=== PATIENT | female | born 1940 | race Caucasian/White ===

== ENCOUNTER 2018-05-13 17:32 | Inpatient (IN) ==
[2018-05-13] MEDS ORDERED: Famotidine 20 MG/2 ML VIAL IVP ONE (17:54)
[2018-05-13] MEDS ORDERED: Promethazine 12.5 MG in 0.9 % Sodium Chloride 50 ML IVPB ONE (17:55)
[2018-05-13] MEDS ORDERED: 0.9 % Sodium Chloride 1,000 ML IVC ONE (17:57)
--- NOTE | 2018-05-13 17:57 | Emergency Department Note ---
Disposition Clinical Impression: Elevated troponin, Atrial fibrillation with controlled ventricular rate, Gastric volvulus, Hiatal hernia Nausea & vomiting Qualifiers: Vomiting type: unspecified Vomiting Intractability: intractable Qualified Code( s): R11.2 - Nausea with vomiting, unspecified Disposition: Admitted As Inpatient Condition: Fair Referrals: Maxwell aRmos MD [Primary Care Provider] - Forms: ED Satisfaction Letter Time of Disposition: 18:50 Nausea/Vomiting/Diarrhea HPI - General Chief complaint: ED Nausea/Vomiting/Diarrhea Stated complaint: Vomiting Time Seen by Provider: 05/13/18 17:45 Source: patient Mode of arrival: ambulatory Limitations: no limitations Nursing Notes Reviewed: Yes Vital Signs Reviewed: Yes - History of Present Illness HPI Narrative: Patient presents with ongoing nausea and vomiting. She was seen in the emergency department yesterday for similar symptoms and states her symptoms returned today. She complains of back pain but states this is chronic and received injections by her pain specialist today. She is taking Zofran without relief. She denies abdominal pain or other acute GI/ symptoms Pt Subjective Complaint: nausea, vomiting Onset (ago): day(s) Description of emesis: food contents Associated Abdominal Pain: No Improves with: nothing Worsens with: vomiting Associated symptoms: Reports: other (Back pain) - Related Data Home Medications Medication Instructions Recorded Confirmed Ibuprofen [Advil] 200 mg PO BID PRN 01/09/18 01/09/18 Levothyroxine Sodium 75 mcg PO 0630 01/09/18 01/09/18 Lisinopril [Zestril] 5 mg PO DAILY 01/09/18 01/09/18 Omeprazole [PriLOSEC] 20 mg PO DAILY 01/09/18 01/09/18 Simvastatin [Zocor] 10 mg PO HS 01/09/18 01/09/18 Previous Rx's Medication Instructions Recorded Ondansetron ODT [Zofran ODT] 4 mg SL Q6HR PRN #10 tab.rapdis 05/11/18 Allergies Allergy/AdvReac Type Severity Reaction Status Date / Time tramadol AdvReac Dizziness Verified 05/12/18 13:38 All systems ED: reviewed and negative except as stated. Constitutional: Reports: as per HPI Eyes: Reports: as per HPI ENT ED: Reports: as per HPI Cardiovascular: Reports: as per HPI Respiratory: Reports: as per HPI Gastrointestinal: Reports: nausea, vomiting Genitourinary: Reports: as per HPI Musculoskeletal: Reports: back pain Integumentary: Reports: as per HPI Neurological: Reports: as per HPI Psychiatric: Reports: as per HPI Endocrine: Reports: as per HPI Hematological/Lymphatic: Reports: as per HPI Allergic/Immunologic: Reports: as per HPI Past Medical History - Past Medical History Source: patient Medical history: Reports: GERD, hyperlipidemia, hypertension, thyroid disease Surgical history: Reports: hysterectomy Psychiatric history: Reports: no psych history - Social History Smoking Status: Never smoker Smokeless Tobacco Status: No Alcohol use: Reports: none Drug use: Reports: none Physical Exam - General Limitations: no limitations General appearance: alert, in no apparent distress - Head Head exam: atraumatic - Eye Eye exam: Present: normal appearance - ENT ENT exam: normal exam - Neck Neck exam: Present: normal inspection - Chest Chest inspection: Present: normal inspection, symmetric chest wall rise - Respiratory Respiratory exam: Present: normal lung sounds bilaterally - Cardiovascular Cardiovascular exam: Present: tachycardia, irregular rhythm, normal heart sounds - Abdominal Exam Abdominal exam: Present: soft, Non-Tender. Absent: tenderness, distention, guarding, rebound - Rectal Exam Rectal exam: Present: deferred - Extremities Exam Extremities exam: Present: normal inspection - Neurological Exam Neurological exam: Present: alert, oriented X3, CN II-XII intact - Psychiatric Psychiatric exam: Present: normal affect, normal mood - Skin Skin exam: Present: warm, dry, intact Course Course Narrative: Patient presents with ongoing nausea and vomiting. She is now tachycardic with an irregularly irregular rhythm suspicious for new onset atrial fibrillation with RVR. She has a benign abdominal exam but given her ongoing symptoms I will obtain a CT scan her abdomen and pelvis. IV fluids initiated. IV Cardizem initiated. Labs ordered - Reevaluation(s) Reevaluation #1: Patient resting couple. She continues to deny abdominal pain. Test results discussed Reevaluation #2: Dr. Price recs NGT and admit to medicine service with his consultation to follow - Consultations Consultation #1: case d/w radiologist 19:40: concern for complex gastric anatomy, hiatal hernia , gastric volvulus Consultation #2: call placed to surgery health information technologist. case d/w Dr. Price at 19:42 who is he will review the CT scan. Vital Signs Temperature 97.9 F 05/13/18 17:33 Pulse Rate 168 05/13/18 17:33 Respiratory Rate 18 05/13/18 17:33 Blood Pressure 136/101 05/13/18 17:33 O2 Sat by Pulse Oximetry 93 05/13/18 17:33 Temperature 97.9 F 05/13/18 17:42 Pulse Rate 84 05/13/18 19:54 Respiratory Rate 16 05/13/18 18:54 Blood Pressure 162/125 05/13/18 19:54 O2 Sat by Pulse Oximetry 92 05/13/18 19:54 Oxygen Delivery Oxygen Delivery Nasal Cannula Nausea/Vomiting/Diarrhea - Lab Data Lab results reviewed: Yes I reviewed the patient's lab results. Result diagrams: 05/13/18 18:00 05/13/18 18:00 Lab Results 05/13/18 05/13/18 05/13/18 Range/Units 18:00 18:00 18:00 WBC 18.6 H D (4.3-11.1) K/mcL RBC 5.15 H (3.82-4.97) M/mcL Hgb 15.5 H (11.5-15.4) g/dL Hct 46.2 H (35.3-44.9) % MCV 89.7 (83.0-100.0) fL MCH 30.1 (28.0-33.3) pg MCHC 33.5 (31.6-35.5) g/dL RDW 13.4 (11.5-14.5) % Plt Count 238 (140-400) K/mcL MPV 9.0 L (9.4-12.4) fL Immature Gran % 0.6 (0-4) % Seg Neutrophils % 87.5 % Lymphocytes % 5.7 % Monocytes % 6.1 % Eosinophils % 0.0 % Basophils % 0.1 % Neutrophils # 16.3 H (1.6-8.9) K/mcL Lymphocytes # 1.1 (0.6-4.6) K/mcL Monocytes # 1.1 (0.0-1.3) K/mcL Eosinophils # 0.0 (0.0-0.6) K/mcL Basophils # 0.0 (0.0-0.2) K/mcL PT 11.5 (9.4-12.1) Seconds INR 1.1 Sodium 137 (136-145) mEq/L Potassium 3.5 (3.5-5.1) mEq/L Chloride 101 (98-107) mEq/L Carbon Dioxide 21 L (23-29) mEq/L BUN 36 H (8-23) mg/dL Creatinine 1.19 (0.60-1.20) mg/dL Est GFR ( Amer) 53 L (> 60) Est GFR (Non-Af Amer) 44 L (> 60) BUN/Creatinine Ratio 30 H (6-26) Glucose 158 H (70-105) mg/dL Calculated Osmolality 296 (280-300) Calcium 10.3 (8.6-10.3) mg/dL Magnesium 1.8 (1.6-2.6) mg/dL Total Bilirubin 0.8 (0.3-1.0) mg/dL AST 32 (13-39) Units/L ALT 15 (7-52) Units/L Alkaline Phosphatase 101 (34-104) Units/L Troponin I 0.04 H* (< 0.04) ng/mL Serum Total Protein 7.5 (6.4-8.9) g/dL Albumin 4.4 (3.5-5.7) g/dL Globulin 3.1 (2.4-3.5) g/dL Albumin/Globulin Ratio 1.4 (1.1-2.2) Lipase 44 (11-82) Units/L - Radiology Data Radiology results reviewed: Yes I reviewed the patient's radiology results. - EKG Data EKG attestation: Yes I reviewed and interpreted this EKG. EKG results narrative: Irregularly irregular rhythm 138 bpm QRS 86 QT/QTC 306/386. No acute ST segment elevation Critical Care Time Critical Care Time: Yes Total Critical Care Time: 60 Attestation: The high probability of a clinically significant, sudden or life threatening deterioration of the [] system(s) required my full and direct attention, intervention and personal management. The aggregate critical care time was [] minutes. This time is in addition to time spent performing reported procedures but includes the following: [] Data Review and interpretation [] Patient assessment and monitoring of vital signs [] Documentation [] Medication orders and management
[2018-05-13 18:12] LABS: Basophils % 0.1 %; Hematocrit 46.2 % (35.3-44.9); Hemoglobin 15.5 g/dL (11.5-15.4); Immature Granulocytes % 0.6 % (0-4); Lymphocytes # 1.1 K/mcL (0.6-4.6); Lymphocytes % 5.7 %; Mean Corpuscular HGB Conc 33.5 g/dL (31.6-35.5); Mean Corpuscular Hemoglobin 30.1 pg (28.0-33.3); Mean Corpuscular Volume 89.7 fL (83.0-100.0); Monocytes # 1.1 K/mcL (0.0-1.3); Monocytes % 6.1 %; Platelet Count 238 K/mcL (140-400); Red Blood Count 5.15 M/mcL (3.82-4.97); Red Cell Distribution Width 13.4 % (11.5-14.5); Segmented Neutrophils % 87.5 %
[2018-05-13 18:13] LABS: Neutrophils # 16.3 K/mcL (1.6-8.9)
[2018-05-13 18:18] LABS: INR 1.1; Prothrombin Time 11.5 Seconds (9.4-12.1)
[2018-05-13 18:33] LABS: Albumin 4.4 g/dL (3.5-5.7); Albumin/Globulin Ratio 1.4 (1.1-2.2); Bilirubin,Total 0.8 mg/dL (0.3-1.0); Calcium 10.3 mg/dL (8.6-10.3); Globulin 3.1 g/dL (2.4-3.5); Magnesium 1.8 mg/dL (1.6-2.6); Potassium 3.5 mEq/L (3.5-5.1); Total Protein 7.5 g/dL (6.4-8.9)
[2018-05-13 18:39] LABS: Troponin I 0.04 ng/mL (< 0.04)
[2018-05-13] MEDS ORDERED: *HR* OxyCODONE/APAP 10/325 TABLET PO ONE (19:42)
--- NOTE | 2018-05-13 21:42 | Internal Med History&Physical ---
Date of Encounter: 05/13/18 Time of Encounter: 21:37 Internal Medicine - H&P: HPI Chief complaint: Abdominal pain Admitted From: Emergency Dept Plans for Post Hospital Care: Home History of present illness: Ms. Wolf is a 77 year old female with history of hypertension, hyperlipidemia , hypothyroidism, hiatal hernia who presents with abdominal pain with nausea and vomiting that has been going on for a couple days. It went away yesterday but came back earlier today. She was seen by Dr. Welsh earlier today for lumbar radiculopathy and received an injection. In the ED the patient was in A. fib with RVR upon presentation and converted sinus rhythm later in the ED. She converted sinus after placement of the NG tube. Labs showed leukocytosis and mild elevated troponin of 0.04. Normal LFTs. A CT abdomen and pelvis was done which showed markedly distended stomach with gastric outlet obstruction related to previously noted hiatal hernia suspected gastric volvulus. Surgery were contacted and recommended an NG tube at admission. The patient denies any headache, blurry vision, chest pain, shortness breath, diarrhea, chest patient, urinary symptoms, or neurological symptoms. Past Med Surg Social Fam HX - Past Medical History Medical history: GERD, hyperlipidemia, hypertension, thyroid disease Psychiatric history: no psych history - Past Surgical History Surgical History: hysterectomy - Social History Smoking Status: Never smoker Smokeless Tobacco Status: No Alcohol use: none Drug use: none Internal Medicine - H&P: Meds Ibuprofen [Advil] 200 mg PO BID PRN 01/09/18 [History] Levothyroxine Sodium 75 mcg PO 0630 01/09/18 [History] Omeprazole [PriLOSEC] 20 mg PO DAILY 01/09/18 [History] Simvastatin [Zocor] 10 mg PO HS 01/09/18 [History] Ondansetron ODT [Zofran ODT] 4 mg SL Q6HR PRN #10 tab.rapdis 05/11/18 [Rx] Lisinopril-HCTZ 10-12.5 [Prinzide 10-12.5] 1 tab PO DAILY 05/13/18 [History] Tramadol HCl [Ultram] 50 mg PO HS 05/13/18 [History] 3 Allergy/AdvReac Type Severity Reaction Status Date / Time tramadol AdvReac Dizziness Verified 05/13/18 20:27 All Systems PM: A 10-system review of systems was performed and is negative for pertinent findings except as documented above in the HPI. Review of systems: All systems reviewed are negative except as mentioned above - Constitutional Vitals: Temp Pulse Resp BP Pulse Ox 97.9 F 94 18 166/135 94 05/13/18 17:42 05/13/18 21:06 05/13/18 21:06 05/13/18 21:06 05/13/18 21:06 Exam: GEN: NAD HEENT: AT, NC, No cyanosis, oral mucosa is moist, No JVD Lymphatics: No lymphadenoapthy Eyes: Extrocular muscles intact, anicteric CVS:RRR. S1, S2, No m/r/g RESP: CTAB ABD: Soft, gastric tenderness, ND, + hyperactive bowel sounds EXT: No edema, No rashes, 2+ DP NEURO: Nonfocal, CN II-XII intact, No focal motor or sensory deficits Psych: Cooperative, Not anxious or depressed Internal Med - H&P Results - Labs CBC & Chem 7: 05/13/18 18:00 05/13/18 18:00 - Assessment and plan (1) Gastric volvulus Current Visit: Yes Status: Acute Assessment and plan: Admit to hospitalist. Conservative management for now. NG tube placed. Surgery consulted. IV fluids. Antiemetics. Pain control. (2) New onset a-fib Current Visit: Yes Status: Acute Assessment and plan: New-onset. No history of it. Back in sinus after NG tube placement. Did not require any medications. We will check an echocardiogram. Check TSH. Check magnesium level. This was a one-time episode and a discussion regarding anticoagulation needs to be had given her age and history of hypertension however we will hold off on that for now in case any surgical needs. Currently rate controlled and back in sinus. (3) Hypertension Current Visit: Yes Status: Acute Assessment and plan: Resume home antihypertensives Qualifiers: Hypertension type: essential hypertension Qualified Code(s): I10 - Essential (primary) hypertension (4) Leukocytosis Current Visit: Yes Status: Acute Assessment and plan: Likely reactive. No signs of infection. We will hydrate and check labs in the morning. Qualifiers: Leukocytosis type: unspecified Qualified Code(s): D72.829 - Elevated white blood cell count, unspecified (5) Elevated troponin Current Visit: Yes Status: Acute Assessment and plan: Likely demand from A. fib with RVR. We will trend for now. Check echocardiogram. (6) DVT prophylaxis Current Visit: Yes Status: Acute Assessment and plan: Heparin subcutaneous - Time Spent With Patient Total time spent is greater than 50% in coordination of care (as documented) at patient's floor/unit and/or counseling patient:
[2018-05-13] MEDS ORDERED: Acetaminophen 325 MG TABLET PO PRN (21:46)
[2018-05-13] MEDS ORDERED: Naloxone 0.4 MG/ML INJ IVP PRN (21:46)
[2018-05-13] MEDS ORDERED: Ondansetron 4 MG/2 ML VIAL IVP PRN (21:47)
[2018-05-13] MEDS ORDERED: Potassium Chloride 40 MEQ, Lidocaine 1% 2 ML in D5% in Water 500 ML IVPB ONE (21:48)
[2018-05-13] MEDS ORDERED: 0.9 % Sodium Chloride 1,000 ML IVC SCH (22:00)
[2018-05-13] MEDS: *HR* Heparin 5,000 UNIT/ML VIAL SQ SCH (23:21)
[2018-05-14] MEDS: *HR* Heparin 5,000 UNIT/ML VIAL SQ SCH ×3 (06:06→20:17)
[2018-05-14 06:36] LABS: Basophils % 0.1 %; Hematocrit 43.7 % (35.3-44.9); Hemoglobin 14.6 g/dL (11.5-15.4); Immature Granulocytes % 0.7 % (0-4); Lymphocytes # 1.1 K/mcL (0.6-4.6); Lymphocytes % 6.8 %; Mean Corpuscular HGB Conc 33.4 g/dL (31.6-35.5); Mean Corpuscular Hemoglobin 30.3 pg (28.0-33.3); Mean Corpuscular Volume 90.7 fL (83.0-100.0); Mean Platelet Volume 8.9 fL (9.4-12.4); Monocytes # 1.3 K/mcL (0.0-1.3); Monocytes % 7.9 %; Platelet Count 194 K/mcL (140-400); Red Blood Count 4.82 M/mcL (3.82-4.97); Red Cell Distribution Width 13.5 % (11.5-14.5); Segmented Neutrophils % 84.5 %
[2018-05-14 06:54] LABS: BUN/Creatinine Ratio 32 (6-26); Blood Urea Nitrogen 29 mg/dL (8-23); Calcium 9.2 mg/dL (8.6-10.3); Carbon Dioxide 25 mEq/L (23-29); Chloride 105 mEq/L (98-107); Glucose 107 mg/dL (70-105); Magnesium 1.9 mg/dL (1.6-2.6); Osmolality,Calculated 294 (280-300); Potassium 3.6 mEq/L (3.5-5.1); Sodium 139 mEq/L (136-145); eGFR For African Americans > 60 (> 60); eGFR For Non-African Americans 59 (> 60)
[2018-05-14 07:07] LABS: Thyroid Stimulating Hormone 1.165 mcIU/mL (0.340-5.600)
[2018-05-14] MEDS ORDERED: Lidocaine -MPF 2% 2 ML VIAL ONE ×3 (07:12→09:05)
[2018-05-14] MEDS ORDERED: *HR* Propofol 200 MG/20 ML VIAL IVP ONE ×2 (07:12→09:05)
--- NOTE | 2018-05-14 08:19 | Anesthesia Evaluation PreOp ---
Date of Encounter: 05/14/18 Time of Encounter: 08:22 - Past History Planned Operation: EGD Cardiac History: HTN, Hyperlipidemia, Arrhythmia (afib) Pulmonary History: Denies Any Significant HX BINGO ATTENDANT History: Denies Any Significant HX Other Medical History: GERD, Other (hiatal hernia, gastroenteritis) Anesthesia History: No Prior Anesthetic Complications : No Alcohol Use: none Drug use: none Medications and Allergies Ibuprofen [Advil] 200 mg PO BID PRN 01/09/18 [History] Levothyroxine Sodium 75 mcg PO 0630 01/09/18 [History] Omeprazole [PriLOSEC] 20 mg PO DAILY 01/09/18 [History] Simvastatin [Zocor] 10 mg PO HS 01/09/18 [History] Ondansetron ODT [Zofran ODT] 4 mg SL Q6HR PRN #10 tab.rapdis 05/11/18 [Rx] Lisinopril-HCTZ 10-12.5 [Prinzide 10-12.5] 1 tab PO DAILY 05/13/18 [History] Tramadol HCl [Ultram] 50 mg PO HS 05/13/18 [History] 3 Allergy/AdvReac Type Severity Reaction Status Date / Time tramadol AdvReac Dizziness Verified 05/13/18 20:27 - Meds/Allergy Pre-op Review Medications Reviewed: Yes Allergies Reviewed: Yes Beta Blockers on Current Med List: No Anesthesia Results - Labs 05/14/18 06:12 05/14/18 06:12 Laboratory Tests 05/12/18 05/13/18 05/14/18 14:21 18:00 06:12 WBC 16.5 H Hgb 14.6 Hct 43.7 Plt Count 194 PT 11.5 INR 1.1 APTT 31.3 Sodium Potassium Chloride Carbon Dioxide Est GFR (Non-Af Amer) Glucose 05/14/18 06:12 WBC Hgb Hct Plt Count PT INR APTT Sodium 139 Potassium 3.6 Chloride 105 Carbon Dioxide 25 Est GFR (Non-Af Amer) 59 L Glucose 107 H - Imaging EKG: report reviewed, image reviewed Anesthesia Exam Vital Signs/O2 Sat/Glucose, Most Recent Temp Pulse Resp BP Pulse Ox 97.6 F 82 16 150/81 95 05/14/18 06:53 05/14/18 06:53 05/14/18 06:53 05/14/18 06:53 05/14/18 06:53 Blood Glucose* 106 - HEENT Pupil (Motor): Pupils equal Mallampati: II - BINGO ATTENDANT BINGO ATTENDANT Motor: Normal RUE, Normal LUE, Normal RLE, Normal LLE, Normal Face BINGO ATTENDANT Sensory: Normal: RUE, LUE, RLE, LLE, Face - Cardiac Rhythm: Regular Murmur: None - Pulmonary Breath Sounds: bilateral Clear Respiratory Effort: Symmetrical Anesthesia Assess/Plan ASA Score: 3 Modified Wm Scale for Level of Consciousness: Cooperative, oriented, and tranquil Anesthetic Plan: MAC Monitoring Plan: Standard Monitors Recovery Plan: PACU
[2018-05-14] MEDS ORDERED: Dexamethasone 4 MG/ML VIAL ONE (09:05)
[2018-05-14] MEDS ORDERED: *HR* FentaNYL (PF) 100 MCG/2 ML VIAL ONE ×3 (09:05→11:20)
[2018-05-14] MEDS ORDERED: Ondansetron 4 MG/2 ML VIAL ONE (09:05)
[2018-05-14] MEDS ORDERED: *HR* Succinylcholine 200 MG/10 ML VIAL IVP ONE (09:07)
[2018-05-14] MEDS ORDERED: *HR* Rocuronium Bromide 50 MG/5 ML VIAL ONE (09:07)
[2018-05-14] MEDS ORDERED: Lidocaine -MPF 4% 5 ML AMPUL ONE (09:08)
[2018-05-14] MEDS ORDERED: *HR* Labetalol 20 MG/4 ML SYRINGE IVP PRN ×2 (09:28→13:13)
[2018-05-14] MEDS ORDERED: Ondansetron 4 MG/2 ML VIAL IVP ONE (09:28)
[2018-05-14] MEDS ORDERED: Dexamethasone 4 MG/ML VIAL IVP ONE (09:28)
[2018-05-14] MEDS ORDERED: *HR* Morphine 2 MG/ML SYRINGE IVP PRN ×2 (09:28→13:13)
--- NOTE | 2018-05-14 09:33 | Anesthesia Progress Note ---
Date of Encounter: 05/14/18 Time of Encounter: 09:32 Anesthesia Note - Note Note: Patient with gastric volvulus. Evaluated earlier this morning by anesthesia for EGD under MAC - see Dr. Hassan's note. Urgently from Endo to OR for exploratory laparotomy. Anes Supervising Prov Stmt: Anesthesia Assess/Plan ASA Score: 3E Anesthetic Plan: General Anesthesia Monitoring Plan: Standard Monitors, IV access, possible invasive monitoring Recovery Plan: PACU Patient is awake and alert, understands the anesthesia plan. Also discussed with the patient's . Risks, benefits, and alternatives discussed. Patient and wishe to proceed. Consent signed by .
[2018-05-14] MEDS ORDERED: CefOXitin 2,000 MG VIAL ONE (10:06)
[2018-05-14] MEDS ORDERED: EPHEDrine 50 MG/ML VIAL ONE (10:57)
[2018-05-14] MEDS ORDERED: cefOXitin 2,000 MG in Water for inj. (sterile) 20 ML 20 ML IVP ONE (10:59)
[2018-05-14] MEDS ORDERED: Acetaminophen IV 1,000 MG/100 ML INFUS..BTL ONE (11:19)
[2018-05-14] MEDS ORDERED: Neostigmine Methylsulfate 3 MG/3 ML SYRINGE ONE (12:05)
[2018-05-14] MEDS ORDERED: *HR* Morphine 10 MG/ML VIAL ONE (12:11)
[2018-05-14] MEDS ORDERED: *HR* Metoprolol 5 MG/5 ML VIAL IVP ONE (12:16)
--- NOTE | 2018-05-14 12:22 | Operative Note ---
Date of procedure: 05/14/18 Pre-op diagnosis: Gastric outlet obstruction with gastric volvulus Post-op diagnosis: same Procedure: Exporter laparotomy with reduction of gastric volvulus hiatal hernia repair Jairo fundoplication Gastropexy Anesthesia: GETMayi Surgeon: Erasmo Price Was there an litigation assistant present: Yes Education Professional: Peggy Arceo Estimated blood loss (cc): 5 Specimen: Hernia sac Condition: stable Disposition: ICU Procedure in Detail: After informed consent, patient was taken the operating placed supine position. After adequate sedation and anesthesia the abdomen was prepped and draped. An upper midline incision was made. The abdomen was entered and a Bookwalter retractor was placed on the field. I was able to identify the stomach which the majority of which had herniated into the chest. This is reduced with some gentle traction. Once reduced the spleen was retracted laterally as the transverse colon was retracted caudally. The hernia defect was easily identified the hernia sac was then dissected free out of the chest and off the esophagus. Once completed the hiatus was then closed with interrupted 2-0 Ethibond pledgets once it had been secured then a Jairo fundoplication was performed. Short gastrics were taken down with Harmonic scalpel. 3 individual Ethibond sutures are placed in the wrap. The stomach was then pexied to the posterior aspect of the anterior abdominal wall. 5 individual sutures are used place in the stomach and the abdominal wall keep it in place. NG tube had been maintained in the stomach. A 19-Tai[place]ese Dawson drain was placed in the abdomen close to the hiatus and around the spleen. Was brought out the left abdominal wall. The abdomen was closed with loop PDS suture 2. Gabriela were placed in the skin.
[2018-05-14] MEDS ORDERED: Ondansetron 4 MG/2 ML VIAL IVP PRN (13:13)
[2018-05-14] MEDS ORDERED: Naloxone 0.4 MG/ML INJ IVP PRN (13:13)
[2018-05-14] MEDS ORDERED: Acetaminophen 325 MG TABLET PO PRN (13:13)
[2018-05-14] MEDS ORDERED: *HR* HYDROmorphone 20 MG/20 ML PCA IVC PRN (13:13)
[2018-05-14] MEDS: 0.9 % Sodium Chloride 1,000 ML IVC SCH (13:43)
[2018-05-15] MEDS: 0.9 % Sodium Chloride 1,000 ML IVC SCH ×4 (00:26→19:41)
[2018-05-15] MEDS: *HR* Heparin 5,000 UNIT/ML VIAL SQ SCH ×3 (05:28→21:00)
--- NOTE | 2018-05-15 14:34 | General Surgery Progress Note ---
Date of Encounter: 05/15/18 Time of Encounter: 14:30 - Assessment and Plan (1) Gastric outlet obstruction Current Visit: Yes Status: Acute POD #1 Exploratory laparotomy with reduction of gastric volvulus, hiatal hernia repair, Jairo fundoplication, Gastropexy with Dr. Price NPO NG tube to LIWS IV fluids Continue WILLIAM drain Pain control- Dilaudid SUPERVISOR CURING ROOM PPI therapy daily Incentive spirometer every 1 hour while awake Out of bed to chair BID Ambulate with assistance Continue borrero catheter for strict I&Os Repeat am labs- CBC, BMP May transfer to (2) Atrial fibrillation with rapid ventricular response Current Visit: Yes Status: Acute Continue cardizem gtt for management of HR Patient NPO- must maintain gtt Management per medicine service (3) Hyperlipidemia Current Visit: Yes Status: Chronic Hold PO medications for now Qualifiers: Hyperlipidemia type: unspecified Qualified Code(s): E78.5 - Hyperlipidemia , unspecified (4) Hypothyroidism Current Visit: Yes Status: Chronic Transitioned to IV levothyroxine Qualifiers: Hypothyroidism type: unspecified Qualified Code(s): E03.9 - Hypothyroidism , unspecified (5) Hypertension Current Visit: Yes Status: Acute Controlled at this time Management per medicine service Qualifiers: Hypertension type: essential hypertension Qualified Code(s): I10 - Essential (primary) hypertension (6) DVT prophylaxis Current Visit: Yes Status: Acute Heparin 5000 units SQ twice daily for DVT prophylaxis Ambulate hallways TID with assistance, out of bed to chair BID EPCDs to bilateral lower extrimities for DVT prophylaxis Subjective Patient reports: no new complaints, feels better, no flatus, no bowel movement, afebrile, other (Patient with atrial fibrillation with RVR this morning- HR in the 130's, cardizem gtt started and patient HR in the 90's to low 100's) Objective Vital Signs - Last 8 Hours Temp Pulse Resp BP Pulse Ox 05/15/18 14:00 96 16 120/68 92 05/15/18 12:59 105 17 112/82 90 05/15/18 12:00 100 19 122/83 91 05/15/18 11:44 97.6 F 05/15/18 11:00 101 21 122/73 91 05/15/18 10:00 96 20 121/86 93 05/15/18 09:00 140 22 145/85 92 05/15/18 08:04 98.2 F 05/15/18 08:00 137 20 149/88 92 05/15/18 07:35 142 18 139/89 92 Intake and Output 05/14/18 05/15/18 05/15/18 23:59 07:59 15:59 Intake Total 1005 / 1005 1095 / 1095 Output Total 115 / 115 130 / 130 95 / 95 Balance -115 / -115 875 / 875 1000 / 1000 Intake: IV Fluids 1005 / 1005 1095 / 1095 0.9 % Sodium Chloride 1,000 ML 1000 / 1000 1000 / 1000 @ 100 mls/hr IVC .Q10H DEDE Rx#: [id number] Cardizem 50 MG In 0.9 % Sodium 5 / 5 95 / 95 Chloride 40 ML @ 5 MG/HR 5 mls/ hr IVC .Q10H DEDE Rx#:[id number] Output: Catheter 75 / 75 90 / 90 75 / 75 Wound Drainage 40 / 40 40 / 40 20 / 20 Lower Abdomen 40 / 40 40 / 40 20 / 20 Other: Weight 96.6 kg Blood Glucose* 99 80 Patient Weight 05/15/18 23:59 Weight 96.6 kg - General physical appearance well developed, well nourished, no distress (Denies pain) - Eyes normal ocular movement - ENT normal mucosa, atraumatic, normocephalic - Neck Neck exam: trachea midline - Respiratory normal respiratory effort, clear to auscultation, other (diminished bibasilar bases) - Cardiovascular Cardiovascular exam: Present: irregular rhythm - Abdomen Abdomen: Present: soft, tender (minimal, expected tenderness), wound (NG tube to LIWS with scant amount of bilious drainage noted; WILLIAM drain with 60ml of serousang. drianage noted since midnight) - Incision Incision: Present: clean and dry, intact - Genitourinary other (borrero catheter to SD) - Neurologic CN 2-12 grossly intact - Psychiatric oriented to time, oriented to person, oriented to place, speech is normal, memory intact - Labs 05/14/18 06:12 05/14/18 06:12 - VTE Documentation of Mechanical Device: Intermittent pneumatic compression device Consult Discharge Plan - Plan Referrals: Maxwell Ramos MD [Primary Care Provider] - - Attending Attestation For this encounter, I have reviewed the HAT BAND ATTACHER or PA documentation, treatment plan, and medical decision making; and I have had face to face time with this patient.
--- NOTE | 2018-05-15 14:36 | Internal Med Progress Note ---
Date of Encounter: 05/15/18 Time of Encounter: 14:34 - Assessment and plan (1) Elevated troponin Current Visit: Yes Status: Acute Assessment and plan: Possible secondary to A. fib with RVR, and gastric volvuls currently rate controlled close monitoring (2) Gastric volvulus Current Visit: Yes Status: Acute Assessment and plan: S/P Exporter laparotomy with reduction of gastric volvulus hiatal hernia repair Jairo fundoplication Gastropexy (3) New onset a-fib Current Visit: Yes Status: Acute Assessment and plan: Currently rate controlled, continue Cardizem, cardiac echo normal left ventricular ejection fraction mild left ventricular diastolic dysfunction, titrate the Cardizem drip as needed, replace potassium keep potassium more than 4 magnesium more than 2 (4) DVT prophylaxis Current Visit: Yes Status: Acute (5) Hypertension Current Visit: Yes Status: Acute Assessment and plan: Controlled Qualifiers: Qualified Code(s): I10 - Essential (primary) hypertension (6) Leukocytosis Current Visit: Yes Status: Acute Assessment and plan: No evidence of pneumonia or urinary tract infection possible secondary to vomiting and gastric volvulus check CBC next morning Qualifiers: Qualified Code(s): D72.829 - Elevated white blood cell count, unspecified - Time Spent With Patient Total time spent is greater than 50% in coordination of care (as documented) at patient's floor/unit and/or counseling patient: - Subjective Interval history: Patient was admitted with Gastric outlet obstruction with gastric volvulus S/P Exporter laparotomy with reduction of gastric volvulus ,hiatal hernia repair , Jairo fundoplication and Gastropexy. Patient denies any nausea vomiting, denies any chest pain or shortness of breath, she denies any abdominal pain, denies any cough, no history of recent dysuria - Constitutional Vitals: Temp Pulse Resp BP Pulse Ox 97.6 F 96 16 120/68 92 05/15/18 11:44 05/15/18 14:00 05/15/18 14:00 05/15/18 14:00 05/15/18 14:00 General appearance: Present: A&O X 3, pleasant, no acute distress - Head Head exam: Present: atraumatic, normocephalic - Respiratory Respiratory exam: Present: CTAB. Absent: accessory muscle use, rales, rhonchi, wheezes - Cardiovascular Cardiovascular exam: Present: irregular rhythm, +S1, +S2. Absent: diastolic murmur, gallop, rubs, systolic murmur - GI/Abdominal GI/Abdominal exam: Present: hypoactive bowel sounds, soft. Absent: distended - Extremities Exam Extremities exam: Present: warm, radial pulses palpable and symmetrical. Absent : calf tenderness, cyanotic, pedal edema - Neurological Exam Neurological exam: Present: CN II-XII intact, oriented X3, no focal deficits Internal Medicine: Result - Labs CBC & Chem 7: 05/14/18 06:12 05/14/18 06:12 - ABG Interpretation ABG results: PT/INR, D-dimer PT 11.5 Seconds (9.4-12.1) 05/13/18 18:00 - VTE Documentation of Mechanical Device: Intermittent pneumatic compression device Consult Discharge Plan - Plan Referrals: Maxwell Ramos MD [Primary Care Provider] -
[2018-05-15] MEDS ORDERED: *HR* HYDROmorphone 20 MG/20 ML PCA IVC PRN (15:14)
[2018-05-15] MEDS ORDERED: Naloxone 0.4 MG/ML INJ IVP PRN (15:14)
[2018-05-15] MEDS ORDERED: Ondansetron 4 MG/2 ML VIAL IVP PRN (15:14)
[2018-05-15] MEDS ORDERED: Potassium Phosphate 44 MEQ in 0.9 % Sodium Chloride 250 ML IVPB ONE (15:14)
[2018-05-15] MEDS ORDERED: Benzonatate 100 MG CAPSULE PO STA (19:19)
[2018-05-16] MEDS: 0.9 % Sodium Chloride 1,000 ML IVC SCH (04:32)
[2018-05-16] MEDS: *HR* Heparin 5,000 UNIT/ML VIAL SQ SCH ×3 (04:34→23:27)
[2018-05-16 07:20] LABS: Hematocrit 36.4 % (35.3-44.9); Mean Corpuscular HGB Conc 31.9 g/dL (31.6-35.5); Mean Corpuscular Hemoglobin 29.8 pg (28.0-33.3); Mean Corpuscular Volume 93.6 fL (83.0-100.0); Mean Platelet Volume 10.2 fL (9.4-12.4); Platelet Count 142 K/mcL (140-400); Red Blood Count 3.89 M/mcL (3.82-4.97); Red Cell Distribution Width 13.7 % (11.5-14.5)
[2018-05-16 07:31] LABS: BUN/Creatinine Ratio 41 (6-26); Blood Urea Nitrogen 39 mg/dL (8-23); Calcium 8.6 mg/dL (8.6-10.3); Carbon Dioxide 18 mEq/L (23-29); Chloride 112 mEq/L (98-107); Glucose 86 mg/dL (70-105); Osmolality,Calculated 305 (280-300); Potassium 3.8 mEq/L (3.5-5.1); Sodium 143 mEq/L (136-145); eGFR For African Americans > 60 (> 60); eGFR For Non-African Americans 56 (> 60)
[2018-05-16 07:33] LABS: Hemoglobin 11.6 g/dL (11.5-15.4)
[2018-05-16] MEDS: Pantoprazole 40 MG VIAL IVP SCH (08:55)
[2018-05-16] MEDS: Levothyroxine Sodium 100 MCG VIAL IVP SCH (08:56)
--- NOTE | 2018-05-16 10:44 | Internal Med Progress Note ---
Date of Encounter: 05/16/18 Time of Encounter: 15:00 - Assessment and plan (1) Elevated troponin Current Visit: Yes Status: Acute Assessment and plan: Secondary to atrial fibrillation, need a stress test once stable, no chest pain or shortness of breath (2) Gastric volvulus Current Visit: Yes Status: Acute (3) New onset a-fib Current Visit: Yes Status: Acute Assessment and plan: Infected sinus rhythm yesterday now rate controlled. Will continue Cardizem drip today possible change to oral tomorrow if the patient is able to take oral medication awaiting recommendation from surgery team, cardiac echo normal ejection fraction (4) DVT prophylaxis Current Visit: Yes Status: Acute (5) Hypertension Current Visit: Yes Status: Acute Qualifiers: Hypertension type: essential hypertension Qualified Code(s): I10 - Essential (primary) hypertension Code(s): I10 - Essential (primary) hypertension SNOMED Code(s): 73408911 (6) Leukocytosis Current Visit: Yes Status: Acute Assessment and plan: Patient is currently afebrile, no evidence of infection, close monitoring CBC next a.m. awaiting UA Qualifiers: Leukocytosis type: unspecified Qualified Code(s): D72.829 - Elevated white blood cell count, unspecified (7) Volume depletion Current Visit: Yes Status: Acute Assessment and plan: Gentle hydration - Time Spent With Patient Total time spent is greater than 50% in coordination of care (as documented) at patient's floor/unit and/or counseling patient: 25 - 35 minutes - Subjective Interval history: Patient was admitted with Gastric outlet obstruction with gastric volvulus S/P Exporter laparotomy with reduction of gastric volvulus ,hiatal hernia repair , Jairo fundoplication and Gastropexy. Patient denies any nausea vomiting, denies any chest pain or shortness of breath, patient converted to sinus rhythm yesterday, now rate controlled, low gastric output today from nasogastric tube - Constitutional Vitals: Temp Pulse Resp BP Pulse Ox 98.9 F 67 22 151/69 92 05/16/18 07:19 05/16/18 07:21 05/16/18 07:19 05/16/18 07:19 05/16/18 07:19 General appearance: Present: A&O X 3, pleasant, no acute distress - Head Head exam: Present: atraumatic, normocephalic - Neck Neck exam general surgery: Present: supple, trachea midline. Absent: lymphadenopathy - Respiratory Respiratory exam: Present: decreased breath sounds. Absent: accessory muscle use, rales, rhonchi, wheezes - GI/Abdominal GI/Abdominal exam: Present: hypoactive bowel sounds, soft, no peritoneal signs. Absent: distended - Extremities Exam Extremities exam: Present: warm, radial pulses palpable and symmetrical. Absent : calf tenderness, cyanotic, pedal edema - Skin Skin exam: Present: dry Internal Medicine: Result - Labs CBC & Chem 7: 05/16/18 06:23 05/16/18 06:23 Labs: Short CBC 05/16/18 Range/Units 06:23 WBC 16.3 H (4.3-11.1) K/mcL Hgb 11.6 D (11.5-15.4) g/dL Hct 36.4 (35.3-44.9) % Plt Count 142 (140-400) K/mcL BMP 05/16/18 06:23 Sodium 143 Potassium 3.8 Chloride 112 H Carbon Dioxide 18 L BUN 39 H Creatinine 0.96 Glucose 86 Calcium 8.6 - ABG Interpretation ABG results: PT/INR, D-dimer PT 11.5 Seconds (9.4-12.1) 05/13/18 18:00 - VTE Documentation of Mechanical Device: Intermittent pneumatic compression device Consult Discharge Plan - Plan Referrals: Maxwell Ramos MD [Primary Care Provider] -
--- NOTE | 2018-05-16 11:17 | General Surgery Progress Note ---
Date of Encounter: 05/16/18 Time of Encounter: 11:14 - Assessment and Plan (1) Gastric volvulus Current Visit: Yes Status: Acute 77F POD #2 s/p ex lap, reduction of gastric volvulus, repair of hiatal hernia, gastropexy; neuro: cont pain regimen cardiac: NSR; cont cardizem as needed pulm: IS usage; oxygen as needed GI: PPI; cont NG tube; okay for ice chips : cont NG tube to cont to monitor UOP; ID: no abx needed heme: chemical DVT prophylaxis endo: give levothyroxine IV FEN: NPO, IVF; replete lytes disp: okay for transfer to Subjective Patient reports: no new complaints, other (reports feeling better) Objective Vital Signs - Last 8 Hours Temp Pulse Resp BP Pulse Ox 05/16/18 07:21 67 05/16/18 07:19 98.9 F 67 22 151/69 92 05/16/18 06:07 79 22 93 05/16/18 05:02 73 22 93 05/16/18 04:06 65 21 138/66 93 05/16/18 03:25 98.4 F Intake and Output 05/15/18 05/16/18 05/16/18 23:59 07:59 15:59 Intake Total 265 / 265 1000 / 1000 0 / 0 Output Total 580 / 580 330 / 330 Balance -315 / -315 670 / 670 0 / 0 Intake: IV Fluids 265 / 265 1000 / 1000 0.9 % Sodium Chloride 1,000 ML 1000 / 1000 @ 100 mls/hr IVC .Q10H DEDE Rx#: [id number] Cardizem 50 MG In 0.9 % Sodium 5 / 5 Chloride 40 ML @ 5 MG/HR 5 mls/ hr IVC .Q10H DEDE Rx#:[id number] Potassium Phosphate 44 MEQ In 0 260 / 260 .9 % Sodium Chloride 250 ML @ 40 mls/hr IVPB ONCE ONE Rx#: [id number] Oral 0 / 0 0 / 0 0 / 0 Output: Catheter 200 / 200 275 / 275 Gastric Drainage 350 / 350 50 / 50 Wound Drainage 30 / 30 5 / 5 Lower Abdomen 30 / 30 5 / 5 Other: Stool Size Smear Stool Consistency liquid Stool Color Brown Yellow # Bowel Movements 1 Weight 96.2 kg Blood Glucose* 79 - General physical appearance no distress - Respiratory normal expansion, normal respiratory effort - Cardiovascular Cardiovascular exam: Present: RRR (sinus rhythm) - Abdomen Abdomen: Present: soft, tender (appropriately tender) - Incision Incision: Present: clean and dry, intact - Integumentary no rash - Neurologic CN 2-12 grossly intact - Musculoskeletal normal posture - Psychiatric oriented to time, oriented to person, oriented to place - Labs 05/16/18 06:23 05/16/18 06:23 Diabetes panel 05/16/18 Range/Units 06:23 Sodium 143 (136-145) mEq/L Potassium 3.8 (3.5-5.1) mEq/L Chloride 112 H (98-107) mEq/L Carbon Dioxide 18 L (23-29) mEq/L BUN 39 H (8-23) mg/dL Creatinine 0.96 (0.60-1.20) mg/dL Glucose 86 (70-105) mg/dL Calcium 8.6 (8.6-10.3) mg/dL Calcium panel 05/16/18 Range/Units 06:23 Calcium 8.6 (8.6-10.3) mg/dL Pituitary panel 05/16/18 Range/Units 06:23 Sodium 143 (136-145) mEq/L Potassium 3.8 (3.5-5.1) mEq/L Chloride 112 H (98-107) mEq/L Carbon Dioxide 18 L (23-29) mEq/L BUN 39 H (8-23) mg/dL Creatinine 0.96 (0.60-1.20) mg/dL Glucose 86 (70-105) mg/dL Calcium 8.6 (8.6-10.3) mg/dL Adrenal panel 05/16/18 Range/Units 06:23 Sodium 143 (136-145) mEq/L Potassium 3.8 (3.5-5.1) mEq/L Chloride 112 H (98-107) mEq/L Carbon Dioxide 18 L (23-29) mEq/L BUN 39 H (8-23) mg/dL Creatinine 0.96 (0.60-1.20) mg/dL Glucose 86 (70-105) mg/dL Calcium 8.6 (8.6-10.3) mg/dL - VTE Documentation of Mechanical Device: Intermittent pneumatic compression device Consult Discharge Plan - Plan Referrals: Maxwell Ramos MD [Primary Care Provider] -
[2018-05-16] MEDS: D5% in 0.45% NACL w KCl 20 MEQ/1,000 ML MLS IVC SCH ×2 (11:24→19:21)
[2018-05-16 11:26] LABS: Bilirubin,Urine Small (Negative); Blood,Urine Small (Negative); Clarity,Urine Clear (Clear); Color,Urine Yellow (Yellow); Glucose,Urine (UA) Normal (Normal); Ketones,Urine 80 mg/dL (Negative); Leukocyte Esterase,Urine Negative (Negative); Nitrite,Urine Negative (Negative); Protein,Urine 30 mg/dL (Neg-Trace); Specific Gravity,Urine 1.025 (1.010-1.025); Urobilinogen,Urine Normal (Normal)
[2018-05-16 11:29] LABS: Bacteria,Urine None Seen per hpf (None-Few); Squamous Epithelial Cell,Urine Many per lpf (None-Few)
[2018-05-17] MEDS: D5% in 0.45% NACL w KCl 20 MEQ/1,000 ML MLS IVC SCH ×3 (03:14→21:41)
[2018-05-17] MEDS: Levothyroxine Sodium 100 MCG VIAL IVP SCH (06:37)
[2018-05-17] MEDS: *HR* Heparin 5,000 UNIT/ML VIAL SQ SCH ×3 (06:37→21:40)
[2018-05-17 06:51] LABS: Basophils % 0.3 %; Hematocrit 35.9 % (35.3-44.9); Hemoglobin 11.6 g/dL (11.5-15.4); Immature Granulocytes % 4.5 % (0-4); Lymphocytes % 6.5 %; Mean Corpuscular HGB Conc 32.3 g/dL (31.6-35.5); Mean Corpuscular Hemoglobin 29.9 pg (28.0-33.3); Mean Corpuscular Volume 92.5 fL (83.0-100.0); Mean Platelet Volume 9.7 fL (9.4-12.4); Monocytes # 0.9 K/mcL (0.0-1.3); Platelet Count 148 K/mcL (140-400); Red Blood Count 3.88 M/mcL (3.82-4.97); Red Cell Distribution Width 13.7 % (11.5-14.5); Segmented Neutrophils % 82.7 %
[2018-05-17 06:53] LABS: Basophils # 0.1 K/mcL (0.0-0.2)
[2018-05-17 07:16] LABS: Platelet Estimate Normal (Normal)
[2018-05-17] MEDS: Pantoprazole 40 MG VIAL IVP SCH (07:56)
[2018-05-17 09:08] LABS: BUN/Creatinine Ratio 37 (6-26); Blood Urea Nitrogen 30 mg/dL (8-23); Calcium 8.9 mg/dL (8.6-10.3); Carbon Dioxide 22 mEq/L (23-29); Chloride 113 mEq/L (98-107); Glucose 137 mg/dL (70-105); Osmolality,Calculated 300 (280-300); Sodium 141 mEq/L (136-145); eGFR For African Americans > 60 (> 60); eGFR For Non-African Americans > 60 (> 60)
--- NOTE | 2018-05-17 10:16 | Internal Med Progress Note ---
Date of Encounter: 05/17/18 Time of Encounter: 11:00 - Assessment and plan (1) Gastric volvulus Current Visit: Yes Status: Acute (2) New onset a-fib Current Visit: Yes Status: Resolved (3) DVT prophylaxis Current Visit: Yes Status: Acute (4) Hypertension Current Visit: Yes Status: Acute Qualifiers: Hypertension type: essential hypertension Qualified Code(s): I10 - Essential (primary) hypertension Code(s): I10 - Essential (primary) hypertension SNOMED Code(s): 11167697 (5) Leukocytosis Current Visit: Yes Status: Acute Assessment and plan: Possible secondary to urinary tract infection, with active Levaquin close monitoring patient condition Qualifiers: Leukocytosis type: unspecified Qualified Code(s): D72.829 - Elevated white blood cell count, unspecified (6) Volume depletion Current Visit: Yes Status: Acute (7) Hypophosphatemia Current Visit: Yes Status: Acute Assessment and plan: Replace - Time Spent With Patient Total time spent is greater than 50% in coordination of care (as documented) at patient's floor/unit and/or counseling patient: Greater than 35 minutes - Subjective Interval history: Patient complaining of generalized weakness tiredness, she denies any nausea or vomiting - Constitutional Vitals: Temp Pulse Resp BP Pulse Ox 97.8 F 75 16 139/60 93 05/17/18 07:44 05/17/18 07:44 05/17/18 07:44 05/17/18 07:44 05/17/18 07:44 General appearance: Present: A&O X 3, pleasant, no acute distress - Head Head exam: Present: atraumatic, normocephalic - Neck Neck exam general surgery: Present: supple, trachea midline. Absent: lymphadenopathy - Respiratory Respiratory exam: Present: decreased breath sounds. Absent: accessory muscle use, rales, rhonchi, wheezes - Cardiovascular Cardiovascular exam: Present: RRR, +S1, +S2. Absent: diastolic murmur, gallop, rubs, systolic murmur - GI/Abdominal GI/Abdominal exam: Present: normal bowel sounds, soft, no peritoneal signs - Extremities Exam Extremities exam: Present: warm, radial pulses palpable and symmetrical. Absent : calf tenderness, cyanotic, pedal edema - Neurological Exam Neurological exam: Present: CN II-XII intact, oriented X3, no focal deficits. Absent: pronater drift, facial droop, speech deficit Internal Medicine: Result - Labs CBC & Chem 7: 05/17/18 06:31 05/17/18 08:24 Labs: Short CBC 05/17/18 Range/Units 06:31 WBC 15.7 H (4.3-11.1) K/mcL Hgb 11.6 (11.5-15.4) g/dL Hct 35.9 (35.3-44.9) % Plt Count 148 (140-400) K/mcL Neutrophils # 13.0 H (1.6-8.9) K/mcL BMP 05/17/18 08:24 Sodium 141 Potassium 4.0 Chloride 113 H Carbon Dioxide 22 L BUN 30 H Creatinine 0.82 Glucose 137 H Calcium 8.9 Urine 05/16/18 Range/Units 11:13 Urine Color Yellow (Yellow) Urine Clarity Clear (Clear) Urine pH 6.0 (5.0-8.0) pH Units Ur Specific [place] 1.025 (1.010-1.025) Urine Protein 30 H (Neg-Trace) mg/dL Urine Glucose (UA) Normal (Normal) mg/dL - ABG Interpretation ABG results: PT/INR, D-dimer PT 11.5 Seconds (9.4-12.1) 05/13/18 18:00 - VTE Documentation of Mechanical Device: Intermittent pneumatic compression device Consult Discharge Plan - Plan Referrals: Richard,Maxwell [place] MD [Primary Care Provider] -
--- NOTE | 2018-05-17 11:12 | General Surgery Progress Note ---
<Shai Tsai R - Last Filed: 05/17/18 11:10> Date of Encounter: 05/17/18 Time of Encounter: 09:00 - Assessment and Plan (1) Gastric outlet obstruction Current Visit: Yes Status: Acute POD #3 Exploratory laparotomy with reduction of gastric volvulus, hiatal hernia repair, Jairo fundoplication, Gastropexy with Dr. Price NPO except ice chips NG tube to LIWS - 1350 ml out yesterday IV fluids Continue WILLIAM drain - decreasing 40 ml yesterday Pain control - Dilaudid [employer] PPI therapy daily Incentive spirometer every 1 hour while awake Out of bed to chair BID Ambulate with assistance May discontinue Borrero Replace phosphorus Repeat AM labs - CBC, BMP (2) Atrial fibrillation with rapid ventricular response Current Visit: Yes Status: Acute Management per primary. On Cardizem drip (3) Hyperlipidemia Current Visit: Yes Status: Chronic Hold meds while NPO Qualifiers: Hyperlipidemia type: unspecified Qualified Code(s): E78.5 - Hyperlipidemia , unspecified (4) Hypothyroidism Current Visit: Yes Status: Chronic On IV synthroid while NPO Qualifiers: Hypothyroidism type: unspecified Qualified Code(s): E03.9 - Hypothyroidism , unspecified (5) DVT prophylaxis Current Visit: Yes Status: Acute Heparin TID and SCDs Subjective Patient reports: no new complaints, feels better, still having pain, pain is less, voiding w/o difficulty (borrero in place), flatus, bowel movement, afebrile Objective Vital Signs - Last 8 Hours Temp Pulse Resp BP Pulse Ox 05/17/18 07:44 97.8 F 75 16 139/60 93 05/17/18 04:35 68 16 128/60 93 05/17/18 03:24 65 05/17/18 03:12 97.8 F 66 18 136/71 94 Intake and Output 05/16/18 05/17/18 05/17/18 23:59 07:59 15:59 Intake Total 1000 / 1000 1269 / 1269 Output Total 1425 / 1425 515 / 515 Balance -425 / -425 754 / 754 Intake: IV Fluids 1000 / 1000 1029 / 1029 KCl 20mEq IN D5%-0.45 NACL 20 1000 / 1000 1000 / 1000 meq In 1,000 ml @ 125 mls/hr IVC .Q8H DEDE Rx#:[id number] Cardizem 50 MG In 0.9 % Sodium 29 / 29 Chloride 40 ML @ 5 MG/HR 5 mls/ hr IVC .Q10H DEDE Rx#:[id number] Free Water 240 / 240 Output: Catheter 300 / 300 250 / 250 Gastric Drainage 1100 / 1100 250 / 250 Left Nare 550 / 550 Wound Drainage 15 15 Lower Abdomen Other: Weight 95.8 kg Blood Glucose* 129 Patient Weight 05/17/18 23:59 Weight 95.8 kg - General physical appearance well developed, well nourished, no distress - Eyes normal ocular movement - Respiratory normal expansion, normal respiratory effort, clear to auscultation - Cardiovascular Cardiovascular exam: Present: RRR - Abdomen Abdomen: Present: bowel sounds present, soft, tender (appropriately) - Incision Incision: Present: clean and dry, intact - Integumentary no rash - Neurologic CN 2-12 grossly intact - Psychiatric oriented to time, oriented to person, oriented to place, speech is normal, memory intact - Labs 05/17/18 06:31 05/17/18 08:24 Diabetes panel 05/17/18 Range/Units 08:24 Sodium 141 (136-145) mEq/L Potassium 4.0 (3.5-5.1) mEq/L Chloride 113 H (98-107) mEq/L Carbon Dioxide 22 L (23-29) mEq/L BUN 30 H (8-23) mg/dL Creatinine 0.82 (0.60-1.20) mg/dL Glucose 137 H (70-105) mg/dL Calcium 8.9 (8.6-10.3) mg/dL Calcium panel 05/17/18 Range/Units 08:24 Calcium 8.9 (8.6-10.3) mg/dL Phosphorus 1.0 L* (2.7-4.5) mg/dL Pituitary panel 05/17/18 Range/Units 08:24 Sodium 141 (136-145) mEq/L Potassium 4.0 (3.5-5.1) mEq/L Chloride 113 H (98-107) mEq/L Carbon Dioxide 22 L (23-29) mEq/L BUN 30 H (8-23) mg/dL Creatinine 0.82 (0.60-1.20) mg/dL Glucose 137 H (70-105) mg/dL Calcium 8.9 (8.6-10.3) mg/dL Adrenal panel 05/17/18 Range/Units 08:24 Sodium 141 (136-145) mEq/L Potassium 4.0 (3.5-5.1) mEq/L Chloride 113 H (98-107) mEq/L Carbon Dioxide 22 L (23-29) mEq/L BUN 30 H (8-23) mg/dL Creatinine 0.82 (0.60-1.20) mg/dL Glucose 137 H (70-105) mg/dL Calcium 8.9 (8.6-10.3) mg/dL - VTE Documentation of Mechanical Device: Intermittent pneumatic compression device Consult Discharge Plan - Plan Referrals: Maxwell Ramos MD [Primary Care Provider] - <Shaka Garsia - Last Filed: 05/17/18 12:28> Date of Encounter: 05/17/18 - Assessment and Plan (1) Gastric volvulus Current Visit: Yes Status: Acute Objective Vital Signs - Last 8 Hours Temp Pulse Resp BP Pulse Ox 05/17/18 11:23 98.2 F 72 16 92 05/17/18 07:44 97.8 F 75 16 139/60 93 05/17/18 04:35 68 16 128/60 93 Intake and Output 05/16/18 05/17/18 05/17/18 23:59 07:59 15:59 Intake Total 1000 / 1000 1269 / 1269 Output Total 1425 / 1425 515 / 515 200 / 200 Balance -425 / -425 754 / 754 -200 / -200 Intake: IV Fluids 1000 / 1000 1029 / 1029 KCl 20mEq IN D5%-0.45 NACL 20 1000 / 1000 1000 / 1000 meq In 1,000 ml @ 125 mls/hr IVC .Q8H DEDE Rx#:[id number] Cardizem 50 MG In 0.9 % Sodium 29 / 29 Chloride 40 ML @ 5 MG/HR 5 mls/ hr IVC .Q10H DEDE Rx#:[id number] Free Water 240 / 240 Output: Catheter 300 / 300 250 / 250 200 / 200 Gastric Drainage 1100 / 1100 250 / 250 Left Nare 550 / 550 Wound Drainage Lower Abdomen Other: Weight 95.8 kg Blood Glucose* 129 141 Patient Weight 05/17/18 23:59 Weight 95.8 kg - Labs 05/17/18 06:31 05/17/18 08:24 Diabetes panel 05/17/18 Range/Units 08:24 Sodium 141 (136-145) mEq/L Potassium 4.0 (3.5-5.1) mEq/L Chloride 113 H (98-107) mEq/L Carbon Dioxide 22 L (23-29) mEq/L BUN 30 H (8-23) mg/dL Creatinine 0.82 (0.60-1.20) mg/dL Glucose 137 H (70-105) mg/dL Calcium 8.9 (8.6-10.3) mg/dL Calcium panel 05/17/18 Range/Units 08:24 Calcium 8.9 (8.6-10.3) mg/dL Phosphorus 1.0 L* (2.7-4.5) mg/dL Pituitary panel 05/17/18 Range/Units 08:24 Sodium 141 (136-145) mEq/L Potassium 4.0 (3.5-5.1) mEq/L Chloride 113 H (98-107) mEq/L Carbon Dioxide 22 L (23-29) mEq/L BUN 30 H (8-23) mg/dL Creatinine 0.82 (0.60-1.20) mg/dL Glucose 137 H (70-105) mg/dL Calcium 8.9 (8.6-10.3) mg/dL Adrenal panel 05/17/18 Range/Units 08:24 Sodium 141 (136-145) mEq/L Potassium 4.0 (3.5-5.1) mEq/L Chloride 113 H (98-107) mEq/L Carbon Dioxide 22 L (23-29) mEq/L BUN 30 H (8-23) mg/dL Creatinine 0.82 (0.60-1.20) mg/dL Glucose 137 H (70-105) mg/dL Calcium 8.9 (8.6-10.3) mg/dL - Attending Attestation I have personally seen and examined the patient. I have reviewed pertinent labs , imaging, progress notes, including this one. I agree with the above assessment and plan.
[2018-05-17] MEDS: Levofloxacin 500 MG/100 ML 500 MG/100 ML BAG IVPB SCH (15:58)
--- NOTE | 2018-05-17 20:37 | Electrocardiograph Report ---
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
--- NOTE | 2018-05-17 20:38 | Electrocardiograph Report ---
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
[2018-05-18] MEDS: D5% in 0.45% NACL w KCl 20 MEQ/1,000 ML MLS IVC SCH ×2 (05:14→12:10)
[2018-05-18 06:16] LABS: Hematocrit 33.7 % (35.3-44.9); Hemoglobin 10.9 g/dL (11.5-15.4); Mean Corpuscular HGB Conc 32.3 g/dL (31.6-35.5); Mean Corpuscular Hemoglobin 29.9 pg (28.0-33.3); Mean Corpuscular Volume 92.6 fL (83.0-100.0); Mean Platelet Volume 9.7 fL (9.4-12.4); Platelet Count 141 K/mcL (140-400); Red Blood Count 3.64 M/mcL (3.82-4.97); Red Cell Distribution Width 13.7 % (11.5-14.5)
[2018-05-18] MEDS: Levothyroxine Sodium 100 MCG VIAL IVP SCH (06:33)
[2018-05-18] MEDS: *HR* Heparin 5,000 UNIT/ML VIAL SQ SCH ×2 (06:36→17:09)
[2018-05-18 06:42] LABS: BUN/Creatinine Ratio 28 (6-26); Blood Urea Nitrogen 20 mg/dL (8-23); Calcium 8.4 mg/dL (8.6-10.3); Carbon Dioxide 23 mEq/L (23-29); Chloride 110 mEq/L (98-107); Glucose 136 mg/dL (70-105); Magnesium 1.7 mg/dL (1.6-2.6); Osmolality,Calculated 293 (280-300); Phosphorous 1.6 mg/dL (2.7-4.5); Potassium 3.8 mEq/L (3.5-5.1); Sodium 139 mEq/L (136-145); eGFR For African Americans > 60 (> 60); eGFR For Non-African Americans > 60 (> 60)
[2018-05-18] MEDS ORDERED: Potassium Phosphate 44 MEQ in 0.9 % Sodium Chloride 250 ML IVPB ONE (06:43)
[2018-05-18 06:55] LABS: Monocytes # 0.8 K/mcL (0.0-1.3); Neutrophils # 10.6 K/mcL (1.6-8.9); Platelet Estimate Normal (Normal)
[2018-05-18] MEDS: Pantoprazole 40 MG VIAL IVP SCH (08:14)
[2018-05-18] MEDS: Levofloxacin 500 MG/100 ML 500 MG/100 ML BAG IVPB SCH (08:14)
[2018-05-18] MEDS ORDERED: Lidocaine -MPF 1% 5 ML AMPUL INFILT ONE (10:28)
[2018-05-18] MEDS ORDERED: D5% in Water 1,000 ML IVC PRN (10:32)
[2018-05-18] MEDS ORDERED: *HR* Dextrose 50 % in Water (Syg) 50 ML SYRINGE IVP PRN (10:32)
[2018-05-18] MEDS ORDERED: Dextrose Gel 15 GM/37.5 ML TUBE PO PRN ×2 (10:32)
--- NOTE | 2018-05-18 10:37 | General Surgery Progress Note ---
<Harnett,Day Mayi - Last Filed: 05/18/18 10:35> Date of Encounter: 05/18/18 Time of Encounter: 10:00 - Assessment and Plan (1) Gastric outlet obstruction Current Visit: Yes Status: Acute POD #4 Exploratory laparotomy with reduction of gastric volvulus, hiatal hernia repair, Jairo fundoplication, Gastropexy with Dr. 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 Transition to sublingual oxycodone PPI therapy daily Incentive spirometer every 1 hour while awake Out of bed to chair BID Ambulate with assistance Repeat am labs- CBC, BMP (2) Atrial fibrillation with rapid ventricular response Current Visit: Yes Status: Acute Continue cardizem gtt for management of HR- 2.5mg Patient NPO- must maintain gtt Management per medicine service (3) Hyperlipidemia Current Visit: Yes Status: Chronic Hold PO medications for now Qualifiers: Hyperlipidemia type: unspecified Qualified Code(s): E78.5 - Hyperlipidemia , unspecified (4) Hypothyroidism Current Visit: Yes Status: Chronic Transitioned to IV levothyroxine Qualifiers: Hypothyroidism type: unspecified Qualified Code(s): E03.9 - Hypothyroidism , unspecified (5) Hypertension Current Visit: Yes Status: Acute Controlled at this time Management per medicine service Qualifiers: Hypertension type: essential hypertension Qualified Code(s): I10 - Essential (primary) hypertension (6) DVT prophylaxis Current Visit: Yes Status: Acute Heparin 5000 units SQ twice daily for DVT prophylaxis Ambulate hallways TID with assistance, out of bed to chair BID EPCDs to bilateral lower extrimities for DVT prophylaxis Subjective Patient reports: no new complaints, feels better, still having pain, pain is less, voiding w/o difficulty, flatus, no bowel movement, afebrile, other ( Cardizem gtt at 2.5mg) Objective Vital Signs - Last 8 Hours Temp Pulse Resp BP Pulse Ox 05/18/18 09:18 78 05/18/18 08:40 61 05/18/18 07:59 98.3 F 54 18 140/72 95 05/18/18 04:58 98.1 F 67 17 93 05/18/18 04:16 98.1 F 66 17 130/64 93 Intake and Output 05/17/18 05/18/18 05/18/18 23:59 07:59 15:59 Intake Total 1000 / 1000 1000 / 1000 100 / 100 Output Total 462 / 462 220 / 220 125 / 125 Balance 538 / 538 780 / 780 -25 / -25 Intake: IV Fluids 1000 / 1000 1000 / 1000 100 / 100 KCl 20mEq IN D5%-0.45 NACL 20 1000 / 1000 1000 / 1000 meq In 1,000 ml @ 125 mls/hr IVC .Q8H DEDE Rx#:[id number] Levaquin Premix 500mg/100mL 500 100 / 100 mg In 100 ml @ 100 mls/hr IVPB DAILY DEDE Rx#:[id number] Oral 0 / 0 Output: Urine 300 / 300 125 / 125 Gastric Drainage 150 / 150 200 / 200 0 / 0 Left Nare 200 / 200 0 / 0 Wound Drainage 20 20 0 / 0 Lower Abdomen 20 0 / 0 Other: Meal npo # Voids 1 1 Blood Glucose* 116 121 - General physical appearance well developed, no distress - Eyes normal ocular movement - ENT dry mucosa, atraumatic, normocephalic - Neck Neck exam: trachea midline - Respiratory normal respiratory effort, clear to auscultation, other (diminished bibasilar bases) - Cardiovascular Cardiovascular exam: Present: irregular rhythm (HR- 60's) - Abdomen Abdomen: Present: bowel sounds present (hypoactive), soft, tender (minimal, expected tenderness), wound (NG tube to LIWS with 250ml of drainage noted since midnight; WILLIAM drain with 40ml of serousang. drainage noted since midnight) - Incision Incision: Present: clean and dry, intact - Neurologic CN 2-12 grossly intact - Musculoskeletal other (physical deconditioning noted) - Psychiatric oriented to person, oriented to place, speech is normal - Labs 05/18/18 05:42 05/18/18 05:42 Diabetes panel 05/18/18 Range/Units 05:42 Sodium 139 (136-145) mEq/L Potassium 3.8 (3.5-5.1) mEq/L Chloride 110 H (98-107) mEq/L Carbon Dioxide 23 (23-29) mEq/L BUN 20 (8-23) mg/dL Creatinine 0.71 (0.60-1.20) mg/dL Glucose 136 H (70-105) mg/dL Calcium 8.4 L (8.6-10.3) mg/dL Calcium panel 05/17/18 05/18/18 Range/Units 18:28 05:42 Calcium 8.4 L (8.6-10.3) mg/dL Phosphorus 1.9 L 1.6 L (2.7-4.5) mg/dL Pituitary panel 05/18/18 Range/Units 05:42 Sodium 139 (136-145) mEq/L Potassium 3.8 (3.5-5.1) mEq/L Chloride 110 H (98-107) mEq/L Carbon Dioxide 23 (23-29) mEq/L BUN 20 (8-23) mg/dL Creatinine 0.71 (0.60-1.20) mg/dL Glucose 136 H (70-105) mg/dL Calcium 8.4 L (8.6-10.3) mg/dL Adrenal panel 05/18/18 Range/Units 05:42 Sodium 139 (136-145) mEq/L Potassium 3.8 (3.5-5.1) mEq/L Chloride 110 H (98-107) mEq/L Carbon Dioxide 23 (23-29) mEq/L BUN 20 (8-23) mg/dL Creatinine 0.71 (0.60-1.20) mg/dL Glucose 136 H (70-105) mg/dL Calcium 8.4 L (8.6-10.3) mg/dL - VTE Documentation of Mechanical Device: Intermittent pneumatic compression device Consult Discharge Plan - Plan Referrals: Maxwell Ramos MD [Primary Care Provider] - (PER DR. RAMOS'S OFFICE THE PATIENT HAS TO MAKE THEIR OWN APPOINTMENT) Wiliam Connor CNP [Advanced Practice Nurse] - (OFFICE WILL CALL PATIENT AT HOME WITH FOLLOW UP APPOINTMENT) - Attending Attestation For this encounter, I have reviewed the REGISTERED SAFETY ENGINEER or PA documentation, treatment plan, and medical decision making; and I have had face to face time with this patient. <Shaka Garsia - Last Filed: 05/18/18 11:03> Date of Encounter: 05/18/18 - Assessment and Plan (1) Gastric volvulus Current Visit: Yes Status: Acute Objective Vital Signs - Last 8 Hours Temp Pulse Resp BP Pulse Ox 05/18/18 10:00 64 135/89 05/18/18 09:18 78 05/18/18 09:00 69 116/96 05/18/18 08:40 61 05/18/18 07:59 98.3 F 54 18 140/72 95 05/18/18 04:58 98.1 F 67 17 93 05/18/18 04:16 98.1 F 66 17 130/64 93 Intake and Output 05/17/18 05/18/18 05/18/18 23:59 07:59 15:59 Intake Total 1000 / 1000 1000 / 1000 200 / 200 Output Total 462 / 462 220 / 220 250 / 250 Balance 538 / 538 780 / 780 -50 / -50 Intake: IV Fluids 1000 / 1000 1000 / 1000 200 / 200 KCl 20mEq IN D5%-0.45 NACL 20 1000 / 1000 1000 / 1000 meq In 1,000 ml @ 125 mls/hr IVC .Q8H DEDE Rx#:[id number] Levaquin Premix 500mg/100mL 500 200 / 200 mg In 100 ml @ 100 mls/hr IVPB DAILY DEDE Rx#:[id number] Oral 0 / 0 Output: Urine 300 / 300 250 / 250 Gastric Drainage 150 / 150 200 / 200 0 / 0 Left Nare 200 / 200 0 / 0 Wound Drainage 20 / 20 0 / 0 Lower Abdomen 20 / 20 0 / 0 Other: Meal npo # Voids 1 1 Blood Glucose* 116 121 - Labs 05/18/18 05:42 05/18/18 05:42 Diabetes panel 05/18/18 Range/Units 05:42 Sodium 139 (136-145) mEq/L Potassium 3.8 (3.5-5.1) mEq/L Chloride 110 H (98-107) mEq/L Carbon Dioxide 23 (23-29) mEq/L BUN 20 (8-23) mg/dL Creatinine 0.71 (0.60-1.20) mg/dL Glucose 136 H (70-105) mg/dL Calcium 8.4 L (8.6-10.3) mg/dL Calcium panel 05/17/18 05/18/18 Range/Units 18:28 05:42 Calcium 8.4 L (8.6-10.3) mg/dL Phosphorus 1.9 L 1.6 L (2.7-4.5) mg/dL Pituitary panel 05/18/18 Range/Units 05:42 Sodium 139 (136-145) mEq/L Potassium 3.8 (3.5-5.1) mEq/L Chloride 110 H (98-107) mEq/L Carbon Dioxide 23 (23-29) mEq/L BUN 20 (8-23) mg/dL Creatinine 0.71 (0.60-1.20) mg/dL Glucose 136 H (70-105) mg/dL Calcium 8.4 L (8.6-10.3) mg/dL Adrenal panel 05/18/18 Range/Units 05:42 Sodium 139 (136-145) mEq/L Potassium 3.8 (3.5-5.1) mEq/L Chloride 110 H (98-107) mEq/L Carbon Dioxide 23 (23-29) mEq/L BUN 20 (8-23) mg/dL Creatinine 0.71 (0.60-1.20) mg/dL Glucose 136 H (70-105) mg/dL Calcium 8.4 L (8.6-10.3) mg/dL - Attending Attestation I have personally seen and examined the patient. I have reviewed pertinent labs , imaging, progress notes, including this one. I agree with the above assessment and plan and wish to include the following... 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
[2018-05-18] MEDS ORDERED: D10% in Water 500 ML IVC PRN (10:41)
[2018-05-18] MEDS ORDERED: Insulin LISPRO 300 UNITS/3 ML VIAL SQ SCH (12:00)
[2018-05-18] MEDS ORDERED: Potassium Phosphate 44 MEQ in 0.9 % Sodium Chloride 250 ML IVPB PRN (13:47)
[2018-05-18] MEDS ORDERED: Potassium Chloride 40 MEQ/200 ML BAG IVPB PRN (13:47)
[2018-05-18] MEDS ORDERED: Clinimix E 5%-15% SOLUTION 2,000 ML with MVI, adult with vitamin K 10 ML IVC SCH (17:00)
[2018-05-18] MEDS: Insulin LISPRO 300 UNITS/3 ML VIAL SQ SCH (17:04)
--- NOTE | 2018-05-18 17:52 | Internal Med Progress Note ---
Date of Encounter: 05/18/18 Time of Encounter: 14:25 - Assessment and plan (1) Gastric volvulus Current Visit: Yes Status: Acute (2) New onset a-fib Current Visit: Yes Status: Resolved (3) DVT prophylaxis Current Visit: Yes Status: Acute (4) Hypertension Current Visit: Yes Status: Acute Qualifiers: Hypertension type: essential hypertension Qualified Code(s): I10 - Essential (primary) hypertension Code(s): I10 - Essential (primary) hypertension SNOMED Code(s): 45960887 (5) Leukocytosis Current Visit: Yes Status: Acute Qualifiers: Leukocytosis type: unspecified Qualified Code(s): D72.829 - Elevated white blood cell count, unspecified (6) Volume depletion Current Visit: Yes Status: Acute (7) Hypophosphatemia Current Visit: Yes Status: Acute - Time Spent With Patient Plan Appreciate surgery input agree with starting TPN, phosphorus replacement and magnesium replacement, check phosphorus and magnesium. Protocol discussed with nursing staff about the electrolyte replacement protocol as needed, leukocytosis with her urinary tract infection cannot rule out enteritis add Flagyl and monitor especially with spiking of her leukocytosis . Total time spent is greater than 50% in coordination of care (as documented) at patient's floor/unit and/or counseling patient: 25 - 35 minutes - Subjective Interval history: Patient is feeling tired, generalized weakness, is still continued to have high output from her nasogastric tube phosphorus was low this morning - Constitutional Vitals: Temp Pulse Resp BP Pulse Ox 98.6 F 68 18 135/64 98 05/18/18 16:40 05/18/18 17:00 05/18/18 16:40 05/18/18 17:00 05/18/18 16:40 General appearance: Present: A&O X 3, pleasant, no acute distress - Head Head exam: Present: atraumatic, normocephalic - Neck Neck exam general surgery: Present: supple, trachea midline. Absent: lymphadenopathy - Respiratory Respiratory exam: Present: CTAB. Absent: accessory muscle use, rales, rhonchi, wheezes - Cardiovascular Cardiovascular exam: Present: distant heart sounds, RRR, +S1, +S2. Absent: gallop, rubs, systolic murmur - GI/Abdominal GI/Abdominal exam: Present: hypoactive bowel sounds, soft, no peritoneal signs - Extremities Exam Extremities exam: Present: warm, radial pulses palpable and symmetrical. Absent : calf tenderness, cyanotic, pedal edema Internal Medicine: Result - Labs CBC & Chem 7: 05/18/18 05:42 05/18/18 05:42 Labs: Short CBC 05/18/18 Range/Units 05:42 WBC 14.0 H (4.3-11.1) K/mcL Hgb 10.9 L (11.5-15.4) g/dL Hct 33.7 L (35.3-44.9) % Plt Count 141 (140-400) K/mcL Neutrophils # 10.6 H (1.6-8.9) K/mcL BMP 05/18/18 05:42 Sodium 139 Potassium 3.8 Chloride 110 H Carbon Dioxide 23 BUN 20 Creatinine 0.71 Glucose 136 H Calcium 8.4 L - ABG Interpretation ABG results: PT/INR, D-dimer PT 11.5 Seconds (9.4-12.1) 05/13/18 18:00 - Impressions Impressions Chest/Abdomen X-ray 05/18/18 08:42 IMPRESSION: Status post recent abdominal surgery with hiatal hernia repair. Nonobstructive bowel gas pattern. No evidence for free air. Opacity in the left lung base may represent atelectasis and/or small effusion. D/ / Raul Mancuso / Raul Mancuso Interpreting Provider: Raul Mancuso - VTE Documentation of Mechanical Device: Intermittent pneumatic compression device Consult Discharge Plan - Plan Referrals: Maxwell Ramos MD [Primary Care Provider] - (PER DR. RAMOS'S OFFICE THE PATIENT HAS TO MAKE THEIR OWN APPOINTMENT) Wiliam Connor CNP [Advanced Practice Nurse] - (OFFICE WILL CALL PATIENT AT HOME WITH FOLLOW UP APPOINTMENT)
[2018-05-19] MEDS: MetroNIDAZOLE 500 MG/100 ML 500 MG/100 ML BAG IVPB SCH ×3 (00:12→15:35)
[2018-05-19] MEDS: Insulin LISPRO 300 UNITS/3 ML VIAL SQ SCH ×7 (00:33→22:25)
[2018-05-19] MEDS: Levothyroxine Sodium 100 MCG VIAL IVP SCH (06:33)
[2018-05-19] MEDS: *HR* Heparin 5,000 UNIT/ML VIAL SQ SCH ×2 (06:33→18:49)
[2018-05-19 06:52] LABS: Basophils # 0.2 K/mcL (0.0-0.2); Basophils % 0.9 %; Eosinophils % 0.2 %; Hematocrit 34.5 % (35.3-44.9); Hemoglobin 11.5 g/dL (11.5-15.4); Immature Granulocytes % 11.9 % (0-4); Lymphocytes # 1.6 K/mcL (0.6-4.6); Lymphocytes % 10.1 %; Mean Corpuscular HGB Conc 33.3 g/dL (31.6-35.5); Mean Corpuscular Hemoglobin 29.9 pg (28.0-33.3); Mean Corpuscular Volume 89.8 fL (83.0-100.0); Mean Platelet Volume 9.4 fL (9.4-12.4); Monocytes % 6.4 %; Neutrophils # 11.4 K/mcL (1.6-8.9); Platelet Count 134 K/mcL (140-400); Red Blood Count 3.84 M/mcL (3.82-4.97); Red Cell Distribution Width 13.7 % (11.5-14.5); Segmented Neutrophils % 70.5 %
[2018-05-19 07:09] LABS: BUN/Creatinine Ratio 23 (6-26); Blood Urea Nitrogen 14 mg/dL (8-23); Calcium 8.6 mg/dL (8.6-10.3); Carbon Dioxide 22 mEq/L (23-29); Chloride 103 mEq/L (98-107); Glucose 140 mg/dL (70-105); Osmolality,Calculated 281 (280-300); Phosphorous 3.2 mg/dL (2.7-4.5); Potassium 4.1 mEq/L (3.5-5.1); Sodium 134 mEq/L (136-145); eGFR For African Americans > 60 (> 60); eGFR For Non-African Americans > 60 (> 60)
[2018-05-19 07:37] LABS: Platelet Estimate Normal (Normal)
[2018-05-19 07:38] LABS: Reactive Lymphocytes Present (Not Present)
[2018-05-19] MEDS: D5% in 0.45% NACL w KCl 20 MEQ/1,000 ML MLS IVC SCH ×2 (08:15→14:40)
[2018-05-19] MEDS: Pantoprazole 40 MG VIAL IVP SCH (08:32)
--- NOTE | 2018-05-19 09:26 | Internal Med Progress Note ---
Date of Encounter: 05/19/18 Time of Encounter: 09:20 - Assessment and plan (1) Gastric volvulus Current Visit: Yes Status: Acute Assessment and plan: S/P Exploratory laparotomy with reduction of gastric volvulus hiatal hernia repair Jairo fundoplication Gastropexy. POD #5. Plan for Upper Gi series today and plan to d/c NG tube if no obstruction. Surgery following. Continue TPN (2) New onset a-fib Current Visit: Yes Status: Resolved Assessment and plan: Will continue Cardizem drip today possible change to oral tomorrow if the patient is able to take oral medication awaiting recommendation from surgery team, cardiac echo normal ejection fraction (3) DVT prophylaxis Current Visit: Yes Status: Acute Assessment and plan: Heparin subcutaneous (4) Hypertension Current Visit: Yes Status: Acute Assessment and plan: Controlled Qualifiers: Hypertension type: essential hypertension Qualified Code(s): I10 - Essential (primary) hypertension Code(s): I10 - Essential (primary) hypertension SNOMED Code(s): 37769127 (5) Leukocytosis Current Visit: Yes Status: Acute Assessment and plan: Possible secondary to urinary tract infection, with active Levaquin close monitoring patient condition Qualifiers: Leukocytosis type: unspecified Qualified Code(s): D72.829 - Elevated white blood cell count, unspecified (6) Volume depletion Current Visit: Yes Status: Acute Assessment and plan: Gentle hydration (7) Hypophosphatemia Current Visit: Yes Status: Acute Assessment and plan: Replace - Time Spent With Patient Total time spent is greater than 50% in coordination of care (as documented) at patient's floor/unit and/or counseling patient: - Subjective Interval history: No acute events overnight - Constitutional Vitals: Temp Pulse Resp BP Pulse Ox 97.9 F 70 15 165/89 96 05/19/18 07:12 05/19/18 07:12 05/19/18 07:12 05/19/18 07:12 05/19/18 07:12 General appearance: Present: A&O X 3, pleasant, no acute distress - Head Head exam: Present: atraumatic, normocephalic - Eye Eye exam: Present: PERRL, conjuntiva pink, sclera anicteric Pupils: Present: PERRL - Neck Neck exam general surgery: Present: supple, trachea midline. Absent: lymphadenopathy - Respiratory Respiratory exam: Present: CTAB. Absent: accessory muscle use, rales, rhonchi, wheezes - Cardiovascular Cardiovascular exam: Present: RRR, +S1, +S2. Absent: diastolic murmur, gallop, rubs, systolic murmur Additional comments: irregularly irregular - GI/Abdominal GI/Abdominal exam: Present: normal bowel sounds, soft, no peritoneal signs. Absent: distended, tenderness - Extremities Exam Extremities exam: Present: warm, radial pulses palpable and symmetrical. Absent : calf tenderness, cyanotic, pedal edema - Neurological Exam Neurological exam: Present: CN II-XII intact, oriented X3, no focal deficits. Absent: pronater drift, facial droop, speech deficit - Skin Skin exam: Present: dry, intact Internal Medicine: Result - Labs CBC & Chem 7: 05/19/18 06:35 05/19/18 06:35 Labs: Short CBC 05/19/18 Range/Units 06:35 WBC 16.2 H (4.3-11.1) K/mcL Hgb 11.5 (11.5-15.4) g/dL Hct 34.5 L (35.3-44.9) % Plt Count 134 L (140-400) K/mcL Neutrophils # 11.4 H (1.6-8.9) K/mcL BMP 05/18/18 05/19/18 19:30 06:35 Sodium 134 L Potassium 4.1 4.1 Chloride 103 Carbon Dioxide 22 L BUN 14 Creatinine 0.61 Glucose 140 H Calcium 8.6 - ABG Interpretation ABG results: PT/INR, D-dimer PT 11.5 Seconds (9.4-12.1) 05/13/18 18:00 - Impressions Impressions Chest/Abdomen X-ray 05/18/18 08:42 IMPRESSION: Status post recent abdominal surgery with hiatal hernia repair. Nonobstructive bowel gas pattern. No evidence for free air. Opacity in the left lung base may represent atelectasis and/or small effusion. D/ / Raul Mancuso / Raul Mancuso Interpreting Provider: Raul Mancuso - VTE Documentation of Mechanical Device: Intermittent pneumatic compression device Consult Discharge Plan - Plan Referrals: Maxwell Ramos MD [Primary Care Provider] - (PER DR. RAMOS'S OFFICE THE PATIENT HAS TO MAKE THEIR OWN APPOINTMENT) Wiliam Connor CNP [Advanced Practice Nurse] - (OFFICE WILL CALL PATIENT AT HOME WITH FOLLOW UP APPOINTMENT)
[2018-05-19] MEDS: Levofloxacin 500 MG/100 ML 500 MG/100 ML BAG IVPB SCH (09:49)
--- NOTE | 2018-05-19 10:05 | General Surgery Progress Note ---
<aDy Katz Mayi - Last Filed: 05/19/18 10:02> Date of Encounter: 05/19/18 Time of Encounter: 09:00 - Assessment and Plan (1) Gastric outlet obstruction Current Visit: Yes Status: Acute POD #5 Exploratory laparotomy with reduction of gastric volvulus, hiatal hernia repair, Jairo fundoplication, Gastropexy with Dr. Price Pathology reviewed NPO NG tube to LIWS Complete UGI today and possible removal of NG tube pending results PICC line placement and TPN start- total fluid rate 75ml/hour; may stop MIV when TPN at goal [employer] [place] consult for start and management of TPN IV fluids- stop when TPN at goal rate Continue WILLIAM drain Pain control- sublingual oxycodone PPI therapy daily Incentive spirometer every 1 hour while awake Out of bed to chair BID Ambulate with assistance Repeat am labs- CBC, BMP (2) Atrial fibrillation with rapid ventricular response Current Visit: Yes Status: Acute Continue cardizem gtt for management of HR- 2.5mg Patient NPO- must maintain gtt Management per medicine service (3) Hyperlipidemia Current Visit: Yes Status: Chronic Hold PO medications for now Qualifiers: Hyperlipidemia type: unspecified Qualified Code(s): E78.5 - Hyperlipidemia , unspecified (4) Hypothyroidism Current Visit: Yes Status: Chronic Continue IV levothyroxine while NPO Qualifiers: Hypothyroidism type: unspecified Qualified Code(s): E03.9 - Hypothyroidism , unspecified (5) Hypertension Current Visit: Yes Status: Acute Management per medicine service Qualifiers: Hypertension type: essential hypertension Qualified Code(s): I10 - Essential (primary) hypertension (6) DVT prophylaxis Current Visit: Yes Status: Acute Heparin 5000 units SQ twice daily for DVT prophylaxis Ambulate hallways TID with assistance, out of bed to chair BID EPCDs to bilateral lower extrimities for DVT prophylaxis Subjective Patient reports: no new complaints, still having pain, pain is less, voiding w/ o difficulty, flatus, bowel movement, afebrile Objective Vital Signs - Last 8 Hours Temp Pulse Resp BP Pulse Ox 05/19/18 07:12 97.9 F 70 15 165/89 96 05/19/18 06:10 98.6 F 68 16 168/81 95 05/19/18 03:45 98.6 F 78 16 168/81 95 Intake and Output 05/18/18 05/19/18 05/19/18 23:59 07:59 15:59 Intake Total 250 / 250 150 / 150 0 / 0 Output Total 1435 / 1435 Balance -1185 / -1185 150 / 150 0 / 0 Intake: IV Fluids 250 / 250 150 / 150 KCl 20mEq IN D5%-0.45 NACL 20 250 / 250 meq In 1,000 ml @ 75 mls/hr IVC .[id number] DEDE Rx#:[id number] Cardizem 50 MG In 0.9 % Sodium 50 / 50 Chloride 40 ML @ 5 MG/HR 5 mls/ hr IVC .Q10H DEDE Rx#:[id number] Flagyl Premix 500 MG/100 ML 500 100 / 100 mg In 100 ml @ 100 mls/hr IVPB Q8HR DEDE Rx#:[id number] Oral 0 / 0 Output: Urine 1375 / 1375 Wound Drainage 60 / 60 Lower Abdomen 60 / 60 Other: Meal NPO Stool Size Moderate Stool Consistency loose Stool Characteristics Normal for Patient Stool Color Brown # Urine Diapers 2 Blood Glucose* 165 145 - General physical appearance well developed, no distress - Eyes normal ocular movement - ENT normal mucosa, atraumatic, normocephalic - Neck Neck exam: trachea midline - Respiratory normal respiratory effort, clear to auscultation - Cardiovascular Cardiovascular exam: Present: irregular rhythm (HR controlled) - Abdomen Abdomen: Present: bowel sounds present, soft, tender (minimal, expected post- operative tenderness), wound (NG tube to LIWS with minimal output; WILLIAM drain to bulb suction with serous drainage noted (20 ml noted since midnight)) - Incision Incision: Present: clean and dry, intact - Neurologic CN 2-12 grossly intact - Psychiatric oriented to time, oriented to person, oriented to place, speech is normal, memory intact - Labs 05/19/18 06:35 05/19/18 06:35 Diabetes panel 05/18/18 05/19/18 05/19/18 Range/Units 19:30 06:35 06:35 Sodium 134 L (136-145) mEq/L Potassium 4.1 4.1 (3.5-5.1) mEq/L Chloride 103 (98-107) mEq/L Carbon Dioxide 22 L (23-29) mEq/L BUN 14 (8-23) mg/dL Creatinine 0.61 (0.60-1.20) mg/dL Glucose 140 H (70-105) mg/dL Calcium 8.6 (8.6-10.3) mg/dL Triglycerides 180 H (< 150) mg/dL Calcium panel 05/18/18 05/19/18 05/19/18 Range/Units 19:30 06:35 06:35 Calcium 8.6 (8.6-10.3) mg/dL Phosphorus 2.1 L 3.2 (2.7-4.5) mg/dL Pituitary panel 05/18/18 05/19/18 Range/Units 19:30 06:35 Sodium 134 L (136-145) mEq/L Potassium 4.1 4.1 (3.5-5.1) mEq/L Chloride 103 (98-107) mEq/L Carbon Dioxide 22 L (23-29) mEq/L BUN 14 (8-23) mg/dL Creatinine 0.61 (0.60-1.20) mg/dL Glucose 140 H (70-105) mg/dL Calcium 8.6 (8.6-10.3) mg/dL Adrenal panel 05/18/18 05/19/18 Range/Units 19:30 06:35 Sodium 134 L (136-145) mEq/L Potassium 4.1 4.1 (3.5-5.1) mEq/L Chloride 103 (98-107) mEq/L Carbon Dioxide 22 L (23-29) mEq/L BUN 14 (8-23) mg/dL Creatinine 0.61 (0.60-1.20) mg/dL Glucose 140 H (70-105) mg/dL Calcium 8.6 (8.6-10.3) mg/dL - VTE Documentation of Mechanical Device: Intermittent pneumatic compression device Consult Discharge Plan - Plan Referrals: Maxwell Ramos MD [Primary Care Provider] - (PER DR. RAMOS'S OFFICE THE PATIENT HAS TO MAKE THEIR OWN APPOINTMENT) Wiliam Connor CNP [Advanced Practice Nurse] - (OFFICE WILL CALL PATIENT AT HOME WITH FOLLOW UP APPOINTMENT) - Attending Attestation For this encounter, I have reviewed the APPLICATION ENGINEER or PA documentation, treatment plan, and medical decision making; and I have had face to face time with this patient. <Shaka Garsia - Last Filed: 05/19/18 12:32> Date of Encounter: 05/19/18 - Assessment and Plan (1) Gastric volvulus Current Visit: Yes Status: Acute Objective Vital Signs - Last 8 Hours Temp Pulse Resp BP Pulse Ox 05/19/18 11:05 97.9 F 92 19 144/105 93 05/19/18 07:12 97.9 F 70 15 165/89 96 05/19/18 06:10 98.6 F 68 16 168/81 95 Intake and Output 05/18/18 05/19/18 05/19/18 23:59 07:59 15:59 Intake Total 250 / 250 150 / 150 0 / 0 Output Total 1435 / 1435 220 / 220 Balance -1185 / -1185 150 / 150 -220 / -220 Intake: IV Fluids 250 / 250 150 / 150 KCl 20mEq IN D5%-0.45 NACL 20 250 / 250 meq In 1,000 ml @ 75 mls/hr IVC .[id number] DEDE Rx#:[id number] Cardizem 50 MG In 0.9 % Sodium 50 / 50 Chloride 40 ML @ 5 MG/HR 5 mls/ hr IVC .Q10H DEDE Rx#:[id number] Flagyl Premix 500 MG/100 ML 500 100 / 100 mg In 100 ml @ 100 mls/hr IVPB Q8HR DEDE Rx#:[id number] Oral 0 / 0 Output: Urine 1375 / 1375 220 / 220 Wound Drainage 60 / 60 Lower Abdomen 60 / 60 Other: Meal NPO Stool Size Moderate Moderate Stool Consistency loose liquid Stool Characteristics Normal for Patient Seedy Stool Color Brown Brown # Urine Diapers 2 Blood Glucose* 165 145 107 - Labs 05/19/18 06:35 05/19/18 06:35 Diabetes panel 05/18/18 05/19/18 05/19/18 Range/Units 19:30 06:35 06:35 Sodium 134 L (136-145) mEq/L Potassium 4.1 4.1 (3.5-5.1) mEq/L Chloride 103 (98-107) mEq/L Carbon Dioxide 22 L (23-29) mEq/L BUN 14 (8-23) mg/dL Creatinine 0.61 (0.60-1.20) mg/dL Glucose 140 H (70-105) mg/dL Calcium 8.6 (8.6-10.3) mg/dL Triglycerides 180 H (< 150) mg/dL Calcium panel 05/18/18 05/19/18 05/19/18 Range/Units 19:30 06:35 06:35 Calcium 8.6 (8.6-10.3) mg/dL Phosphorus 2.1 L 3.2 (2.7-4.5) mg/dL 05/19/18 Range/Units 10:49 Calcium (8.6-10.3) mg/dL Phosphorus 2.7 (2.7-4.5) mg/dL Pituitary panel 05/18/18 05/19/18 Range/Units 19:30 06:35 Sodium 134 L (136-145) mEq/L Potassium 4.1 4.1 (3.5-5.1) mEq/L Chloride 103 (98-107) mEq/L Carbon Dioxide 22 L (23-29) mEq/L BUN 14 (8-23) mg/dL Creatinine 0.61 (0.60-1.20) mg/dL Glucose 140 H (70-105) mg/dL Calcium 8.6 (8.6-10.3) mg/dL Adrenal panel 05/18/18 05/19/18 Range/Units 19:30 06:35 Sodium 134 L (136-145) mEq/L Potassium 4.1 4.1 (3.5-5.1) mEq/L Chloride 103 (98-107) mEq/L Carbon Dioxide 22 L (23-29) mEq/L BUN 14 (8-23) mg/dL Creatinine 0.61 (0.60-1.20) mg/dL Glucose 140 H (70-105) mg/dL Calcium 8.6 (8.6-10.3) mg/dL - Attending Attestation patient seen and examined. i have reviewed all labs, imaging, and notes. i agree with the above assessment and plan and wish to add the following... clamped without nausea; abd soft; OOBTC; good UOP; afebrile VSS; NG to suction; if less then 301, then UGI today if no abnormalities, then okay to pull NG tube and begin sips (250ccqshift; non carbonated, non sweetened)
[2018-05-19 11:25] LABS: VBG Ionized Calcium 1.14 mmol/L (1.15-1.35); VBG PH 7.45 pH Units (7.32-7.42)
[2018-05-19] MEDS ORDERED: Clinimix E 5%-15% SOLUTION 2,000 ML with MVI, adult with vitamin K 10 ML IVC SCH (17:00)
[2018-05-20] MEDS: Insulin LISPRO 300 UNITS/3 ML VIAL SQ SCH ×6 (00:03→20:11)
[2018-05-20] MEDS: MetroNIDAZOLE 500 MG/100 ML 500 MG/100 ML BAG IVPB SCH ×3 (00:34→17:53)
[2018-05-20] MEDS: OXYCODONE Oral CONC 10 MG/0.5 ML ORAL.SYG SL PRN ×3 (02:47→17:04)
[2018-05-20 04:48] LABS: Hematocrit 33.5 % (35.3-44.9); Hemoglobin 11.2 g/dL (11.5-15.4); Immature Platelets 2.7 % (1.1-6.1); Mean Corpuscular HGB Conc 33.4 g/dL (31.6-35.5); Mean Corpuscular Hemoglobin 29.9 pg (28.0-33.3); Mean Corpuscular Volume 89.6 fL (83.0-100.0); Mean Platelet Volume 9.6 fL (9.4-12.4); Platelet Count 145 K/mcL (140-400); Red Blood Count 3.74 M/mcL (3.82-4.97); Red Cell Distribution Width 13.6 % (11.5-14.5)
[2018-05-20 05:04] LABS: BUN/Creatinine Ratio 30 (6-26); Blood Urea Nitrogen 18 mg/dL (8-23); Calcium 8.3 mg/dL (8.6-10.3); Carbon Dioxide 23 mEq/L (23-29); Chloride 101 mEq/L (98-107); Glucose 156 mg/dL (70-105); Magnesium 1.8 mg/dL (1.6-2.6); Osmolality,Calculated 277 (280-300); Phosphorous 2.9 mg/dL (2.7-4.5); Potassium 3.9 mEq/L (3.5-5.1); Sodium 131 mEq/L (136-145); eGFR For African Americans > 60 (> 60); eGFR For Non-African Americans > 60 (> 60)
[2018-05-20 06:12] LABS: Eosinophils # 0.4 K/mcL (0.0-0.6); Lymphocytes # 2.5 K/mcL (0.6-4.6); Monocytes # 2.2 K/mcL (0.0-1.3); Neutrophils # 12.9 K/mcL (1.6-8.9)
[2018-05-20 06:13] LABS: Platelet Estimate Normal (Normal)
[2018-05-20] MEDS: *HR* Heparin 5,000 UNIT/ML VIAL SQ SCH (06:39)
[2018-05-20] MEDS: Levothyroxine Sodium 100 MCG VIAL IVP SCH (06:39)
[2018-05-20] MEDS: Levofloxacin 500 MG/100 ML 500 MG/100 ML BAG IVPB SCH (07:54)
[2018-05-20] MEDS: Pantoprazole 40 MG VIAL IVP SCH (07:55)
--- NOTE | 2018-05-20 09:47 | Internal Med Progress Note ---
Date of Encounter: 05/20/18 Time of Encounter: 09:45 - Assessment and plan (1) Gastric volvulus Current Visit: Yes Status: Acute Assessment and plan: S/P Exploratory laparotomy with reduction of gastric volvulus hiatal hernia repair Jairo fundoplication Gastropexy. POD #6. GI series done to rule out obstruction was negative for any obstruction. NG tube has been discontinued. Surgery following. Continue TPN (2) New onset a-fib Current Visit: Yes Status: Resolved Assessment and plan: Will continue Cardizem drip today possible change to oral once patient is off NG tube. Patient will also need to be on anticoagulation. Cardiac echo normal ejection fraction. Plan to transiton to po Cardizem and xarelto (3) DVT prophylaxis Current Visit: Yes Status: Acute Assessment and plan: Heparin subcutaneous (4) Hypertension Current Visit: Yes Status: Acute Assessment and plan: Controlled Qualifiers: Hypertension type: essential hypertension Qualified Code(s): I10 - Essential (primary) hypertension Code(s): I10 - Essential (primary) hypertension SNOMED Code(s): 00949192 (5) Leukocytosis Current Visit: Yes Status: Acute Assessment and plan: Possible secondary to urinary tract infection, with active Levaquin close monitoring patient condition Qualifiers: Leukocytosis type: unspecified Qualified Code(s): D72.829 - Elevated white blood cell count, unspecified (6) Volume depletion Current Visit: Yes Status: Acute Assessment and plan: Gentle hydration (7) Hypophosphatemia Current Visit: Yes Status: Acute Assessment and plan: Replace - Time Spent With Patient Total time spent is greater than 50% in coordination of care (as documented) at patient's floor/unit and/or counseling patient: - Subjective Interval history: No acute events overnight - Constitutional Vitals: Temp Pulse Resp BP Pulse Ox 99.1 F 84 20 133/77 92 05/20/18 07:01 05/20/18 07:01 05/20/18 07:01 05/20/18 07:01 05/20/18 07:01 General appearance: Present: A&O X 3, pleasant, no acute distress - Head Head exam: Present: atraumatic, normocephalic - Eye Eye exam: Present: PERRL, conjuntiva pink, sclera anicteric Pupils: Present: PERRL - Neck Neck exam general surgery: Present: supple, trachea midline. Absent: lymphadenopathy - Respiratory Respiratory exam: Present: CTAB. Absent: accessory muscle use, rales, rhonchi, wheezes - Cardiovascular Cardiovascular exam: Present: RRR, +S1, +S2. Absent: diastolic murmur, gallop, rubs, systolic murmur - GI/Abdominal GI/Abdominal exam: Present: normal bowel sounds, soft, no peritoneal signs. Absent: distended, tenderness - Extremities Exam Extremities exam: Present: warm, radial pulses palpable and symmetrical. Absent : calf tenderness, cyanotic, pedal edema - Neurological Exam Neurological exam: Present: CN II-XII intact, oriented X3, no focal deficits. Absent: pronater drift, facial droop, speech deficit - Skin Skin exam: Present: dry, intact Internal Medicine: Result - Labs CBC & Chem 7: 05/20/18 04:30 05/20/18 04:30 Labs: Short CBC 05/20/18 Range/Units 04:30 WBC 17.9 H (4.3-11.1) K/mcL Hgb 11.2 L (11.5-15.4) g/dL Hct 33.5 L (35.3-44.9) % Plt Count 145 (140-400) K/mcL Neutrophils # 12.9 H (1.6-8.9) K/mcL BMP 05/20/18 04:30 Sodium 131 L Potassium 3.9 Chloride 101 Carbon Dioxide 23 BUN 18 Creatinine 0.60 Glucose 156 H Calcium 8.3 L - ABG Interpretation ABG results: PT/INR, D-dimer PT 11.5 Seconds (9.4-12.1) 05/13/18 18:00 - Impressions Impressions Upper GI Series 05/19/18 09:08 IMPRESSION: No evidence of leak or high-grade obstruction. No reflux is seen. D/ / Brigido Kee MD / Brigido Kee MD Interpreting Provider: Brigido Kee MD - VTE Documentation of Mechanical Device: Intermittent pneumatic compression device Consult Discharge Plan - Plan Referrals: Maxwell Ramos MD [Primary Care Provider] - (PER DR. RAMOS'S OFFICE THE PATIENT HAS TO MAKE THEIR OWN APPOINTMENT) Wiliam Connor, DOUGHNUT ICER MACHINE [Advanced Practice Nurse] - (OFFICE WILL CALL PATIENT AT HOME WITH FOLLOW UP APPOINTMENT)
[2018-05-20] MEDS ORDERED: D10% in Water 500 ML IVC PRN (11:11)
[2018-05-20] MEDS: Ketorolac 15 MG/ML VIAL IVP SCH ×2 (11:44→17:04)
--- NOTE | 2018-05-20 11:49 | General Surgery Progress Note ---
<Day Katz Mayi - Last Filed: 05/20/18 11:47> Date of Encounter: 05/20/18 Time of Encounter: 11:20 - Assessment and Plan (1) Gastric outlet obstruction Current Visit: Yes Status: Acute POD #6 Exploratory laparotomy with reduction of gastric volvulus, hiatal hernia repair, Jairo fundoplication, Gastropexy with Dr. Price Pathology reviewed NG tube removed 05/19/18 Clear liquids- no carbonation Ensure clear TID Complete UGI 05/19/18- no leak or reflux noted TPN at goal rate Heating Engineer consult for start and management of TPN IV fluids- stop when TPN at goal rate Continue WILLIAM drain Check AAS today- increasing WBC count Pain control- sublingual oxycodone PPI therapy daily Incentive spirometer every 1 hour while awake Out of bed to chair BID Ambulate with assistance PT/OT for mobilization Repeat am labs- CBC, BMP (2) Atrial fibrillation with rapid ventricular response Current Visit: Yes Status: Acute Continue cardizem gtt for management of HR- 2.5mg May transition to PO medications Management per medicine service (3) Hyperlipidemia Current Visit: Yes Status: Chronic Hold PO medications for now Qualifiers: Hyperlipidemia type: unspecified Qualified Code(s): E78.5 - Hyperlipidemia , unspecified (4) Hypothyroidism Current Visit: Yes Status: Chronic Continue IV levothyroxine while NPO Qualifiers: Hypothyroidism type: unspecified Qualified Code(s): E03.9 - Hypothyroidism , unspecified (5) Hypertension Current Visit: Yes Status: Acute Management per medicine service Qualifiers: Hypertension type: essential hypertension Qualified Code(s): I10 - Essential (primary) hypertension (6) DVT prophylaxis Current Visit: Yes Status: Acute Heparin 5000 units SQ twice daily for DVT prophylaxis Ambulate hallways TID with assistance, out of bed to chair BID EPCDs to bilateral lower extrimities for DVT prophylaxis Subjective Patient reports: still having pain (LUQ- more intense today), tolerating liquids well (poor appetite), voiding w/o difficulty, flatus, bowel movement ( this morning), afebrile Objective Vital Signs - Last 8 Hours Temp Pulse Resp BP Pulse Ox 05/20/18 10:45 98.1 F 84 19 149/86 94 05/20/18 07:01 99.1 F 84 20 133/77 92 05/20/18 04:11 97.9 F 80 16 92 05/20/18 04:08 97.9 F 80 16 92 Intake and Output 05/19/18 05/20/18 05/20/18 23:59 07:59 15:59 Intake Total 710 / 710 100 / 100 375 / 375 Output Total 190 / 190 220 / 220 Balance 520 / 520 -120 / -120 375 / 375 Intake: IV Fluids 410 / 410 100 / 100 300 / 300 Cardizem 50 MG In 0.9 % Sodium 50 / 50 50 / 50 Chloride 40 ML @ 5 MG/HR 5 mls/ hr IVC .Q10H [facility] Rx#:[id number] Levaquin Premix 500mg/100mL 500 100 / 100 mg In 100 ml @ 100 mls/hr IVPB DAILY [facility] Rx#:[id number] Magnesium Sulfate Premix 2gm/ 50 / 50 50mL 2 gm In 50 ml @ 50 mls/hr IVPB Q6H PRN Rx#:[id number] Flagyl Premix 500 MG/100 ML 500 100 / 100 100 / 100 100 / 100 mg In 100 ml @ 100 mls/hr IVPB Q8HR [facility] Rx#:[id number] Sodium Phosphate 30 MMOL In 0.9 260 / 260 % Sodium Chloride 250 ML @ 42 mls/hr IVPB Q12H PRN Rx#: [id number] Oral 300 / 300 75 / 75 Output: Urine 150 / 150 200 / 200 Wound Drainage 40 / 40 20 / 20 Lower Abdomen 40 / 40 20 / 20 Other: Meal Dinner Breakfast Percent of Meal Consumed 35% Stool Size Moderate Copious Moderate Stool Consistency loose liquid liquid soft Stool Characteristics Seedy Stool Color Brown Brown # Voids 1 # Urine Diapers 1 # Bowel Movements 1 Weight 96.8 kg Blood Glucose* 135 131 141 Patient Weight 05/20/18 23:59 Weight 96.8 kg - General physical appearance well developed, moderate pain (LUQ) - Eyes normal ocular movement - ENT normal mucosa, atraumatic, normocephalic - Neck Neck exam: trachea midline - Respiratory normal respiratory effort, clear to auscultation, other (dimnished bibasilar bases) - Cardiovascular Cardiovascular exam: Present: irregular rhythm - Abdomen Abdomen: Present: bowel sounds present, soft, tender (LUQ), wound (WILLIAM drain to bulb suction with serous drainage noted (30ml noted since midnight)) - Incision Incision: Present: clean and dry, intact - Neurologic CN 2-12 grossly intact - Musculoskeletal other (physical deconditioning) - Psychiatric oriented to time, oriented to person, oriented to place, speech is normal, memory intact - Labs 05/20/18 04:30 05/20/18 04:30 Diabetes panel 05/20/18 Range/Units 04:30 Sodium 131 L (136-145) mEq/L Potassium 3.9 (3.5-5.1) mEq/L Chloride 101 (98-107) mEq/L Carbon Dioxide 23 (23-29) mEq/L BUN 18 (8-23) mg/dL Creatinine 0.60 (0.60-1.20) mg/dL Glucose 156 H (70-105) mg/dL Calcium 8.3 L (8.6-10.3) mg/dL Calcium panel 05/20/18 05/20/18 Range/Units 04:30 04:30 Calcium 8.3 L (8.6-10.3) mg/dL Phosphorus 2.9 (2.7-4.5) mg/dL Pituitary panel 05/20/18 Range/Units 04:30 Sodium 131 L (136-145) mEq/L Potassium 3.9 (3.5-5.1) mEq/L Chloride 101 (98-107) mEq/L Carbon Dioxide 23 (23-29) mEq/L BUN 18 (8-23) mg/dL Creatinine 0.60 (0.60-1.20) mg/dL Glucose 156 H (70-105) mg/dL Calcium 8.3 L (8.6-10.3) mg/dL Adrenal panel 05/20/18 Range/Units 04:30 Sodium 131 L (136-145) mEq/L Potassium 3.9 (3.5-5.1) mEq/L Chloride 101 (98-107) mEq/L Carbon Dioxide 23 (23-29) mEq/L BUN 18 (8-23) mg/dL Creatinine 0.60 (0.60-1.20) mg/dL Glucose 156 H (70-105) mg/dL Calcium 8.3 L (8.6-10.3) mg/dL - VTE Documentation of Mechanical Device: Intermittent pneumatic compression device Consult Discharge Plan - Plan Referrals: Maxwell Ramos MD [Primary Care Provider] - (PER DR. RAMOS'S OFFICE THE PATIENT HAS TO MAKE THEIR OWN APPOINTMENT) Wiliam Connor, MANAGER MSW [Advanced Practice Nurse] - (OFFICE WILL CALL PATIENT AT HOME WITH FOLLOW UP APPOINTMENT) - Attending Attestation For this encounter, I have reviewed the FINANCE PROFESSOR or PA documentation, treatment plan, and medical decision making; and I have had face to face time with this patient. <Shaka Garsia - Last Filed: 05/20/18 19:47> Date of Encounter: 05/20/18 - Assessment and Plan (1) Gastric volvulus Current Visit: Yes Status: Acute Objective Vital Signs - Last 8 Hours Temp Pulse Resp BP Pulse Ox 05/20/18 18:56 98.0 F 80 20 147/78 93 05/20/18 16:47 97.7 F 78 20 147/68 94 Intake and Output 05/20/18 05/20/18 05/20/18 07:59 15:59 23:59 Intake Total 350 / 350 827.5 / 827.5 930 / 930 Output Total 220 / 220 420 / 420 Balance 130 / 130 407.5 / 407.5 930 / 930 Intake: IV Fluids 350 / 350 512.5 / 512.5 930 / 930 Cardizem 50 MG In 0.9 % Sodium 62.5 / 62.5 Chloride 40 ML @ 5 MG/HR 5 mls/ hr IVC .Q10H [facility] Rx#:[id number] Clinimix E 5%-15% SOLUTION 2, 930 / 930 000 ML @ 75 mls/hr IVC .Q24H [facility] with M.v.i. Adult 10 ml Rx# :[id number] Intralipid 20% 250 ML @ 21 mls/ 250 / 250 hr IVPB DAILY@1700 [facility] Rx#: [id number] Levaquin Premix 500mg/100mL 500 100 / 100 mg In 100 ml @ 100 mls/hr IVPB DAILY [facility] Rx#:[id number] Magnesium Sulfate Premix 2gm/ 50 / 50 50mL 2 gm In 50 ml @ 50 mls/hr IVPB Q6H PRN Rx#:[id number] Flagyl Premix 500 MG/100 ML 500 100 / 100 100 / 100 mg In 100 ml @ 100 mls/hr IVPB Q8HR [facility] Rx#:[id number] Potassium Chloride 20 mEq/100 200 / 200 mL 40 meq In 200 ml @ 100 mls/ hr IVPB Q1H PRN Rx#:[id number] Oral 315 / 315 Output: Urine 200 / 200 400 / 400 Wound Drainage Lower Abdomen Other: Meal Breakfast Percent of Meal Consumed 35% Stool Size Copious Moderate Stool Consistency liquid liquid Stool Characteristics Seedy Stool Color Brown Brown # Urine Diapers 1 # Bowel Movements 1 Weight 96.8 kg Blood Glucose* 131 141 145 Patient Weight 05/20/18 23:59 Weight 96.8 kg - Labs 05/20/18 04:30 05/20/18 18:00 Diabetes panel 05/20/18 05/20/18 Range/Units 04:30 18:00 Sodium 131 L 132 L (136-145) mEq/L Potassium 3.9 4.0 (3.5-5.1) mEq/L Chloride 101 (98-107) mEq/L Carbon Dioxide 23 (23-29) mEq/L BUN 18 (8-23) mg/dL Creatinine 0.60 (0.60-1.20) mg/dL Glucose 156 H (70-105) mg/dL Calcium 8.3 L (8.6-10.3) mg/dL Calcium panel 05/20/18 05/20/18 05/20/18 Range/Units 04:30 04:30 18:00 Calcium 8.3 L (8.6-10.3) mg/dL Phosphorus 2.9 3.3 (2.7-4.5) mg/dL Pituitary panel 05/20/18 05/20/18 Range/Units 04:30 18:00 Sodium 131 L 132 L (136-145) mEq/L Potassium 3.9 4.0 (3.5-5.1) mEq/L Chloride 101 (98-107) mEq/L Carbon Dioxide 23 (23-29) mEq/L BUN 18 (8-23) mg/dL Creatinine 0.60 (0.60-1.20) mg/dL Glucose 156 H (70-105) mg/dL Calcium 8.3 L (8.6-10.3) mg/dL Adrenal panel 05/20/18 05/20/18 Range/Units 04:30 18:00 Sodium 131 L 132 L (136-145) mEq/L Potassium 3.9 4.0 (3.5-5.1) mEq/L Chloride 101 (98-107) mEq/L Carbon Dioxide 23 (23-29) mEq/L BUN 18 (8-23) mg/dL Creatinine 0.60 (0.60-1.20) mg/dL Glucose 156 H (70-105) mg/dL Calcium 8.3 L (8.6-10.3) mg/dL - Attending Attestation I have personally seen and examined the patient. I have reviewed pertinent labs , imaging, progress notes, including this one. I agree with the above assessment and plan.
[2018-05-20] MEDS: Diltiazem CD (24hr) 120 MG CAPSULE PO SCH (13:41)
[2018-05-20] MEDS ORDERED: Clinimix E 5%-15% SOLUTION 2,000 ML with MVI, adult with vitamin K 10 ML IVC SCH (17:00)
[2018-05-20] MEDS: Metoclopramide 10 MG/2 ML VIAL IVP SCH (17:04)
[2018-05-20] MEDS: *HR* Rivaroxaban 15 MG TABLET PO SCH (17:04)
[2018-05-20 19:08] LABS: Phosphorous 3.3 mg/dL (2.7-4.5)
[2018-05-21] MEDS: Ketorolac 15 MG/ML VIAL IVP SCH ×2 (00:24→06:30)
[2018-05-21] MEDS: Insulin LISPRO 300 UNITS/3 ML VIAL SQ SCH ×6 (00:24→20:34)
[2018-05-21] MEDS: MetroNIDAZOLE 500 MG/100 ML 500 MG/100 ML BAG IVPB SCH ×3 (00:25→17:07)
[2018-05-21] MEDS: Metoclopramide 10 MG/2 ML VIAL IVP SCH ×4 (00:25→17:07)
[2018-05-21 04:55] LABS: Hematocrit 33.8 % (35.3-44.9); Hemoglobin 10.9 g/dL (11.5-15.4); Mean Corpuscular HGB Conc 32.2 g/dL (31.6-35.5); Mean Corpuscular Hemoglobin 28.9 pg (28.0-33.3); Mean Corpuscular Volume 89.7 fL (83.0-100.0); Mean Platelet Volume 9.6 fL (9.4-12.4); Nucleated Red Blood Cells 0.1 /100 WBC (0); Platelet Count 143 K/mcL (140-400); Red Blood Count 3.77 M/mcL (3.82-4.97); Red Cell Distribution Width 13.9 % (11.5-14.5)
[2018-05-21 05:14] LABS: Phosphorous 3.3 mg/dL (2.7-4.5)
[2018-05-21 05:15] LABS: BUN/Creatinine Ratio 39 (6-26); Blood Urea Nitrogen 30 mg/dL (8-23); Calcium 8.4 mg/dL (8.6-10.3); Carbon Dioxide 24 mEq/L (23-29); Chloride 101 mEq/L (98-107); Glucose 133 mg/dL (70-105); Osmolality,Calculated 278 (280-300); Potassium 4.1 mEq/L (3.5-5.1); Sodium 130 mEq/L (136-145); eGFR For African Americans > 60 (> 60); eGFR For Non-African Americans > 60 (> 60)
[2018-05-21 05:29] LABS: VBG Ionized Calcium 1.12 mmol/L (1.15-1.35); VBG PH 7.47 pH Units (7.32-7.42)
[2018-05-21] MEDS ORDERED: Isovue-370 500 ML INFUS..BTL IV ONE (05:36)
[2018-05-21 05:38] LABS: Lymphocytes # 6.2 K/mcL (0.6-4.6); Monocytes # 2.9 K/mcL (0.0-1.3); Neutrophils # 9.4 K/mcL (1.6-8.9); Platelet Estimate Normal (Normal)
--- NOTE | 2018-05-21 05:41 | General Surgery Progress Note ---
Date of Encounter: 05/21/18 Time of Encounter: 05:38 - Assessment and Plan (1) Gastric volvulus Current Visit: Yes Status: Acute 77F POD 71 s/p ex lap, reduction of gastric volvulus, repair of hiatal hernia, gastropexy; tolerating sips; worsening leukocytosis; afebrile, anorexia plan for CT scan; if no abnormal findings, then okay for full clears pulm toileting; possible her leukocytosis is from atelectasis; cont TPN, sips of clears, PPI; borrero inserted due to urinary retention; monitor UOP no abx needed at present dvt prophylaxis replete lytes; Subjective Patient reports: no new complaints, still having pain, pain is less, tolerating liquids well (just sips; states she doesn't have much of an appetite), flatus, bowel movement, afebrile Objective Vital Signs - Last 8 Hours Temp Pulse Resp BP Pulse Ox 05/21/18 03:51 97.9 F 79 20 124/76 94 05/20/18 23:50 98.5 F 80 19 125/76 94 Intake and Output 05/20/18 05/20/18 05/21/18 15:59 23:59 07:59 Intake Total 827.5 / 827.5 1030 / 1030 Output Total 420 / 420 0 / 0 500 / 500 Balance 407.5 / 407.5 1030 / 1030 -500 / -500 Intake: IV Fluids 512.5 / 512.5 1030 / 1030 Cardizem 50 MG In 0.9 % Sodium 62.5 / 62.5 Chloride 40 ML @ 5 MG/HR 5 mls/ hr IVC .Q10H [facility] Rx#:[id number] Clinimix E 5%-15% SOLUTION 2, 930 / 930 000 ML @ 75 mls/hr IVC .Q24H [facility] with M.v.i. Adult 10 ml Rx# :[id number] Levaquin Premix 500mg/100mL 500 100 / 100 mg In 100 ml @ 100 mls/hr IVPB DAILY [facility] Rx#:[id number] Magnesium Sulfate Premix 2gm/ 50 / 50 50mL 2 gm In 50 ml @ 50 mls/hr IVPB Q6H PRN Rx#:[id number] Flagyl Premix 500 MG/100 ML 500 100 / 100 100 / 100 mg In 100 ml @ 100 mls/hr IVPB Q8HR [facility] Rx#:[id number] Potassium Chloride 20 mEq/100 200 / 200 mL 40 meq In 200 ml @ 100 mls/ hr IVPB Q1H PRN Rx#:[id number] Oral 315 / 315 Output: Urine 400 / 400 Catheter 500 / 500 Urethral (Borrero) 500 / 500 Wound Drainage 20 / 20 0 / 0 0 / 0 Lower Abdomen 20 / 20 0 / 0 0 / 0 Other: Meal Breakfast Percent of Meal Consumed 35% Stool Size Moderate Stool Consistency liquid Stool Color Brown Weight 94.6 kg Blood Glucose* 141 164 148 Patient Weight 05/21/18 23:59 Weight 94.6 kg - General physical appearance no distress - Respiratory normal expansion, normal respiratory effort - Cardiovascular Cardiovascular exam: Present: RRR - Abdomen Abdomen: Present: soft, tender (appropriately tender, mildly distended; normal size per patient) - Incision Incision: Present: clean and dry, intact - Neurologic CN 2-12 grossly intact - Musculoskeletal normal posture - Labs 05/21/18 04:35 05/21/18 04:35 Diabetes panel 05/20/18 05/21/18 Range/Units 18:00 04:35 Sodium 132 L 130 L (136-145) mEq/L Potassium 4.0 4.1 (3.5-5.1) mEq/L Chloride 101 (98-107) mEq/L Carbon Dioxide 24 (23-29) mEq/L BUN 30 H (8-23) mg/dL Creatinine 0.76 (0.60-1.20) mg/dL Glucose 133 H (70-105) mg/dL Calcium 8.4 L (8.6-10.3) mg/dL Calcium panel 05/20/18 05/21/18 05/21/18 Range/Units 18:00 04:35 04:35 Calcium 8.4 L (8.6-10.3) mg/dL Phosphorus 3.3 3.3 (2.7-4.5) mg/dL Pituitary panel 05/20/18 05/21/18 Range/Units 18:00 04:35 Sodium 132 L 130 L (136-145) mEq/L Potassium 4.0 4.1 (3.5-5.1) mEq/L Chloride 101 (98-107) mEq/L Carbon Dioxide 24 (23-29) mEq/L BUN 30 H (8-23) mg/dL Creatinine 0.76 (0.60-1.20) mg/dL Glucose 133 H (70-105) mg/dL Calcium 8.4 L (8.6-10.3) mg/dL Adrenal panel 05/20/18 05/21/18 Range/Units 18:00 04:35 Sodium 132 L 130 L (136-145) mEq/L Potassium 4.0 4.1 (3.5-5.1) mEq/L Chloride 101 (98-107) mEq/L Carbon Dioxide 24 (23-29) mEq/L BUN 30 H (8-23) mg/dL Creatinine 0.76 (0.60-1.20) mg/dL Glucose 133 H (70-105) mg/dL Calcium 8.4 L (8.6-10.3) mg/dL - VTE Documentation of Mechanical Device: Intermittent pneumatic compression device Consult Discharge Plan - Plan Referrals: Maxwell Ramos MD [Primary Care Provider] - (PER DR. RAMOS'S OFFICE THE PATIENT HAS TO MAKE THEIR OWN APPOINTMENT) Wilaim Connor CNP [Advanced Practice Nurse] - (OFFICE WILL CALL PATIENT AT HOME WITH FOLLOW UP APPOINTMENT)
[2018-05-21] MEDS: Levothyroxine Sodium 100 MCG VIAL IVP SCH (06:30)
[2018-05-21] MEDS: Diltiazem CD (24hr) 120 MG CAPSULE PO SCH (07:58)
[2018-05-21] MEDS: Pantoprazole 40 MG VIAL IVP SCH (07:58)
[2018-05-21] MEDS: Levofloxacin 500 MG/100 ML 500 MG/100 ML BAG IVPB SCH (07:59)
--- NOTE | 2018-05-21 10:18 | Internal Med Progress Note ---
Date of Encounter: 05/21/18 Time of Encounter: 10:15 - Assessment and plan (1) Gastric volvulus Current Visit: Yes Status: Acute Assessment and plan: S/P Exploratory laparotomy with reduction of gastric volvulus hiatal hernia repair Jairo fundoplication Gastropexy. POD #7. GI series done to rule out obstruction was negative for any obstruction. NG tube has been discontinued. Surgery following. Continue TPN. F/U CT abdomen (2) New onset a-fib Current Visit: Yes Status: Resolved Assessment and plan: Cardiac echo normal ejection fraction. Has been transitioned to po Cardizem and xarelto (3) Leukocytosis Current Visit: Yes Status: Acute Assessment and plan: Possibly secondary to atelectasis/pneumonia. Has been on levaquin on flagyl. F/ U blood cultures and urinalysis Qualifiers: Leukocytosis type: unspecified Qualified Code(s): D72.829 - Elevated white blood cell count, unspecified (4) DVT prophylaxis Current Visit: Yes Status: Acute Assessment and plan: Heparin subcutaneous (5) Hypertension Current Visit: Yes Status: Acute Assessment and plan: Controlled Qualifiers: Hypertension type: essential hypertension Qualified Code(s): I10 - Essential (primary) hypertension Code(s): I10 - Essential (primary) hypertension SNOMED Code(s): 40104703 (6) Volume depletion Current Visit: Yes Status: Acute Assessment and plan: Gentle hydration (7) Hypophosphatemia Current Visit: Yes Status: Acute Assessment and plan: Replaced - Time Spent With Patient Total time spent is greater than 50% in coordination of care (as documented) at patient's floor/unit and/or counseling patient: - Subjective Interval history: No acute events overnight - Constitutional Vitals: Temp Pulse Resp BP Pulse Ox 97.5 F L 68 19 127/67 94 05/21/18 07:33 05/21/18 08:32 05/21/18 07:33 05/21/18 07:33 05/21/18 07:33 General appearance: Present: A&O X 3, pleasant, no acute distress - Head Head exam: Present: atraumatic, normocephalic - Eye Eye exam: Present: PERRL, conjuntiva pink, sclera anicteric Pupils: Present: PERRL - Neck Neck exam general surgery: Present: supple, trachea midline. Absent: lymphadenopathy - Respiratory Respiratory exam: Present: CTAB. Absent: accessory muscle use, rales, rhonchi, wheezes - Cardiovascular Cardiovascular exam: Present: RRR, +S1, +S2. Absent: diastolic murmur, gallop, rubs, systolic murmur - GI/Abdominal GI/Abdominal exam: Present: normal bowel sounds, soft, no peritoneal signs. Absent: distended, tenderness - Extremities Exam Extremities exam: Present: warm, radial pulses palpable and symmetrical. Absent : calf tenderness, cyanotic, pedal edema - Neurological Exam Neurological exam: Present: CN II-XII intact, oriented X3, no focal deficits. Absent: pronater drift, facial droop, speech deficit - Skin Skin exam: Present: dry, intact Internal Medicine: Result - Labs CBC & Chem 7: 05/21/18 04:35 05/21/18 04:35 Labs: Short CBC 05/21/18 Range/Units 04:35 WBC 20.5 H (4.3-11.1) K/mcL Hgb 10.9 L (11.5-15.4) g/dL Hct 33.8 L (35.3-44.9) % Plt Count 143 (140-400) K/mcL Neutrophils # 9.4 H (1.6-8.9) K/mcL BMP 05/20/18 05/21/18 18:00 04:35 Sodium 132 L 130 L Potassium 4.0 4.1 Chloride 101 Carbon Dioxide 24 BUN 30 H Creatinine 0.76 Glucose 133 H Calcium 8.4 L - ABG Interpretation ABG results: PT/INR, D-dimer PT 11.5 Seconds (9.4-12.1) 05/13/18 18:00 - Impressions Impressions Chest/Abdomen X-ray 05/20/18 11:50 IMPRESSION: 1. Again noted is a distended stomach with an air-fluid level. There is also gas scattered throughout the mildly dilated colon and small bowel likely reflecting ileus. 2. No free air on the upright images. 3. Small to moderate left pleural effusion with adjacent atelectasis. Right mid lung atelectasis is also noted. D/ / 05/20/2018 12:51:39 Arabella Day MD / noni Interpreting Provider: Arabella Day MD - VTE Documentation of Mechanical Device: Intermittent pneumatic compression device Consult Discharge Plan - Plan Referrals: Maxwell Ramos MD [Primary Care Provider] - (PER DR. RAMOS'S OFFICE THE PATIENT HAS TO MAKE THEIR OWN APPOINTMENT) Wiliam Connor, HARESH [Advanced Practice Nurse] - (OFFICE WILL CALL PATIENT AT HOME WITH FOLLOW UP APPOINTMENT)
[2018-05-21 12:33] LABS: Bilirubin,Urine Negative (Negative); Blood,Urine Trace (Negative); Clarity,Urine Clear (Clear); Color,Urine Dark Yellow (Yellow); Glucose,Urine (UA) Normal (Normal); Ketones,Urine Negative (Negative); Leukocyte Esterase,Urine Negative (Negative); Nitrite,Urine Negative (Negative); PH,Urine 5.5 pH Units (5.0-8.0); Protein,Urine Negative (Neg-Trace); Specific Gravity,Urine > 1.030 (1.010-1.025); Urobilinogen,Urine Normal (Normal)
[2018-05-21 12:34] LABS: Bacteria,Urine None Seen per hpf (None-Few); Hyaline Casts,Urine None Seen per lpf (None-Few); RBC,Urine 15-30 per hpf (0-3); Squamous Epithelial Cell,Urine Moderate per lpf (None-Few); WBC,Urine 0-3 per hpf (0-3)
[2018-05-21] MEDS: OXYCODONE Oral CONC 10 MG/0.5 ML ORAL.SYG SL PRN ×2 (15:51→20:35)
[2018-05-21] MEDS ORDERED: Clinimix E 5%-15% SOLUTION 2,000 ML with MVI, adult with vitamin K 10 ML IVC SCH (17:00)
[2018-05-21] MEDS: *HR* Rivaroxaban 15 MG TABLET PO SCH (17:07)
[2018-05-22] MEDS: OXYCODONE Oral CONC 10 MG/0.5 ML ORAL.SYG SL PRN ×4 (01:02→20:58)
[2018-05-22] MEDS: MetroNIDAZOLE 500 MG/100 ML 500 MG/100 ML BAG IVPB SCH ×3 (01:03→15:23)
[2018-05-22] MEDS: Metoclopramide 10 MG/2 ML VIAL IVP SCH ×4 (01:03→16:52)
[2018-05-22] MEDS: Insulin LISPRO 300 UNITS/3 ML VIAL SQ SCH ×6 (01:04→21:04)
[2018-05-22 04:19] LABS: VBG Ionized Calcium 1.13 mmol/L (1.15-1.35)
[2018-05-22 04:21] LABS: Hematocrit 34.1 % (35.3-44.9); Mean Corpuscular HGB Conc 32.3 g/dL (31.6-35.5); Mean Corpuscular Hemoglobin 29.2 pg (28.0-33.3); Mean Corpuscular Volume 90.5 fL (83.0-100.0); Mean Platelet Volume 9.7 fL (9.4-12.4); Platelet Count 161 K/mcL (140-400); Red Blood Count 3.77 M/mcL (3.82-4.97); Red Cell Distribution Width 14.2 % (11.5-14.5)
[2018-05-22 04:29] LABS: BUN/Creatinine Ratio 44 (6-26); Blood Urea Nitrogen 40 mg/dL (8-23); Calcium 8.6 mg/dL (8.6-10.3); Carbon Dioxide 21 mEq/L (23-29); Chloride 99 mEq/L (98-107); Glucose 150 mg/dL (70-105); Magnesium 2.1 mg/dL (1.6-2.6); Osmolality,Calculated 275 (280-300); Phosphorous 3.2 mg/dL (2.7-4.5); Potassium 4.2 mEq/L (3.5-5.1); Sodium 126 mEq/L (136-145); eGFR For African Americans > 60 (> 60); eGFR For Non-African Americans > 60 (> 60)
[2018-05-22 04:56] LABS: Lymphocytes # 4.2 K/mcL (0.6-4.6); Neutrophils # 18.5 K/mcL (1.6-8.9); Platelet Estimate Normal (Normal)
[2018-05-22] MEDS: Levothyroxine Sodium 100 MCG VIAL IVP SCH (05:46)
[2018-05-22] MEDS: Pantoprazole 40 MG VIAL IVP SCH (09:36)
[2018-05-22] MEDS: Diltiazem CD (24hr) 120 MG CAPSULE PO SCH (09:36)
[2018-05-22] MEDS: Levofloxacin 750 MG/150 ML 750 MG/150 ML BAG IVPB SCH (09:37)
[2018-05-22] MEDS: Acetaminophen 325 MG TABLET PO PRN ×2 (09:54→16:28)
--- NOTE | 2018-05-22 11:51 | Internal Med Progress Note ---
Date of Encounter: 05/22/18 Time of Encounter: 11:45 - Assessment and plan (1) Gastric volvulus Current Visit: Yes Status: Acute Assessment and plan: S/P Exploratory laparotomy with reduction of gastric volvulus hiatal hernia repair Jairo fundoplication Gastropexy. POD #8. GI series done to rule out obstruction was negative for any obstruction. NG tube has been discontinued. Surgery following. Continue TPN. CT abdomen showed moderate to large left pleural effusion (2) New onset a-fib Current Visit: Yes Status: Resolved Assessment and plan: Cardiac echo normal ejection fraction. Has been transitioned to po Cardizem and xarelto (3) Leukocytosis Current Visit: Yes Status: Acute Assessment and plan: Worsening leukocytosis. Possibly secondary to pneumonia with left pleural effusion.Continue on levaquin and flagyl. F/U blood cultures and urinalysis. Plan for left sided thoracentesis with pleural fluid studies. Echo showed EF of 60% Qualifiers: Leukocytosis type: unspecified Qualified Code(s): D72.829 - Elevated white blood cell count, unspecified (4) Pneumonia Current Visit: Yes Status: Acute Assessment and plan: Leukocytosis with pneumonia. CT showed large left pleural effusion. For IR drainage today Qualifiers: Laterality: left Lung location: lower lobe of lung Qualified Code(s): J18.1 - Lobar pneumonia, unspecified organism (5) DVT prophylaxis Current Visit: Yes Status: Acute Assessment and plan: Heparin subcutaneous (6) Hypertension Current Visit: Yes Status: Acute Assessment and plan: Controlled Qualifiers: Hypertension type: essential hypertension Qualified Code(s): I10 - Essential (primary) hypertension Code(s): I10 - Essential (primary) hypertension SNOMED Code(s): 82952053 (7) Volume depletion Current Visit: Yes Status: Acute Assessment and plan: Gentle hydration (8) Hypophosphatemia Current Visit: Yes Status: Acute Code(s): E83.39 - Other disorders of phosphorus metabolism (9) Hyponatremia Current Visit: Yes Status: Acute Assessment and plan: Started on sodium tablets. Want to avoid more fluids due to the fact that she's on TPN and has a pleural effusion - Time Spent With Patient Total time spent is greater than 50% in coordination of care (as documented) at patient's floor/unit and/or counseling patient: - Subjective Interval history: No acute events overnight - Constitutional Vitals: Temp Pulse Resp BP Pulse Ox 98.1 F 93 18 147/68 92 05/22/18 11:02 05/22/18 11:02 05/22/18 11:02 05/22/18 11:02 05/22/18 11:02 General appearance: Present: A&O X 3, pleasant, no acute distress - Head Head exam: Present: atraumatic, normocephalic - Eye Eye exam: Present: PERRL, conjuntiva pink, sclera anicteric Pupils: Present: PERRL - Neck Neck exam general surgery: Present: supple, trachea midline. Absent: lymphadenopathy - Respiratory Respiratory exam: Present: CTAB. Absent: accessory muscle use, rales, rhonchi, wheezes - Cardiovascular Cardiovascular exam: Present: RRR, +S1, +S2. Absent: diastolic murmur, gallop, rubs, systolic murmur - GI/Abdominal GI/Abdominal exam: Present: normal bowel sounds, soft, no peritoneal signs. Absent: distended, tenderness - Extremities Exam Extremities exam: Present: warm, radial pulses palpable and symmetrical. Absent : calf tenderness, cyanotic, pedal edema - Neurological Exam Neurological exam: Present: CN II-XII intact, oriented X3, no focal deficits. Absent: pronater drift, facial droop, speech deficit - Skin Skin exam: Present: dry, intact Internal Medicine: Result - Labs CBC & Chem 7: 05/22/18 03:50 05/22/18 03:50 Labs: Short CBC 05/22/18 Range/Units 03:50 WBC 23.1 H (4.3-11.1) K/mcL Hgb 11.0 L (11.5-15.4) g/dL Hct 34.1 L (35.3-44.9) % Plt Count 161 (140-400) K/mcL Neutrophils # 18.5 H (1.6-8.9) K/mcL BMP 05/22/18 03:50 Sodium 126 L Potassium 4.2 Chloride 99 Carbon Dioxide 21 L BUN 40 H Creatinine 0.90 Glucose 150 H Calcium 8.6 Urine 05/21/18 Range/Units 12:10 Urine Color Dark Yellow (Yellow) Urine Clarity Clear (Clear) Urine pH 5.5 (5.0-8.0) pH Units Ur Specific [place] > 1.030 H (1.010-1.025) Urine Protein Negative (Neg-Trace) mg/dL Urine Glucose (UA) Normal (Normal) mg/dL - ABG Interpretation ABG results: PT/INR, D-dimer PT 11.5 Seconds (9.4-12.1) 05/13/18 18:00 - VTE Documentation of Mechanical Device: Intermittent pneumatic compression device Consult Discharge Plan - Plan Referrals: Maxwell Ramos MD [Primary Care Provider] - (PER DR. RAMOS'S OFFICE THE PATIENT HAS TO MAKE THEIR OWN APPOINTMENT) Wiliam Connor CNP [Advanced Practice Nurse] - (OFFICE WILL CALL PATIENT AT HOME WITH FOLLOW UP APPOINTMENT)
--- NOTE | 2018-05-22 14:19 | IR Procedure Note ---
Date of procedure: 05/22/18 Consent Obtained: Written consent Timeout: Correct patient and procedure verified, Correct site verified, Time out performed, Skin prep completed Local anesthetic: Lidocaine 1% Indications: Left pleural effusion Procedure Performed: Left thoracentesis Was there an web press operator assistant present: No Site/Technique: Left chest Results/Findings: Thoracentesis of left chest, ronald colored fluid obtained. Small volume. Estimated blood loss (cc): 1 Complications: None; Tolerated procedure well Post Procedure Treatment Plan: Monitoring in pts room Specimen: To be sent to lab.
--- NOTE | 2018-05-22 15:46 | General Surgery Progress Note ---
<Tabby Jimenez - Last Filed: 05/22/18 15:44> Date of Encounter: 05/22/18 Time of Encounter: 15:44 - Assessment and Plan (1) Gastric volvulus Current Visit: Yes Status: Acute POD #8 Exploratory laparotomy with reduction of gastric volvulus, hiatal hernia repair, Jairo fundoplication, Gastropexy with Dr. Price Pathology reviewed; Complete UGI 05/19/18- no leak or reflux noted; Ct 05/21 no acute abd pathology NG tube removed 05/19/18 Plan: limited Clear liquids- no carbonation (will need to remain on clears until directed by surgery); consider full tray of clears beginning 05/23/2018 Ensure clear TID Continue TPN at goal rate until adequate caloric intake Continue WILLIAM drain continue supportive care and discomfort management PPI therapy daily Incentive spirometer every 1 hour while awake Out of bed to chair BID Ambulate with assistance noted leukocytosis and likely pulmonary etiology. s/p thoracentesis with small amount of straw colored fluid returned. ATBX per primary team (2) Pleural effusion Current Visit: Yes Status: Acute see above (3) Atrial fibrillation with controlled ventricular rate Current Visit: Yes Status: Acute per primary team Subjective Patient reports: no new complaints, still having pain (low back), flatus, bowel movement (small) Narrative: denies appetite. states abdominal pain is controlled. denies feeling bloated. Objective Vital Signs - Last 8 Hours Temp Pulse Resp BP Pulse Ox 05/22/18 15:18 98.2 F 88 16 136/79 96 05/22/18 14:47 98.1 F 91 18 141/67 95 05/22/18 11:02 98.1 F 93 18 147/68 92 Intake and Output 05/21/18 05/22/18 05/22/18 23:59 07:59 15:59 Intake Total 100 / 100 100 / 100 220 / 220 Output Total 250 / 250 300 / 300 100 / 100 Balance -150 / -150 -200 / -200 120 / 120 Intake: IV Fluids 100 / 100 100 / 100 100 / 100 Flagyl Premix 500 MG/100 ML 500 100 / 100 100 / 100 100 / 100 mg In 100 ml @ 100 mls/hr IVPB Q8HR [facility] Rx#:[id number] Oral 120 / 120 Output: Catheter 250 / 250 300 / 300 75 / 75 Wound Drainage 25 / 25 Lower Abdomen Other: Meal NPO Lunch Percent of Meal Consumed 0% 0% Stool Size Small Stool Consistency soft Stool Color Brown Weight 95.4 kg Blood Glucose* 187 168 126 Patient Weight 05/22/18 23:59 Weight 95.4 kg - General physical appearance no distress, other - ENT atraumatic, normocephalic - Neck Neck exam: trachea midline - Respiratory other (decreased) - Cardiovascular Cardiovascular exam: Present: irregular rhythm - Abdomen Abdomen: Present: bowel sounds present, soft, tender (expected postoperative) Hernia: none - Neurologic normal coordination, normal sensation - Musculoskeletal normal posture - Psychiatric oriented to time, oriented to person, oriented to place, speech is normal - Labs 05/22/18 03:50 05/22/18 03:50 Diabetes panel 05/22/18 Range/Units 03:50 Sodium 126 L (136-145) mEq/L Potassium 4.2 (3.5-5.1) mEq/L Chloride 99 (98-107) mEq/L Carbon Dioxide 21 L (23-29) mEq/L BUN 40 H (8-23) mg/dL Creatinine 0.90 (0.60-1.20) mg/dL Glucose 150 H (70-105) mg/dL Calcium 8.6 (8.6-10.3) mg/dL Calcium panel 05/22/18 Range/Units 03:50 Calcium 8.6 (8.6-10.3) mg/dL Phosphorus 3.2 (2.7-4.5) mg/dL Pituitary panel 05/22/18 Range/Units 03:50 Sodium 126 L (136-145) mEq/L Potassium 4.2 (3.5-5.1) mEq/L Chloride 99 (98-107) mEq/L Carbon Dioxide 21 L (23-29) mEq/L BUN 40 H (8-23) mg/dL Creatinine 0.90 (0.60-1.20) mg/dL Glucose 150 H (70-105) mg/dL Calcium 8.6 (8.6-10.3) mg/dL Adrenal panel 05/22/18 Range/Units 03:50 Sodium 126 L (136-145) mEq/L Potassium 4.2 (3.5-5.1) mEq/L Chloride 99 (98-107) mEq/L Carbon Dioxide 21 L (23-29) mEq/L BUN 40 H (8-23) mg/dL Creatinine 0.90 (0.60-1.20) mg/dL Glucose 150 H (70-105) mg/dL Calcium 8.6 (8.6-10.3) mg/dL - VTE Documentation of Mechanical Device: Intermittent pneumatic compression device Consult Discharge Plan - Plan Referrals: Maxwell Ramos MD [Primary Care Provider] - (PER DR. RAMOS'S OFFICE THE PATIENT HAS TO MAKE THEIR OWN APPOINTMENT) Wiliam Connor PSYCHIATRIC MENTAL HEALTH NURSE [Advanced Practice Nurse] - (OFFICE WILL CALL PATIENT AT HOME WITH FOLLOW UP APPOINTMENT) <Shaka Garsia - Last Filed: 05/22/18 17:36> Date of Encounter: 05/22/18 - Assessment and Plan (1) Gastric volvulus Current Visit: Yes Status: Acute Objective Vital Signs - Last 8 Hours Temp Pulse Resp BP Pulse Ox 05/22/18 15:18 98.2 F 88 16 136/79 96 05/22/18 14:47 98.1 F 91 18 141/67 95 05/22/18 11:02 98.1 F 93 18 147/68 92 Intake and Output 05/22/18 05/22/18 05/22/18 07:59 15:59 23:59 Intake Total 350 / 350 220 / 220 2009 Output Total 300 / 300 100 / 100 Balance 50 / 50 120 / 120 2009 Intake: IV Fluids 350 / 350 100 / 100 2009 Clinimix E 5%-15% SOLUTION 2, 2009 000 ML @ 83.3 mls/hr IVC .Q24H [facility] with M.v.i. Adult 10 ml Rx# :[id number] Intralipid 20% 250 ML @ 21 mls/ 250 / 250 hr IVPB DAILY@1700 [facility] Rx#: [id number] Flagyl Premix 500 MG/100 ML 500 100 / 100 100 / 100 mg In 100 ml @ 100 mls/hr IVPB Q8HR [facility] Rx#:[id number] Oral 120 / 120 Output: Catheter 300 / 300 75 / 75 Wound Drainage 25 / 25 Lower Abdomen 25 / 25 Other: Meal Lunch Percent of Meal Consumed 0% Stool Size Small Stool Consistency soft Stool Color Brown Weight 95.4 kg Blood Glucose* 168 126 Patient Weight 05/22/18 23:59 Weight 95.4 kg - Labs 05/22/18 03:50 05/22/18 03:50 Diabetes panel 05/22/18 Range/Units 03:50 Sodium 126 L (136-145) mEq/L Potassium 4.2 (3.5-5.1) mEq/L Chloride 99 (98-107) mEq/L Carbon Dioxide 21 L (23-29) mEq/L BUN 40 H (8-23) mg/dL Creatinine 0.90 (0.60-1.20) mg/dL Glucose 150 H (70-105) mg/dL Calcium 8.6 (8.6-10.3) mg/dL Calcium panel 05/22/18 Range/Units 03:50 Calcium 8.6 (8.6-10.3) mg/dL Phosphorus 3.2 (2.7-4.5) mg/dL Pituitary panel 05/22/18 Range/Units 03:50 Sodium 126 L (136-145) mEq/L Potassium 4.2 (3.5-5.1) mEq/L Chloride 99 (98-107) mEq/L Carbon Dioxide 21 L (23-29) mEq/L BUN 40 H (8-23) mg/dL Creatinine 0.90 (0.60-1.20) mg/dL Glucose 150 H (70-105) mg/dL Calcium 8.6 (8.6-10.3) mg/dL Adrenal panel 05/22/18 Range/Units 03:50 Sodium 126 L (136-145) mEq/L Potassium 4.2 (3.5-5.1) mEq/L Chloride 99 (98-107) mEq/L Carbon Dioxide 21 L (23-29) mEq/L BUN 40 H (8-23) mg/dL Creatinine 0.90 (0.60-1.20) mg/dL Glucose 150 H (70-105) mg/dL Calcium 8.6 (8.6-10.3) mg/dL - Attending Attestation I have personally seen and examined the patient. I have reviewed pertinent labs , imaging, progress notes, including this one. I agree with the above assessment and plan.
[2018-05-22] MEDS: *HR* Rivaroxaban 15 MG TABLET PO SCH (16:52)
[2018-05-22] MEDS ORDERED: Clinimix E 5%-15% SOLUTION 2,000 ML with MVI, adult with vitamin K 10 ML, Calcium Glu... IVC SCH (17:00)
[2018-05-22 17:33] LABS: Appearance of Pleural Fl Hazy (Clear)
[2018-05-22 17:45] LABS: RBC,Pleural Fluid 0.038 M/mcL
[2018-05-22 17:56] LABS: Amylase,Pleural Fluid < 10 Units/L (No Ref Range); Glucose,Pleural Fluid 173 mg/dL (No Ref Range); LDH,Pleural Fluid 203 Units/L (No Ref Range); Total Protein,Pleural Fluid < 3.0 g/dL (No Ref Range)
[2018-05-23] MEDS: MetroNIDAZOLE 500 MG/100 ML 500 MG/100 ML BAG IVPB SCH ×2 (00:29→08:58)
[2018-05-23] MEDS: Insulin LISPRO 300 UNITS/3 ML VIAL SQ SCH ×6 (00:30→20:46)
[2018-05-23] MEDS: OXYCODONE Oral CONC 10 MG/0.5 ML ORAL.SYG SL PRN ×4 (00:30→16:20)
[2018-05-23] MEDS: Metoclopramide 10 MG/2 ML VIAL IVP SCH ×5 (00:30→23:22)
[2018-05-23 04:34] LABS: Basophils % 0.2 %; Eosinophils # 0.1 K/mcL (0.0-0.6); Eosinophils % 0.3 %; Hematocrit 33.7 % (35.3-44.9); Hemoglobin 10.9 g/dL (11.5-15.4); Immature Granulocytes % 14.9 % (0-4); Lymphocytes # 1.9 K/mcL (0.6-4.6); Lymphocytes % 7.5 %; Mean Corpuscular HGB Conc 32.3 g/dL (31.6-35.5); Mean Corpuscular Hemoglobin 29.3 pg (28.0-33.3); Mean Corpuscular Volume 90.6 fL (83.0-100.0); Monocytes # 1.3 K/mcL (0.0-1.3); Monocytes % 5.1 %; Platelet Count 168 K/mcL (140-400); Red Blood Count 3.72 M/mcL (3.82-4.97); Red Cell Distribution Width 14.2 % (11.5-14.5)
[2018-05-23 04:37] LABS: Basophils # 0.1 K/mcL (0.0-0.2); Neutrophils # 17.9 K/mcL (1.6-8.9)
[2018-05-23 04:45] LABS: BUN/Creatinine Ratio 51 (6-26); Blood Urea Nitrogen 46 mg/dL (8-23); Carbon Dioxide 17 mEq/L (23-29); Chloride 98 mEq/L (98-107); Glucose 118 mg/dL (70-105); Magnesium 2.1 mg/dL (1.6-2.6); Osmolality,Calculated 269 (280-300); Phosphorous 3.2 mg/dL (2.7-4.5); Potassium 4.5 mEq/L (3.5-5.1); Sodium 123 mEq/L (136-145); eGFR For African Americans > 60 (> 60); eGFR For Non-African Americans 60 (> 60)
[2018-05-23 05:03] LABS: Reactive Lymphocytes Present (Not Present)
[2018-05-23 05:04] LABS: Platelet Estimate Normal (Normal); Toxic Granulation Present (Not Present)
[2018-05-23] MEDS: Levothyroxine Sodium 100 MCG VIAL IVP SCH (05:10)
[2018-05-23] MEDS: Pantoprazole 40 MG VIAL IVP SCH (08:57)
[2018-05-23] MEDS: Levofloxacin 750 MG/150 ML 750 MG/150 ML BAG IVPB SCH (08:57)
[2018-05-23] MEDS: Diltiazem CD (24hr) 120 MG CAPSULE PO SCH (08:57)
--- NOTE | 2018-05-23 10:12 | General Surgery Progress Note ---
<Shai Tsai - Last Filed: 05/23/18 10:09> Date of Encounter: 05/23/18 Time of Encounter: 07:45 - Assessment and Plan (1) Gastric outlet obstruction Current Visit: Yes Status: Acute POD #9 Exploratory laparotomy with reduction of gastric volvulus, hiatal hernia repair, Jairo fundoplication, Gastropexy with Dr. Price Pathology reviewed; Complete UGI 05/19/18 - no leak or reflux noted; CT 05/21 no acute abd pathology NG tube removed 05/19/18 Plan: Limited Clear liquids - no carbonation (will need to remain on clears until directed by surgery) - consider full tray of clears tomorrow Ensure clear TID Continue TPN at goal rate until adequate caloric intake Continue WILLIAM drain Continue supportive care and discomfort management PPI therapy daily Incentive spirometer every 1 hour while awake Out of bed to chair BID Ambulate with assistance Noted leukocytosis and likely pulmonary etiology s/p thoracentesis with small amount of straw colored fluid returned ATBX per primary team (2) Atrial fibrillation with rapid ventricular response Current Visit: Yes Status: Acute Management per primary. Rate controlled now (3) Pleural effusion Current Visit: Yes Status: Acute Management per primary team Subjective Patient reports: no new complaints, feels better, still having pain, pain is less, voiding w/o difficulty ([place]), afebrile Narrative: Pain is controlled. Denies bloating. Denies N/V. Not much appetite, but doing well with sips of clear liquids. Objective Vital Signs - Last 8 Hours Temp Pulse Resp BP Pulse Ox 05/23/18 06:56 98.1 F 91 20 151/82 94 05/23/18 03:34 97.9 F 93 17 147/83 96 Intake and Output 05/22/18 05/23/18 05/23/18 23:59 07:59 15:59 Intake Total 2310 / 2310 100 / 100 Output Total 400 / 400 305 / 305 Balance 1909 - / Intake: IV Fluids 2109 100 / 100 Clinimix E 5%-15% SOLUTION 2009 000 ML @ 83.3 mls/hr IVC .Q24H [facility] with M.v.i. Adult 10 ml Rx# :[id number] Flagyl Premix 500 MG/100 ML 500 100 / 100 100 / 100 mg In 100 ml @ 100 mls/hr IVPB Q8HR [facility] Rx#:[id number] Oral 200 / 200 Output: Catheter 400 / 400 305 / 305 Other: Meal Dinner Percent of Meal Consumed 0% Weight 93.8 kg Blood Glucose* 144 145 Patient Weight 05/23/18 23:59 Weight 93.8 kg - General physical appearance well developed, well nourished, no distress - Eyes normal ocular movement - Respiratory normal respiratory effort, other (decreased breath sounds) - Cardiovascular Cardiovascular exam: Present: irregular rhythm - Abdomen Abdomen: Present: bowel sounds present, soft, tender (appropriately) - Incision Incision: Present: clean and dry, intact - Neurologic CN 2-12 grossly intact, normal coordination - Psychiatric oriented to time, oriented to person, oriented to place, speech is normal, memory intact - Labs 05/23/18 04:10 05/23/18 04:10 Diabetes panel 05/23/18 Range/Units 04:10 Sodium 123 L (136-145) mEq/L Potassium 4.5 (3.5-5.1) mEq/L Chloride 98 (98-107) mEq/L Carbon Dioxide 17 L (23-29) mEq/L BUN 46 H (8-23) mg/dL Creatinine 0.91 (0.60-1.20) mg/dL Glucose 118 H (70-105) mg/dL Calcium 9.0 (8.6-10.3) mg/dL Calcium panel 05/23/18 05/23/18 Range/Units 04:10 04:10 Calcium 9.0 (8.6-10.3) mg/dL Phosphorus 3.2 (2.7-4.5) mg/dL Pituitary panel 05/23/18 Range/Units 04:10 Sodium 123 L (136-145) mEq/L Potassium 4.5 (3.5-5.1) mEq/L Chloride 98 (98-107) mEq/L Carbon Dioxide 17 L (23-29) mEq/L BUN 46 H (8-23) mg/dL Creatinine 0.91 (0.60-1.20) mg/dL Glucose 118 H (70-105) mg/dL Calcium 9.0 (8.6-10.3) mg/dL Adrenal panel 05/23/18 Range/Units 04:10 Sodium 123 L (136-145) mEq/L Potassium 4.5 (3.5-5.1) mEq/L Chloride 98 (98-107) mEq/L Carbon Dioxide 17 L (23-29) mEq/L BUN 46 H (8-23) mg/dL Creatinine 0.91 (0.60-1.20) mg/dL Glucose 118 H (70-105) mg/dL Calcium 9.0 (8.6-10.3) mg/dL - VTE Documentation of Mechanical Device: Intermittent pneumatic compression device Consult Discharge Plan - Plan Referrals: Maxwell Ramos MD [Primary Care Provider] - (PER DR. RAMOS'S OFFICE THE PATIENT HAS TO MAKE THEIR OWN APPOINTMENT) Wiliam Connor CNP [Advanced Practice Nurse] - (OFFICE WILL CALL PATIENT AT HOME WITH FOLLOW UP APPOINTMENT) <Maxwell Justice - Last Filed: 05/23/18 12:08> Date of Encounter: 05/23/18 Objective Vital Signs - Last 8 Hours Temp Pulse Resp BP Pulse Ox 05/23/18 11:10 97.8 F 94 18 99/77 100 05/23/18 10:44 97.9 F 97 18 141/56 95 05/23/18 08:45 98.1 F 91 20 151/82 94 05/23/18 06:56 98.1 F 91 20 151/82 94 Intake and Output 05/22/18 05/23/18 05/23/18 23:59 07:59 15:59 Intake Total 2310 / 2310 100 / 100 690 / 690 Output Total 400 / 400 305 / 305 0 / 0 Balance 1909 / 1909 -205 / -205 690 / 690 Intake: IV Fluids 2109 100 / 100 Clinimix E 5%-15% SOLUTION , 2009 000 ML @ 83.3 mls/hr IVC .Q24H [facility] with M.v.i. Adult 10 ml Rx# :[id number] Flagyl Premix 500 MG/100 ML 500 100 / 100 100 / 100 mg In 100 ml @ 100 mls/hr IVPB Q8HR [facility] Rx#:[id number] Oral 200 / 200 690 / 690 Output: Catheter 400 / 400 305 / 305 0 / 0 Wound Drainage 0 / 0 Lower Abdomen 0 / 0 Other: Meal Dinner Breakfast Percent of Meal Consumed 0% 50% Weight 93.8 kg Blood Glucose* 144 145 167 Patient Weight 05/23/18 23:59 Weight 93.8 kg - Labs 05/23/18 04:10 05/23/18 04:10 Diabetes panel 05/23/18 Range/Units 04:10 Sodium 123 L (136-145) mEq/L Potassium 4.5 (3.5-5.1) mEq/L Chloride 98 (98-107) mEq/L Carbon Dioxide 17 L (23-29) mEq/L BUN 46 H (8-23) mg/dL Creatinine 0.91 (0.60-1.20) mg/dL Glucose 118 H (70-105) mg/dL Calcium 9.0 (8.6-10.3) mg/dL Calcium panel 05/23/18 05/23/18 Range/Units 04:10 04:10 Calcium 9.0 (8.6-10.3) mg/dL Phosphorus 3.2 (2.7-4.5) mg/dL Pituitary panel 05/23/18 Range/Units 04:10 Sodium 123 L (136-145) mEq/L Potassium 4.5 (3.5-5.1) mEq/L Chloride 98 (98-107) mEq/L Carbon Dioxide 17 L (23-29) mEq/L BUN 46 H (8-23) mg/dL Creatinine 0.91 (0.60-1.20) mg/dL Glucose 118 H (70-105) mg/dL Calcium 9.0 (8.6-10.3) mg/dL Adrenal panel 05/23/18 Range/Units 04:10 Sodium 123 L (136-145) mEq/L Potassium 4.5 (3.5-5.1) mEq/L Chloride 98 (98-107) mEq/L Carbon Dioxide 17 L (23-29) mEq/L BUN 46 H (8-23) mg/dL Creatinine 0.91 (0.60-1.20) mg/dL Glucose 118 H (70-105) mg/dL Calcium 9.0 (8.6-10.3) mg/dL - Attending Attestation I examined this patient and my medical decision-making was reviewed with the Resident Physician. I agree with the documented findings, disposition and treatment plan as described except to the extent set forth below. The patient is seen and evaluated with the resident on morning rounds. She is sitting in a chair comfortably but really not very hungry. She is taking clear liquids. We will continue her on clear liquids today as well as continue her TPN. She continues to make slow progress. Maxwell Justice MD FACS
[2018-05-23] MEDS: 0.9 % Sodium Chloride 1,000 ML IVC SCH ×2 (11:30→23:21)
--- NOTE | 2018-05-23 12:36 | Internal Med Progress Note ---
Date of Encounter: 05/23/18 Time of Encounter: 12:30 - Assessment and plan (1) Gastric volvulus Current Visit: Yes Status: Acute Assessment and plan: S/P Exploratory laparotomy with reduction of gastric volvulus hiatal hernia repair Jairo fundoplication Gastropexy. POD #9. GI series done to rule out obstruction was negative for any obstruction. NG tube has been discontinued. Surgery following. Continue TPN. CT abdomen showed moderate to large left pleural effusion. s/p thoracentesis on 05/22 (2) New onset a-fib Current Visit: Yes Status: Resolved Assessment and plan: Cardiac echo normal ejection fraction. Has been transitioned to po Cardizem and xarelto (3) Leukocytosis Current Visit: Yes Status: Acute Assessment and plan: Worsening leukocytosis. Possibly secondary to pneumonia with left pleural effusion.Continue on zosyn. F/U blood cultures and urinalysis. Echo showed EF of 60%. s/p thoracentesis with reomoval of abou 400cc of fluid follow up pleural fluid studies, serum LDH Qualifiers: Leukocytosis type: unspecified Qualified Code(s): D72.829 - Elevated white blood cell count, unspecified (4) Pneumonia Current Visit: Yes Status: Acute Assessment and plan: Leukocytosis with pneumonia. CT showed large left pleural effusion. For IR drainage today Qualifiers: Laterality: left Lung location: lower lobe of lung Qualified Code(s): J18.1 - Lobar pneumonia, unspecified organism (5) DVT prophylaxis Current Visit: Yes Status: Acute Assessment and plan: Heparin subcutaneous (6) Hypertension Current Visit: Yes Status: Acute Assessment and plan: Controlled Qualifiers: Hypertension type: essential hypertension Qualified Code(s): I10 - Essential (primary) hypertension Code(s): I10 - Essential (primary) hypertension SNOMED Code(s): 84090439 (7) Volume depletion Current Visit: Yes Status: Acute Assessment and plan: Gentle hydration (8) Hypophosphatemia Current Visit: Yes Status: Acute Assessment and plan: Replaced Code(s): E83.39 - Other disorders of phosphorus metabolism (9) Hyponatremia Current Visit: Yes Status: Acute Assessment and plan: Started on normal saline. D?C sodium tablets to avoid overcorrection - Time Spent With Patient Total time spent is greater than 50% in coordination of care (as documented) at patient's floor/unit and/or counseling patient: - Subjective Interval history: No acute events overnight - Constitutional Vitals: Temp Pulse Resp BP Pulse Ox 97.8 F 94 18 99/77 100 05/23/18 11:35 05/23/18 11:35 05/23/18 11:35 05/23/18 11:35 05/23/18 11:35 General appearance: Present: A&O X 3, pleasant, no acute distress - Head Head exam: Present: atraumatic, normocephalic - Eye Eye exam: Present: PERRL, conjuntiva pink, sclera anicteric Pupils: Present: PERRL - Neck Neck exam general surgery: Present: supple, trachea midline. Absent: lymphadenopathy - Respiratory Respiratory exam: Present: CTAB. Absent: accessory muscle use, rales, rhonchi, wheezes - Cardiovascular Cardiovascular exam: Present: RRR, +S1, +S2. Absent: diastolic murmur, gallop, rubs, systolic murmur - GI/Abdominal GI/Abdominal exam: Present: normal bowel sounds, soft, no peritoneal signs. Absent: distended, tenderness - Extremities Exam Extremities exam: Present: warm, radial pulses palpable and symmetrical. Absent : calf tenderness, cyanotic, pedal edema - Neurological Exam Neurological exam: Present: CN II-XII intact, oriented X3, no focal deficits. Absent: pronater drift, facial droop, speech deficit - Skin Skin exam: Present: dry, intact Internal Medicine: Result - Labs CBC & Chem 7: 05/23/18 04:10 05/23/18 04:10 Labs: Short CBC 05/23/18 Range/Units 04:10 WBC 24.8 H (4.3-11.1) K/mcL Hgb 10.9 L (11.5-15.4) g/dL Hct 33.7 L (35.3-44.9) % Plt Count 168 (140-400) K/mcL Neutrophils # 17.9 H (1.6-8.9) K/mcL BMP 05/23/18 04:10 Sodium 123 L Potassium 4.5 Chloride 98 Carbon Dioxide 17 L BUN 46 H Creatinine 0.91 Glucose 118 H Calcium 9.0 - ABG Interpretation ABG results: PT/INR, D-dimer PT 11.5 Seconds (9.4-12.1) 05/13/18 18:00 - Impressions Impressions Chest/Abdomen X-ray 05/20/18 11:50 IMPRESSION: 1. Again noted is a distended stomach with an air-fluid level. There is also gas scattered throughout the mildly dilated colon and small bowel likely reflecting ileus. 2. No free air on the upright images. 3. Small to moderate left pleural effusion with adjacent atelectasis. Right mid lung atelectasis is also noted. 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 Surgical drain present. No evidence of abscess in the abdomen or pelvis. Small foci of free air in the epigastric region likely related to recent surgery. Moderate to large left and small right pleural effusions with bibasilar atelectasis. This may be a cause of leukocytosis. D/ / 05/21/2018 11:28:15 Tyrone Davis MD / daysi Interpreting Provider: Tyrone Davis MD Thoracentesis Ultrasound 05/22/18 11:41 IMPRESSION: Successful ultrasound guided thoracentesis. D/ / Aryan Dias MD / Aryan Dias MD Interpreting Provider: Aryan Dias MD Chest X-Ray 05/22/18 14:16 IMPRESSION: No pneumothorax is seen, following left thoracentesis. Bibasilar atelectasis. D/ / Brian Diallo MD / Brian Diallo MD Interpreting Provider: Brian Diallo MD - VTE Documentation of Mechanical Device: Intermittent pneumatic compression device Consult Discharge Plan - Plan Referrals: Maxwell Ramos MD [Primary Care Provider] - (PER DR. RAMOS'S OFFICE THE PATIENT HAS TO MAKE THEIR OWN APPOINTMENT) Wiliam Connor, [employer] SAL[employer] REP [Advanced Practice Nurse] - (OFFICE WILL CALL PATIENT AT HOME WITH FOLLOW UP APPOINTMENT)
[2018-05-23 14:33] LABS: Potassium 4.6 mEq/L (3.5-5.1)
[2018-05-23 14:38] LABS: Albumin 2.7 g/dL (3.5-5.7); Bilirubin,Direct 0.2 mg/dL (0.0-0.2); Bilirubin,Indirect 0.4 mg/dL (0.0-1.2); Bilirubin,Total 0.6 mg/dL (0.3-1.0); Globulin 2.7 g/dL (2.4-3.5); Total Protein 5.4 g/dL (6.4-8.9)
[2018-05-23] MEDS: Piperacillin/Tazobactam 3.375 GM in 0.9 % Sodium Chloride Mini Bag 100 ML IVPB SCH ×2 (16:22→23:22)
[2018-05-23] MEDS: *HR* Rivaroxaban 15 MG TABLET PO SCH (16:24)
[2018-05-23] MEDS ORDERED: Clinimix E 5%-15% SOLUTION 2,000 ML with MVI, adult with vitamin K 10 ML, Calcium Glu... IVC SCH (17:00)
[2018-05-24] MEDS: Insulin LISPRO 300 UNITS/3 ML VIAL SQ SCH ×7 (00:04→23:54)
[2018-05-24] MEDS: OXYCODONE Oral CONC 10 MG/0.5 ML ORAL.SYG SL PRN ×4 (00:07→19:26)
[2018-05-24 03:28] LABS: Basophils # 0.1 K/mcL (0.0-0.2); Basophils % 0.6 %; Eosinophils # 0.1 K/mcL (0.0-0.6); Eosinophils % 0.4 %; Hematocrit 31.5 % (35.3-44.9); Hemoglobin 10.3 g/dL (11.5-15.4); Immature Granulocytes % 12.9 % (0-4); Lymphocytes # 1.7 K/mcL (0.6-4.6); Lymphocytes % 8.8 %; Mean Corpuscular HGB Conc 32.7 g/dL (31.6-35.5); Mean Corpuscular Hemoglobin 29.8 pg (28.0-33.3); Mean Platelet Volume 9.9 fL (9.4-12.4); Monocytes % 5.1 %; Neutrophils # 13.8 K/mcL (1.6-8.9); Platelet Count 163 K/mcL (140-400); Red Blood Count 3.46 M/mcL (3.82-4.97); Red Cell Distribution Width 14.3 % (11.5-14.5); Segmented Neutrophils % 72.2 %
[2018-05-24 03:30] LABS: VBG Ionized Calcium 1.23 mmol/L (1.15-1.35)
[2018-05-24 03:47] LABS: Magnesium 1.9 mg/dL (1.6-2.6); Phosphorous 2.7 mg/dL (2.7-4.5)
[2018-05-24 03:48] LABS: BUN/Creatinine Ratio 45 (6-26); Blood Urea Nitrogen 39 mg/dL (8-23); Calcium 8.5 mg/dL (8.6-10.3); Carbon Dioxide 21 mEq/L (23-29); Chloride 100 mEq/L (98-107); Glucose 124 mg/dL (70-105); Osmolality,Calculated 271 (280-300); Potassium 4.4 mEq/L (3.5-5.1); Sodium 125 mEq/L (136-145); eGFR For African Americans > 60 (> 60); eGFR For Non-African Americans > 60 (> 60)
[2018-05-24 04:05] LABS: Platelet Estimate Normal (Normal)
[2018-05-24] MEDS: Metoclopramide 10 MG/2 ML VIAL IVP SCH ×3 (06:01→17:17)
[2018-05-24] MEDS ORDERED: 0.9 % Sodium Chloride 1,000 ML IVC SCH (07:45)
[2018-05-24] MEDS: Piperacillin/Tazobactam 3.375 GM in 0.9 % Sodium Chloride Mini Bag 100 ML IVPB SCH ×2 (08:05→17:00)
[2018-05-24] MEDS: Diltiazem CD (24hr) 120 MG CAPSULE PO SCH (08:05)
[2018-05-24] MEDS: Pantoprazole 40 MG VIAL IVP SCH (08:06)
--- NOTE | 2018-05-24 08:43 | General Surgery Progress Note ---
<Shai Tsai - Last Filed: 05/24/18 10:10> Date of Encounter: 05/24/18 Time of Encounter: 08:15 - Assessment and Plan (1) Gastric outlet obstruction Current Visit: Yes Status: Acute POD #10 Exploratory laparotomy with reduction of gastric volvulus, hiatal hernia repair, Jairo fundoplication, Gastropexy with Dr. Price Pathology reviewed; Complete UGI 05/19/18 - no leak or reflux noted; CT 05/21 no acute abd pathology NG tube removed 05/19/18 Plan: Clear liquids - no carbonation (will need to remain on clears until directed by surgery) Ensure clear TID Continue TPN at goal rate until adequate caloric intake Continue WILLIAM drain Continue supportive care and discomfort management PPI therapy daily Incentive spirometer every 1 hour while awake Out of bed to chair BID Ambulate with assistance Noted leukocytosis and likely pulmonary etiology s/p thoracentesis with small amount of straw colored fluid returned Antibiotics per primary team (2) Atrial fibrillation with rapid ventricular response Current Visit: Yes Status: Acute Management per primary. Rate controlled now (3) Pleural effusion Current Visit: Yes Status: Acute Management per primary team Subjective Patient reports: no new complaints, feels better, still having pain, pain is less, tolerating liquids well (limited amount), voiding w/o difficulty, afebrile Narrative: Pt denies specific complaints. Getting up to a chair intermittently. Reports no N/V with limited clear liquids. States she still doesn't have much appetite. Denies flatus or BM yesterday. Objective Vital Signs - Last 8 Hours Temp Pulse Resp BP Pulse Ox 05/24/18 07:00 98.0 F 87 20 126/66 94 05/24/18 03:33 97.9 F 74 18 126/58 94 Intake and Output 05/23/18 05/24/18 05/24/18 23:59 07:59 15:59 Intake Total 1300 / 1300 350 / 350 Output Total 1365 / 1365 305 / 305 Balance -65 / -65 45 / 45 Intake: IV Fluids 1100 / 1100 350 / 350 0.9 % Sodium Chloride 1,000 ML 1000 / 1000 @ 100 mls/hr IVC .Q10H [facility] Rx#: [id number] Intralipid 20% 250 ML @ 21 mls/ 250 / 250 hr IVPB DAILY@1700 [facility] Rx#: [id number] Zosyn 3.375 GM In 0.9 % Sodium 100 / 100 100 / 100 Chloride (Mini-Bag +) 100 ML @ 25 mls/hr IVPB Q8HR [facility] Rx#: [id number] Oral 200 / 200 Output: Catheter 1350 / 1350 300 / 300 Urethral (Torres) 450 / 450 Wound Drainage 5 / 5 Lower Abdomen 5 Other: Meal Dinner Percent of Meal Consumed 20% Blood Glucose* 183 113 - General physical appearance no distress - Respiratory other (diminished bilaterally) - Cardiovascular Cardiovascular exam: Present: irregular rhythm - Abdomen Abdomen: Present: bowel sounds present, soft, tender (appropriately). Absent: guarding, rebound, rigid - Incision Incision: Present: clean and dry, intact - Neurologic CN 2-12 grossly intact, normal coordination - Psychiatric oriented to time, oriented to person, oriented to place, speech is normal, memory intact - Labs 05/24/18 03:17 05/24/18 03:17 Diabetes panel 05/23/18 05/23/18 05/24/18 Range/Units 13:40 13:40 03:17 Sodium 125 L (136-145) mEq/L Potassium 4.6 4.4 (3.5-5.1) mEq/L Chloride 100 (98-107) mEq/L Carbon Dioxide 21 L (23-29) mEq/L BUN 39 H (8-23) mg/dL Creatinine 0.86 (0.60-1.20) mg/dL Glucose 124 H (70-105) mg/dL Calcium 8.5 L (8.6-10.3) mg/dL AST 16 (13-39) Units/L ALT 15 (7-52) Units/L Alkaline Phosphatase 134 H (34-104) Units/L Albumin 2.7 L (3.5-5.7) g/dL Calcium panel 05/23/18 05/23/18 05/24/18 Range/Units 13:40 13:40 03:17 Calcium 8.5 L (8.6-10.3) mg/dL Phosphorus 3.0 (2.7-4.5) mg/dL Albumin 2.7 L (3.5-5.7) g/dL 05/24/18 Range/Units 03:17 Calcium (8.6-10.3) mg/dL Phosphorus 2.7 (2.7-4.5) mg/dL Albumin (3.5-5.7) g/dL Pituitary panel 05/23/18 05/24/18 Range/Units 13:40 03:17 Sodium 125 L (136-145) mEq/L Potassium 4.6 4.4 (3.5-5.1) mEq/L Chloride 100 (98-107) mEq/L Carbon Dioxide 21 L (23-29) mEq/L BUN 39 H (8-23) mg/dL Creatinine 0.86 (0.60-1.20) mg/dL Glucose 124 H (70-105) mg/dL Calcium 8.5 L (8.6-10.3) mg/dL Adrenal panel 05/23/18 05/23/18 05/24/18 Range/Units 13:40 13:40 03:17 Sodium 125 L (136-145) mEq/L Potassium 4.6 4.4 (3.5-5.1) mEq/L Chloride 100 (98-107) mEq/L Carbon Dioxide 21 L (23-29) mEq/L BUN 39 H (8-23) mg/dL Creatinine 0.86 (0.60-1.20) mg/dL Glucose 124 H (70-105) mg/dL Calcium 8.5 L (8.6-10.3) mg/dL Total Bilirubin 0.6 (0.3-1.0) mg/dL AST 16 (13-39) Units/L ALT 15 (7-52) Units/L Alkaline Phosphatase 134 H (34-104) Units/L Albumin 2.7 L (3.5-5.7) g/dL - VTE Documentation of Mechanical Device: Intermittent pneumatic compression device Consult Discharge Plan - Plan Referrals: Maxwell Ramos MD [Primary Care Provider] - (PER DR. RAMOS'S OFFICE THE PATIENT HAS TO MAKE THEIR OWN APPOINTMENT) Wiliam Connor, MEDICAL EDUCATOR [Advanced Practice Nurse] - (OFFICE WILL CALL PATIENT AT HOME WITH FOLLOW UP APPOINTMENT) <Maxwell Justice - Last Filed: 05/24/18 10:58> Date of Encounter: 05/24/18 Objective Vital Signs - Last 8 Hours Temp Pulse Resp BP Pulse Ox 05/24/18 08:05 98.0 F 87 20 126/66 94 05/24/18 07:00 98.0 F 87 20 126/66 94 05/24/18 03:33 97.9 F 74 18 126/58 94 Intake and Output 05/23/18 05/24/18 05/24/18 23:59 07:59 15:59 Intake Total 1300 / 1300 350 / 350 0 / 0 Output Total 1365 / 1365 305 / 305 0 / 0 Balance -65 / -65 45 / 45 0 / 0 Intake: IV Fluids 1100 / 1100 350 / 350 0.9 % Sodium Chloride 1,000 ML 1000 / 1000 @ 100 mls/hr IVC .Q10H [facility] Rx#: [id number] Intralipid 20% 250 ML @ 21 mls/ 250 / 250 hr IVPB DAILY@1700 [facility] Rx#: [id number] Zosyn 3.375 GM In 0.9 % Sodium 100 / 100 100 / 100 Chloride (Mini-Bag +) 100 ML @ 25 mls/hr IVPB Q8HR [facility] Rx#: [id number] Oral 200 / 200 0 / 0 Output: Catheter 1350 / 1350 300 / 300 0 / 0 Urethral (Torres) 450 / 450 Wound Drainage 15 15 5 / 5 0 / 0 Lower Abdomen 15 / 15 5 / 5 0 / 0 Other: Meal Dinner Percent of Meal Consumed 20% Blood Glucose* 183 113 113 - Labs 05/24/18 03:17 05/24/18 03:17 Diabetes panel 05/23/18 05/23/18 05/24/18 Range/Units 13:40 13:40 03:17 Sodium 125 L (136-145) mEq/L Potassium 4.6 4.4 (3.5-5.1) mEq/L Chloride 100 (98-107) mEq/L Carbon Dioxide 21 L (23-29) mEq/L BUN 39 H (8-23) mg/dL Creatinine 0.86 (0.60-1.20) mg/dL Glucose 124 H (70-105) mg/dL Calcium 8.5 L (8.6-10.3) mg/dL AST 16 (13-39) Units/L ALT 15 (7-52) Units/L Alkaline Phosphatase 134 H (34-104) Units/L Albumin 2.7 L (3.5-5.7) g/dL Calcium panel 05/23/18 05/23/1805/24/18 Range/Units 13:40 13:40 03:17 Calcium 8.5 L (8.6-10.3) mg/dL Phosphorus 3.0 (2.7-4.5) mg/dL Albumin 2.7 L (3.5-5.7) g/dL 05/24/18 Range/Units 03:17 Calcium (8.6-10.3) mg/dL Phosphorus 2.7 (2.7-4.5) mg/dL Albumin (3.5-5.7) g/dL Pituitary panel 05/23/18 05/24/18 Range/Units 13:40 03:17 Sodium 125 L (136-145) mEq/L Potassium 4.6 4.4 (3.5-5.1) mEq/L Chloride 100 (98-107) mEq/L Carbon Dioxide 21 L (23-29) mEq/L BUN 39 H (8-23) mg/dL Creatinine 0.86 (0.60-1.20) mg/dL Glucose 124 H (70-105) mg/dL Calcium 8.5 L (8.6-10.3) mg/dL Adrenal panel 05/23/18 05/23/18 05/24/18 Range/Units 13:40 13:40 03:17 Sodium 125 L (136-145) mEq/L Potassium 4.6 4.4 (3.5-5.1) mEq/L Chloride 100 (98-107) mEq/L Carbon Dioxide 21 L (23-29) mEq/L BUN 39 H (8-23) mg/dL Creatinine 0.86 (0.60-1.20) mg/dL Glucose 124 H (70-105) mg/dL Calcium 8.5 L (8.6-10.3) mg/dL Total Bilirubin 0.6 (0.3-1.0) mg/dL AST 16 (13-39) Units/L ALT 15 (7-52) Units/L Alkaline Phosphatase 134 H (34-104) Units/L Albumin 2.7 L (3.5-5.7) g/dL - Attending Attestation I examined this patient and my medical decision-making was reviewed with the Resident Physician. I agree with the documented findings, disposition and treatment plan as described except to the extent set forth below. The patient is seen and evaluated on morning rounds with resident. She is sitting comfortably in bed. She is tolerating clear liquids. I think at reasonable to advance her to full liquids. We should be able to wean the TPN tomorrow. Maxwell Justice MD FACS
--- NOTE | 2018-05-24 10:16 | Internal Med Progress Note ---
Date of Encounter: 05/24/18 Time of Encounter: 10:15 - Assessment and plan (1) Gastric volvulus Current Visit: Yes Status: Acute Assessment and plan: S/P Exploratory laparotomy with reduction of gastric volvulus hiatal hernia repair Jairo fundoplication Gastropexy. POD #10. GI series done to rule out obstruction was negative for any obstruction. NG tube has been discontinued . Surgery following. Continue TPN. CT abdomen showed moderate to large left pleural effusion and no acute GI abnormalities. s/p thoracentesis on 05/22. On clear liquids. continue management per surgery (2) New onset a-fib Current Visit: Yes Status: Resolved Assessment and plan: Cardiac echo normal ejection fraction. Has been transitioned to po Cardizem and xarelto. Rate controlled (3) Exudative pleural effusion Current Visit: Yes Status: Acute Assessment and plan: See plan for leukocytosis. Pleural fluid LDH to serum LDH ratio was 0.8 (4) Leukocytosis Current Visit: Yes Status: Acute Assessment and plan: Worsening leukocytosis. Possibly secondary to pneumonia with left pleural effusion. F/U blood cultures and urinalysis. Echo showed EF of 60%. s/p thoracentesis with reomoval of about 400cc of fluid. Pleural fluid exudative based on studies. Continue zosyn. Leukocytosis trending down Qualifiers: Leukocytosis type: unspecified Qualified Code(s): D72.829 - Elevated white blood cell count, unspecified (5) Pneumonia Current Visit: Yes Status: Acute Assessment and plan: Leukocytosis with pneumonia. CT showed large left pleural effusion. For IR drainage today Qualifiers: Laterality: left Lung location: lower lobe of lung Qualified Code(s): J18.1 - Lobar pneumonia, unspecified organism (6) DVT prophylaxis Current Visit: Yes Status: Acute Assessment and plan: Heparin subcutaneous (7) Hypertension Current Visit: Yes Status: Acute Assessment and plan: Controlled Qualifiers: Hypertension type: essential hypertension Qualified Code(s): I10 - Essential (primary) hypertension Code(s): I10 - Essential (primary) hypertension SNOMED Code(s): 74514142 (8) Volume depletion Status: Acute Assessment and plan: Gentle hydration (9) Hypophosphatemia Current Visit: Yes Status: Acute Assessment and plan: Replaced Code(s): E83.39 - Other disorders of phosphorus metabolism (10) Hyponatremia Current Visit: Yes Status: Acute Assessment and plan: Improving with normal saline - Time Spent With Patient Total time spent is greater than 50% in coordination of care (as documented) at patient's floor/unit and/or counseling patient: - Subjective Interval history: No acute events overnight - Constitutional Vitals: Temp Pulse Resp BP Pulse Ox 98.0 F 87 20 126/66 94 05/24/18 08:05 05/24/18 08:05 05/24/18 08:05 05/24/18 08:05 05/24/18 08:05 General appearance: Present: A&O X 3, pleasant, no acute distress - Head Head exam: Present: atraumatic, normocephalic - Eye Eye exam: Present: PERRL, conjuntiva pink, sclera anicteric Pupils: Present: PERRL - Neck Neck exam general surgery: Present: supple, trachea midline. Absent: lymphadenopathy - Respiratory Respiratory exam: Present: CTAB. Absent: accessory muscle use, rales, rhonchi, wheezes - Cardiovascular Cardiovascular exam: Present: RRR, +S1, +S2. Absent: diastolic murmur, gallop, rubs, systolic murmur - GI/Abdominal GI/Abdominal exam: Present: normal bowel sounds, soft, no peritoneal signs. Absent: distended, tenderness - Extremities Exam Extremities exam: Present: warm, radial pulses palpable and symmetrical. Absent : calf tenderness, cyanotic, pedal edema - Neurological Exam Neurological exam: Present: CN II-XII intact, oriented X3, no focal deficits. Absent: pronater drift, facial droop, speech deficit - Skin Skin exam: Present: dry, intact Internal Medicine: Result - Labs CBC & Chem 7: 05/24/18 03:17 05/24/18 03:17 Labs: Short CBC 05/24/18 Range/Units 03:17 WBC 19.1 H (4.3-11.1) K/mcL Hgb 10.3 L (11.5-15.4) g/dL Hct 31.5 L (35.3-44.9) % Plt Count 163 (140-400) K/mcL Neutrophils # 13.8 H (1.6-8.9) K/mcL BMP 05/23/18 05/24/18 13:40 03:17 Sodium 125 L Potassium 4.6 4.4 Chloride 100 Carbon Dioxide 21 L BUN 39 H Creatinine 0.86 Glucose 124 H Calcium 8.5 L Liver Function 05/23/18 Range/Units 13:40 Total Bilirubin 0.6 (0.3-1.0) mg/dL Direct Bilirubin 0.2 (0.0-0.2) mg/dL AST 16 (13-39) Units/L ALT 15 (7-52) Units/L Alkaline Phosphatase 134 H (34-104) Units/L Albumin 2.7 L (3.5-5.7) g/dL - ABG Interpretation ABG results: PT/INR, D-dimer PT 11.5 Seconds (9.4-12.1) 05/13/18 18:00 - Impressions Impressions Abdomen/Pelvis CT 05/21/18 09:45 IMPRESSION: Postsurgical changes status post 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 Surgical drain present. No evidence of abscess in the abdomen or pelvis. Small foci of free air in the epigastric region likely related to recent surgery. Moderate to large left and small right pleural effusions with bibasilar atelectasis. This may be a cause of leukocytosis. D/ / 05/21/2018 11:28:15 Tyrone Davis MD / daysi Interpreting Provider: Tyrone Davis MD Chest X-Ray 05/23/18 12:42 IMPRESSION: Stable left pleural effusion with edema versus atelectasis in the lower lung zone. D/ / Munir Harper MD / Munir Harper MD Interpreting Provider: Munir Harper MD - VTE Documentation of Mechanical Device: Intermittent pneumatic compression device Consult Discharge Plan - Plan Referrals: Maxwell Ramos MD [Primary Care Provider] - (PER DR. RAMOS'S OFFICE THE PATIENT HAS TO MAKE THEIR OWN APPOINTMENT) Wiliam Connor, BELT MACHINE OPERATOR [Advanced Practice Nurse] - (OFFICE WILL CALL PATIENT AT HOME WITH FOLLOW UP APPOINTMENT)
[2018-05-24] MEDS: 0.9 % Sodium Chloride 1,000 ML IVC SCH ×2 (12:17→22:18)
[2018-05-24] MEDS ORDERED: Clinimix E 5%-15% SOLUTION 2,000 ML with MVI, adult with vitamin K 10 ML, Calcium Glu... IVC SCH (17:00)
[2018-05-24] MEDS: *HR* Rivaroxaban 15 MG TABLET PO SCH (17:17)
[2018-05-25] MEDS: Piperacillin/Tazobactam 3.375 GM in 0.9 % Sodium Chloride Mini Bag 100 ML IVPB SCH ×4 (00:05→23:52)
[2018-05-25] MEDS: Metoclopramide 10 MG/2 ML VIAL IVP SCH ×5 (00:05→23:52)
[2018-05-25] MEDS: OXYCODONE Oral CONC 10 MG/0.5 ML ORAL.SYG SL PRN ×2 (02:34→08:42)
[2018-05-25] MEDS: Insulin LISPRO 300 UNITS/3 ML VIAL SQ SCH ×6 (04:09→23:42)
[2018-05-25 04:34] LABS: Hematocrit 31.1 % (35.3-44.9); Hemoglobin 10.1 g/dL (11.5-15.4); Mean Corpuscular HGB Conc 32.5 g/dL (31.6-35.5); Mean Corpuscular Hemoglobin 29.9 pg (28.0-33.3); Platelet Count 182 K/mcL (140-400); Red Blood Count 3.38 M/mcL (3.82-4.97); Red Cell Distribution Width 14.1 % (11.5-14.5)
[2018-05-25 04:35] LABS: VBG Ionized Calcium 1.28 mmol/L (1.15-1.35)
[2018-05-25 04:50] LABS: Magnesium 1.8 mg/dL (1.6-2.6); Phosphorous 2.4 mg/dL (2.7-4.5)
[2018-05-25 04:51] LABS: BUN/Creatinine Ratio 42 (6-26); Blood Urea Nitrogen 33 mg/dL (8-23); Calcium 8.4 mg/dL (8.6-10.3); Carbon Dioxide 21 mEq/L (23-29); Chloride 102 mEq/L (98-107); Glucose 138 mg/dL (70-105); Osmolality,Calculated 271 (280-300); Potassium 4.4 mEq/L (3.5-5.1); Sodium 126 mEq/L (136-145); eGFR For African Americans > 60 (> 60); eGFR For Non-African Americans > 60 (> 60)
[2018-05-25 05:05] LABS: Lymphocytes # 1.4 K/mcL (0.6-4.6); Monocytes # 0.7 K/mcL (0.0-1.3); Neutrophils # 14.7 K/mcL (1.6-8.9); Platelet Estimate Normal (Normal)
[2018-05-25 05:06] LABS: Reactive Lymphocytes Present (Not Present)
[2018-05-25] MEDS: Diltiazem CD (24hr) 120 MG CAPSULE PO SCH (07:57)
[2018-05-25] MEDS: Pantoprazole 40 MG VIAL IVP SCH (07:57)
--- NOTE | 2018-05-25 09:43 | General Surgery Progress Note ---
Date of Encounter: 05/25/18 Time of Encounter: 09:39 - Assessment and Plan (1) Gastric volvulus Current Visit: Yes Status: Acute POD #11 Exploratory laparotomy with reduction of gastric volvulus, hiatal hernia repair, Jairo fundoplication, Gastropexy with Dr. Price Pathology reviewed; Complete UGI 05/19/18- no leak or reflux noted; Ct 05/21 no acute abd pathology NG tube removed 05/19/18 She is edematous in BLLE 2-3+ to the knee. Borrero is in place. Would recommend diuresis while borrero is in place for accurate I/O Plan: FLD, no carbonation (do not advance past FLD unless directed by surgery) Ensure clear TID Calorie count. Wean TPN when adequate caloric intake. Continue WILLIAM drain, 45ml output 05/24, 7ml thus far today (likely d/c 05/26/2018 ) continue supportive care and discomfort management Continue Reglan until daily BMs. PPI therapy daily Incentive spirometer every 1 hour while awake Out of bed to chair BID Ambulate with assistance WBC downtrending per primary management. (2) Leg edema Current Visit: Yes Status: Acute BLLE edema 2-3+ pitting to the knee. Management per primary team. No surgical indication to withhold diuresis at this time; reviewed with bedside RN (3) Pleural effusion Current Visit: Yes Status: Acute see above (4) Atrial fibrillation with controlled ventricular rate Current Visit: Yes Status: Acute per primary team Subjective Patient reports: no new complaints, pain is less, voiding w/o difficulty (per borrero), flatus, bowel movement, shortness of breath (with movement and talking) Objective Vital Signs - Last 8 Hours Temp Pulse Resp BP Pulse Ox 05/25/18 07:12 98.6 F 72 16 118/46 95 05/25/18 03:43 98.8 F 16 128/65 94 Intake and Output 05/24/18 05/25/18 05/25/18 23:59 07:59 15:59 Intake Total 1220 / 1220 100 / 100 Output Total 1595 / 1595 507 / 507 Balance -375 / -375 -407 / -407 Intake: IV Fluids 1100 / 1100 100 / 100 0.9 % Sodium Chloride 1,000 ML 1000 / 1000 @ 100 mls/hr IVC .Q10H DEDE Rx#: [id number] Zosyn 3.375 GM In 0.9 % Sodium 100 / 100 100 / 100 Chloride (Mini-Bag +) 100 ML @ 25 mls/hr IVPB Q8HR DEDE Rx#: [id number] Oral 120 / 120 Output: Urine 200 / 200 Catheter 1555 / 1555 300 / 300 Wound Drainage 40 / 40 7 / 7 Lower Abdomen 40 / 40 7 / 7 Other: Meal Dinner Percent of Meal Consumed 45% Stool Size Small Stool Consistency loose Stool Color Brown Weight 94.3 kg Blood Glucose* 154 127 Patient Weight 05/25/18 23:59 Weight 94.3 kg VITAL SIGNS: Reviewed. See [facility] GENERAL: In no apparent distress. HEENT: Normocephalic, atraumatic, pupils are equal and reactive, extraocular motions intact, oropharynx is pink and moist, there is no neck adenopathy. There is some JVD noted. CHEST/RESPIRATORY: The thorax is free from signs of trauma. Lung sounds: Decreased. Crackles in the bases CARDIAC: Distant heart tones. Irregularly irregular rhythm VASCULAR: 2-3+ pitting edema to the knees bilateral. ABDOMEN: soft, nondistended, active bowel sounds INCISION: Surgical incision is clean, dry, and intact. There are no signs of cellulitis or infection noted. WOUNDS/DRAINS: WILLIAM drain with 7 ML's out thus far today; noted 45 ml on 05/24 MUSCULOSKELETAL: Generalized weakness/deconditioning noted. NEUROLOGIC EXAM: Alert and oriented x 3. Speech normal. Follows commands. PSYCHIATRIC: Mood normal. SKIN: No rash or lesions. - Labs 05/25/18 04:20 05/25/18 04:20 Diabetes panel 05/25/18 05/25/18 Range/Units 04:20 04:20 Sodium 126 L (136-145) mEq/L Potassium 4.4 (3.5-5.1) mEq/L Chloride 102 (98-107) mEq/L Carbon Dioxide 21 L (23-29) mEq/L BUN 33 H (8-23) mg/dL Creatinine 0.79 (0.60-1.20) mg/dL Glucose 138 H (70-105) mg/dL Calcium 8.4 L (8.6-10.3) mg/dL Triglycerides 175 H (< 150) mg/dL Calcium panel 05/25/18 05/25/18 Range/Units 04:20 04:20 Calcium 8.4 L (8.6-10.3) mg/dL Phosphorus 2.4 L (2.7-4.5) mg/dL Pituitary panel 05/25/18 Range/Units 04:20 Sodium 126 L (136-145) mEq/L Potassium 4.4 (3.5-5.1) mEq/L Chloride 102 (98-107) mEq/L Carbon Dioxide 21 L (23-29) mEq/L BUN 33 H (8-23) mg/dL Creatinine 0.79 (0.60-1.20) mg/dL Glucose 138 H (70-105) mg/dL Calcium 8.4 L (8.6-10.3) mg/dL Adrenal panel 05/25/18 Range/Units 04:20 Sodium 126 L (136-145) mEq/L Potassium 4.4 (3.5-5.1) mEq/L Chloride 102 (98-107) mEq/L Carbon Dioxide 21 L (23-29) mEq/L BUN 33 H (8-23) mg/dL Creatinine 0.79 (0.60-1.20) mg/dL Glucose 138 H (70-105) mg/dL Calcium 8.4 L (8.6-10.3) mg/dL - VTE Documentation of Mechanical Device: Intermittent pneumatic compression device Consult Discharge Plan - Plan Instructions: Adult Open Jairo Fundoplication (DC) Additional Instructions: General Instructions After Jairo Surgery 1. No pushing, pulling, or lifting greater than 15 lbs for two weeks. 2. You may shower beginning today, but no tub baths, soaking, or swimming for 2 weeks. 3. You may resume driving when you are off narcotics and are safe to react in a car. 4. Take narcotics as directed. Do not take more narcotics then directed and do not share your narcotics with any other person. Do not drink alcohol while on narcotics. 5. Take stool softeners (Colace) or a water based laxative (Miramax) while taking narcotics. You may hold for loose stools. 6. Report any fevers greater than 100.5F, increase abdominal discomfort, drainage that looks like pus, increased redness or pain at the surgical site, or any vomiting. 7. Report any pain in the calves, shortness of breath, or rapid heartbeat. 8. Continue to take your heartburn medications until directed to stop. Do not stop them abruptly as this can cause symptoms of reflux. 9. Do not drink alcohol or carbonated beverages. 10. Do not deviate from the recommended Jairo diet below. Doing so can affect your outcomes. [facility] Diet After Jairo Fundoplication Surgery This diet information is for patients who have recently had Jairo Fundoplication Surgery to correct reflux disease or to repair various types of hernias, such as hiatal hernia and intrathoracic stomach. This diet may also be used for other gastrointestinal surgeries, such as Heller myotomy and repair of achalasia. The diet will help control diarrhea, excess gas and swallowing problems, which may occur after this type of surgery. Important Steps to Keep Your Stomach From Stretching Eat small, frequent meals (six to eight per day). This will help you consume the majority of the nutrients you need without causing your stomach to feel full or distended. Drinking large amounts of fluids with meals can stretch your stomach. You may drink fluids between meals as often as you like, but limit fluids to 1/2 cup (4 fluid ounces) with meals and one cup (8 fluid ounces) with snacks. Sit upright while eating, and stay upright for 30 minutes after each meal. [place] can help food move through your digestive tract. Do not lie down after eating. Sit upright for 2 hours after your last meal or snack of the day. Eat very slowly. Take your time when eating. Take small bites and chew your food well to sheeter helper in swallowing and digestion. Avoid crusty breads and sticky, gummy foods, such as bananas, fresh doughy breads, rolls and doughnuts. These types of foods become sticky and difficult to swallow. Toasted breads tend to be better tolerated. Lastly, if you eat sweets, consume them at the end of your meal to avoid a group of symptoms referred to as dumping syndrome. This describes the rapid emptying of foods from the stomach to the small intestine. Sweetened beverages, candy and desserts move more rapidly and dump quickly into the intestines. This can cause symptoms of nausea, weakness, cold sweats, cramps, diarrhea and dizzy spells. Important Steps to Avoid Gas Do not drink through a straw, chew gum, or chew tobacco. These actions cause you to swallow air, which will produce excess gas in your stomach. Chew with your mouth closed and chew your food thoroughly. Avoid foods that cause stomach gas and distention. The foods include corn, dried beans, peas, lentils, onions, broccoli, cauliflower, and any food item from the cabbage family. Do not drink carbonated drinks, alcohol, citrus, or tomato products. What Will I Be Able To Eat and Drink After Surgery After Jairo Fundoplication Surgery, your diet will be advanced slowly by your surgeon. Generally, you will be on a thin/clear liquid diet for the first 10 days. Then you will advance to the full liquid diet for 4 days and eventually to a Jairo soft diet for 7 days. After any surgery, protein consumption is important for healing. To get enough protein, drink 3-4 [place] Instant Breakfast, Ensure, or equivalent daily. Reminder: Carbonated beverages (such as sodas, energy drinks, flavored carbonated water), and alcohol are not permitted for the 1st 6 to 8 weeks after surgery. After this time you may attempt to reintroduce them in small amounts. Please note: Dairy products such as milk, ice cream, and pudding may cause diarrhea in some people after surgery. You may need to avoid milk products. If so you may substitute them with lactose free beverages, such as soy, rice, lactate, or almond milk. Please be aware that each patient's tolerance to food is different. Your doctor will advance your diet depending on how well you progress after surgery. Thin Liquid Diet The first diet after Jairo Fundoplication Surgery is the thin liquids diet. Follow this diet for postoperative days 1-10 05/14- 05/24. Thin liquids include: Apple, Cranberry, or Grape Juice (no citrus juice) Chicken Broth Beef Broth Flavored Gelatin (Jell-O) Decaffeinated Tea or Coffee Popsicles or [place] Ice Caffeinated Beverages Will Be Permitted Based upon Tolerance and at a later date Dairy if tolerated Thin Milkshakes (strawberry or vanilla flavored- No chocolate) Drink 3-4 [place] instant breakfast, Ensure, or equivalent daily. May be mixed with dairy for thin milkshakes Full Liquid Diet Follow this diet for postoperative days -14 05/25/2018 - 05/02/2018. Full liquid diet includes anything in the thin liquid diet plus: Milk: Dairy, Soy, Rice, and [place] (No Chocolate) Cream of Wheat, Cream of Rice, Grits Strained Creamed Soups (No Tomato or Broccoli) Vanilla and [place] Flavored Ice Cream Sherbet Vanilla and Butterscotch Pudding (No Chocolate or Coconut) Continue 3-4 [place] Instant Breakfast, Ensure, or an Equivalent Daily. May be mixed with Dairy for Thin Milkshakes. Jairo Soft Diet Follow this diet for postoperative days 15-20 05/29/2018 - 06/04/2018. (If you are consuming enough protein, you may stop the protein supplements). Please note: You will need extra fluids throughout the day to meet your fluid needs. Referrals: Maxwell Ramos MD [Primary Care Provider] - (PER DR. RAMOS'S OFFICE THE PATIENT HAS TO MAKE THEIR OWN APPOINTMENT) Wiliam Connor CNP [Advanced Practice Nurse] - (OFFICE WILL CALL PATIENT AT HOME WITH FOLLOW UP APPOINTMENT)
[2018-05-25] MEDS ORDERED: OXYCODONE Oral CONC 10 MG/0.5 ML ORAL.SYG SL PRN (10:02)
[2018-05-25] MEDS ORDERED: Furosemide 40 MG/4 ML VIAL IVP ONE ×2 (10:02→12:17)
[2018-05-25] MEDS: *HR* HYDROcodone/Acet 5/325 mg TABLET PO PRN (11:31)
--- NOTE | 2018-05-25 12:22 | Internal Med Progress Note ---
Date of Encounter: 05/25/18 Time of Encounter: 12:30 - Assessment and plan (1) Gastric volvulus Current Visit: Yes Status: Acute Assessment and plan: S/P Exploratory laparotomy with reduction of gastric volvulus hiatal hernia repair Jairo fundoplication Gastropexy. POD #11. GI series done to rule out obstruction was negative for any obstruction. NG tube has been discontinued . Surgery following. Continue TPN. CT abdomen showed moderate to large left pleural effusion and no acute GI abnormalities. s/p thoracentesis on 05/22. On clear liquids. continue management per surgery (2) New onset a-fib Current Visit: Yes Status: Resolved Assessment and plan: Cardiac echo normal ejection fraction. Has been transitioned to po Cardizem and xarelto. Rate controlled (3) Leukocytosis Current Visit: Yes Status: Acute Assessment and plan: Worsening leukocytosis. Possibly secondary to pneumonia with left pleural effusion. F/U blood cultures and urinalysis. Echo showed EF of 60%. s/p thoracentesis with reomoval of about 400cc of fluid. Pleural fluid exudative based on studies. Continue zosyn. Leukocytosis trending down Qualifiers: Leukocytosis type: unspecified Qualified Code(s): D72.829 - Elevated white blood cell count, unspecified (4) Exudative pleural effusion Current Visit: Yes Status: Acute Assessment and plan: See plan for leukocytosis. Pleural fluid LDH to serum LDH ratio was 0.8 (5) Pneumonia Current Visit: Yes Status: Acute Assessment and plan: Leukocytosis with pneumonia. CT showed large left pleural effusion. s/p IR drainage with exudative effusion. Continue zosyn. WBC trending down Qualifiers: Laterality: left Lung location: lower lobe of lung Qualified Code(s): J18.1 - Lobar pneumonia, unspecified organism (6) Hyponatremia Current Visit: Yes Status: Acute Assessment and plan: Improving with normal saline. Will d/c normal saline due to lower extremity edema from clinimix and normal saline. Give one dose of lasix. Start sodium tablets (7) DVT prophylaxis Current Visit: Yes Status: Acute Assessment and plan: Heparin subcutaneous (8) Hypertension Current Visit: Yes Status: Acute Assessment and plan: Controlled Qualifiers: Hypertension type: essential hypertension Qualified Code(s): I10 - Essential (primary) hypertension Code(s): I10 - Essential (primary) hypertension SNOMED Code(s): 12697098 (9) Hypophosphatemia Current Visit: Yes Status: Acute Assessment and plan: Replaced Code(s): E83.39 - Other disorders of phosphorus metabolism - Time Spent With Patient Total time spent is greater than 50% in coordination of care (as documented) at patient's floor/unit and/or counseling patient: - Subjective Interval history: No acute events overnight - Constitutional Vitals: Temp Pulse Resp BP Pulse Ox 97.7 F 73 18 145/65 95 05/25/18 10:58 05/25/18 10:58 05/25/18 10:58 05/25/18 10:58 05/25/18 10:58 General appearance: Present: A&O X 3, pleasant, no acute distress - Head Head exam: Present: atraumatic, normocephalic - Eye Eye exam: Present: PERRL, conjuntiva pink, sclera anicteric Pupils: Present: PERRL - Neck Neck exam general surgery: Present: supple, trachea midline. Absent: lymphadenopathy - Respiratory Respiratory exam: Present: CTAB. Absent: accessory muscle use, rales, rhonchi, wheezes - Cardiovascular Cardiovascular exam: Present: RRR, +S1, +S2. Absent: diastolic murmur, gallop, rubs, systolic murmur - GI/Abdominal GI/Abdominal exam: Present: normal bowel sounds, soft, no peritoneal signs. Absent: distended, tenderness - Extremities Exam Extremities exam: Present: warm, radial pulses palpable and symmetrical. Absent : calf tenderness, cyanotic, pedal edema Additional comments: 2+ pitting edema - Neurological Exam Neurological exam: Present: CN II-XII intact, oriented X3, no focal deficits. Absent: pronater drift, facial droop, speech deficit - Skin Skin exam: Present: dry, intact Internal Medicine: Result - Labs CBC & Chem 7: 05/25/18 04:20 05/25/18 04:20 Labs: Short CBC 05/25/18 Range/Units 04:20 WBC 17.9 H (4.3-11.1) K/mcL Hgb 10.1 L (11.5-15.4) g/dL Hct 31.1 L (35.3-44.9) % Plt Count 182 (140-400) K/mcL Neutrophils # 14.7 H (1.6-8.9) K/mcL BMP 05/25/18 04:20 Sodium 126 L Potassium 4.4 Chloride 102 Carbon Dioxide 21 L BUN 33 H Creatinine 0.79 Glucose 138 H Calcium 8.4 L - ABG Interpretation ABG results: PT/INR, D-dimer PT 11.5 Seconds (9.4-12.1) 05/13/18 18:00 - VTE Documentation of Mechanical Device: Intermittent pneumatic compression device Consult Discharge Plan - Plan Instructions: Adult Open Jairo Fundoplication (DC) Additional Instructions: General Instructions After Jairo Surgery 1. No pushing, pulling, or lifting greater than 15 lbs for two weeks. 2. You may shower beginning today, but no tub baths, soaking, or swimming for 2 weeks. 3. You may resume driving when you are off narcotics and are safe to react in a car. 4. Take narcotics as directed. Do not take more narcotics then directed and do not share your narcotics with any other person. Do not drink alcohol while on narcotics. 5. Take stool softeners (Colace) or a water based laxative (Miramax) while taking narcotics. You may hold for loose stools. 6. Report any fevers greater than 100.5F, increase abdominal discomfort, drainage that looks like pus, increased redness or pain at the surgical site, or any vomiting. 7. Report any pain in the calves, shortness of breath, or rapid heartbeat. 8. Continue to take your heartburn medications until directed to stop. Do not stop them abruptly as this can cause symptoms of reflux. 9. Do not drink alcohol or carbonated beverages. 10. Do not deviate from the recommended Jairo diet below. Doing so can affect your outcomes. [facility] Diet After Jairo Fundoplication Surgery This diet information is for patients who have recently had Jairo Fundoplication Surgery to correct reflux disease or to repair various types of hernias, such as hiatal hernia and intrathoracic stomach. This diet may also be used for other gastrointestinal surgeries, such as Heller myotomy and repair of achalasia. The diet will help control diarrhea, excess gas and swallowing problems, which may occur after this type of surgery. Important Steps to Keep Your Stomach From Stretching Eat small, frequent meals (six to eight per day). This will help you consume the majority of the nutrients you need without causing your stomach to feel full or distended. Drinking large amounts of fluids with meals can stretch your stomach. You may drink fluids between meals as often as you like, but limit fluids to 1/2 cup (4 fluid ounces) with meals and one cup (8 fluid ounces) with snacks. Sit upright while eating, and stay upright for 30 minutes after each meal. [place] can help food move through your digestive tract. Do not lie down after eating. Sit upright for 2 hours after your last meal or snack of the day. Eat very slowly. Take your time when eating. Take small bites and chew your food well to test department helper in swallowing and digestion. Avoid crusty breads and sticky, gummy foods, such as bananas, fresh doughy breads, rolls and doughnuts. These types of foods become sticky and difficult to swallow. Toasted breads tend to be better tolerated. Lastly, if you eat sweets, consume them at the end of your meal to avoid a group of symptoms referred to as dumping syndrome. This describes the rapid emptying of foods from the stomach to the small intestine. Sweetened beverages, candy and desserts move more rapidly and dump quickly into the intestines. This can cause symptoms of nausea, weakness, cold sweats, cramps, diarrhea and dizzy spells. Important Steps to Avoid Gas Do not drink through a straw, chew gum, or chew tobacco. These actions cause you to swallow air, which will produce excess gas in your stomach. Chew with your mouth closed and chew your food thoroughly. Avoid foods that cause stomach gas and distention. The foods include corn, dried beans, peas, lentils, onions, broccoli, cauliflower, and any food item from the cabbage family. Do not drink carbonated drinks, alcohol, citrus, or tomato products. What Will I Be Able To Eat and Drink After Surgery After Jairo Fundoplication Surgery, your diet will be advanced slowly by your surgeon. Generally, you will be on a thin/clear liquid diet for the first 10 days. Then you will advance to the full liquid diet for 4 days and eventually to a Jairo soft diet for 7 days. After any surgery, protein consumption is important for healing. To get enough protein, drink 3-4 [place] Instant Breakfast, Ensure, or equivalent daily. Reminder: Carbonated beverages (such as sodas, energy drinks, flavored carbonated water), and alcohol are not permitted for the 1st 6 to 8 weeks after surgery. After this time you may attempt to reintroduce them in small amounts. Please note: Dairy products such as milk, ice cream, and pudding may cause diarrhea in some people after surgery. You may need to avoid milk products. If so you may substitute them with lactose free beverages, such as soy, rice, lactate, or almond milk. Please be aware that each patient's tolerance to food is different. Your doctor will advance your diet depending on how well you progress after surgery. Thin Liquid Diet The first diet after Jairo Fundoplication Surgery is the thin liquids diet. Follow this diet for postoperative days 1-10 05/14- 05/24. Thin liquids include: Apple, Cranberry, or Grape Juice (no citrus juice) Chicken Broth Beef Broth Flavored Gelatin (Jell-O) Decaffeinated Tea or Coffee Popsicles or [place] Ice Caffeinated Beverages Will Be Permitted Based upon Tolerance and at a later date Dairy if tolerated Thin Milkshakes (strawberry or vanilla flavored- No chocolate) Drink 3-4 [place] instant breakfast, Ensure, or equivalent daily. May be mixed with dairy for thin milkshakes Full Liquid Diet Follow this diet for postoperative days 11-14 05/25/2018 - 05/02/2018. Full liquid diet includes anything in the thin liquid diet plus: Milk: Dairy, Soy, Rice, and [place] (No Chocolate) Cream of Wheat, Cream of Rice, Grits Strained Creamed Soups (No Tomato or Broccoli) Vanilla and [place] Flavored Ice Cream Sherbet Vanilla and Butterscotch Pudding (No Chocolate or Coconut) Continue 3-4 [place] Instant Breakfast, Ensure, or an Equivalent Daily. May be mixed with Dairy for Thin Milkshakes. Jairo Soft Diet Follow this diet for postoperative days 15-20 05/29/2018 - 06/04/2018. (If you are consuming enough protein, you may stop the protein supplements). Please note: You will need extra fluids throughout the day to meet your fluid needs. Referrals: Maxwell Ramso MD [Primary Care Provider] - (PER DR. RAMOS'S OFFICE THE PATIENT HAS TO MAKE THEIR OWN APPOINTMENT) Wiliam Connor, [employer] [Advanced Practice Nurse] - (OFFICE WILL CALL PATIENT AT HOME WITH FOLLOW UP APPOINTMENT)
[2018-05-25] MEDS ORDERED: Clinimix E 5%-15% SOLUTION 2,000 ML with MVI, adult with vitamin K 10 ML IVC SCH (17:00)
[2018-05-25] MEDS: Ibuprofen 600 MG TABLET PO PRN (17:33)
[2018-05-25] MEDS: *HR* Rivaroxaban 15 MG TABLET PO SCH (17:33)
[2018-05-26] MEDS: Insulin LISPRO 300 UNITS/3 ML VIAL SQ SCH ×5 (04:22→20:10)
[2018-05-26 05:14] LABS: Hematocrit 26.4 % (35.3-44.9); Hemoglobin 8.6 g/dL (11.5-15.4); Mean Corpuscular HGB Conc 32.6 g/dL (31.6-35.5); Mean Corpuscular Hemoglobin 29.5 pg (28.0-33.3); Mean Corpuscular Volume 90.4 fL (83.0-100.0); Mean Platelet Volume 9.8 fL (9.4-12.4); Platelet Count 196 K/mcL (140-400); Red Blood Count 2.92 M/mcL (3.82-4.97); Red Cell Distribution Width 14.2 % (11.5-14.5)
[2018-05-26 05:37] LABS: BUN/Creatinine Ratio 41 (6-26); Blood Urea Nitrogen 34 mg/dL (8-23); Carbon Dioxide 21 mEq/L (23-29); Chloride 102 mEq/L (98-107); Glucose 121 mg/dL (70-105); Magnesium 1.9 mg/dL (1.6-2.6); Osmolality,Calculated 273 (280-300); Potassium 3.9 mEq/L (3.5-5.1); Sodium 127 mEq/L (136-145); eGFR For African Americans > 60 (> 60); eGFR For Non-African Americans > 60 (> 60)
[2018-05-26 05:52] LABS: Eosinophils # 0.3 K/mcL (0.0-0.6); Lymphocytes # 2.5 K/mcL (0.6-4.6); Monocytes # 0.3 K/mcL (0.0-1.3); Neutrophils # 10.4 K/mcL (1.6-8.9); Platelet Estimate Normal (Normal)
[2018-05-26] MEDS: Metoclopramide 10 MG/2 ML VIAL IVP SCH (05:52)
[2018-05-26 05:53] LABS: Large Platelets Present (Not Present); Reactive Lymphocytes Present (Not Present)
[2018-05-26] MEDS ORDERED: Acetaminophen 325 MG TABLET PO PRN (08:39)
[2018-05-26] MEDS ORDERED: OXYCODONE Oral CONC 10 MG/0.5 ML ORAL.SYG SL PRN (08:40)
[2018-05-26] MEDS: Diltiazem CD (24hr) 120 MG CAPSULE PO SCH (09:13)
[2018-05-26] MEDS: *HR* HYDROcodone/Acet 5/325 mg TABLET PO PRN ×2 (09:13→22:06)
[2018-05-26] MEDS: Pantoprazole 40 MG VIAL IVP SCH (09:13)
[2018-05-26] MEDS: Piperacillin/Tazobactam 3.375 GM in 0.9 % Sodium Chloride Mini Bag 100 ML IVPB SCH ×2 (09:14→17:48)
--- NOTE | 2018-05-26 11:28 | General Surgery Progress Note ---
Date of Encounter: 05/26/18 Time of Encounter: 11:27 - Assessment and Plan (1) Gastric volvulus Current Visit: Yes Status: Acute POD #12 Exploratory laparotomy with reduction of gastric volvulus, hiatal hernia repair, Jairo fundoplication, Gastropexy with Dr. Price Pathology reviewed; Complete UGI 05/19/18- no leak or reflux noted; Ct 05/21 no acute abd pathology NG tube removed 05/19/18 She states she is tolerating her FLD and protein supplments and denies symptoms of nausea, reflux, or difficulty swallowing. 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 Plan: FLD, no carbonation (do not advance past FLD unless directed by surgery) Ensure clear TID Stop TPN D/C WILLIAM drain Continue supportive care and discomfort management Continue miralax until daily BMs. PPI therapy daily Incentive spirometer every 1 hour while awake Out of bed to chair for ALL trays PT/OT following. Encourage frequent ambulation with assistance WBC downtrending per primary management. Dispo per primary team. surgical f/u has been made. Anticipate florencia could be removed at follow-up 06/08/2018 unless irritation or local reaction occur, then could d/c after 05/30. (2) Leg edema Current Visit: Yes Status: Acute BLLE edema 2-3+ pitting edema Management per primary team. No surgical indication to withhold diuresis at this time; reviewed with bedside RN (3) Pleural effusion Current Visit: Yes Status: Acute see above (4) Atrial fibrillation with controlled ventricular rate Current Visit: Yes Status: Acute per primary team Subjective Patient reports: no new complaints, pain is less, tolerating liquids well, voiding w/o difficulty (per borrero), flatus, bowel movement, afebrile Objective Vital Signs - Last 8 Hours Temp Pulse Resp BP Pulse Ox 05/26/18 10:40 98.4 F 80 18 116/65 94 05/26/18 07:08 98.4 F 84 17 106/62 92 05/26/18 03:39 99.0 F 75 16 116/67 94 Intake and Output 05/25/18 05/26/18 05/26/18 23:59 07:59 15:59 Intake Total 100 / 100 100 / 100 Output Total 1560 / 1560 450 / 450 Balance 100 / 100 -1460 / -1460 -450 / -450 Intake: IV Fluids 100 / 100 100 / 100 Zosyn 3.375 GM In 0.9 % Sodium 100 / 100 100 / 100 Chloride (Mini-Bag +) 100 ML @ 25 mls/hr IVPB Q8HR [facility] Rx#: [id number] Output: Catheter 1550 / 1550 450 / 450 Wound Drainage 10 / 10 Lower Abdomen 10 / 10 Other: Meal Dinner Percent of Meal Consumed 45% Weight 111.7 kg Blood Glucose* 124 114 112 VITAL SIGNS: Reviewed. See [facility] GENERAL: In no apparent distress. HEENT: Normocephalic, atraumatic, pupils are equal and reactive, extraocular motions intact, oropharynx is pink and moist, there is no neck adenopathy. There is some JVD noted. CHEST/RESPIRATORY: The thorax is free from signs of trauma. Lung sounds: Decreased but clear CARDIAC: Distant heart tones. Irregularly irregular rhythm VASCULAR: pitting edema BLLE. ABDOMEN: soft, nondistended, active bowel sounds INCISION: Surgical incision is clean, dry, and intact. There are no signs of cellulitis or infection noted. WOUNDS/DRAINS: WILLIAM drain with <10 ML's MUSCULOSKELETAL: Generalized weakness/deconditioning noted. NEUROLOGIC EXAM: Alert and oriented x 3. Speech normal. Follows commands. PSYCHIATRIC: Mood normal. SKIN: No rash or lesions. - Labs 05/26/18 04:54 05/26/18 04:54 Diabetes panel 05/26/18 Range/Units 04:54 Sodium 127 L (136-145) mEq/L Potassium 3.9 (3.5-5.1) mEq/L Chloride 102 (98-107) mEq/L Carbon Dioxide 21 L (23-29) mEq/L BUN 34 H (8-23) mg/dL Creatinine 0.82 (0.60-1.20) mg/dL Glucose 121 H (70-105) mg/dL Calcium 8.0 L (8.6-10.3) mg/dL Calcium panel 05/26/18 Range/Units 04:54 Calcium 8.0 L (8.6-10.3) mg/dL Phosphorus 3.0 (2.7-4.5) mg/dL Pituitary panel 05/26/18 Range/Units 04:54 Sodium 127 L (136-145) mEq/L Potassium 3.9 (3.5-5.1) mEq/L Chloride 102 (98-107) mEq/L Carbon Dioxide 21 L (23-29) mEq/L BUN 34 H (8-23) mg/dL Creatinine 0.82 (0.60-1.20) mg/dL Glucose 121 H (70-105) mg/dL Calcium 8.0 L (8.6-10.3) mg/dL Adrenal panel 05/26/18 Range/Units 04:54 Sodium 127 L (136-145) mEq/L Potassium 3.9 (3.5-5.1) mEq/L Chloride 102 (98-107) mEq/L Carbon Dioxide 21 L (23-29) mEq/L BUN 34 H (8-23) mg/dL Creatinine 0.82 (0.60-1.20) mg/dL Glucose 121 H (70-105) mg/dL Calcium 8.0 L (8.6-10.3) mg/dL - VTE Documentation of Mechanical Device: Intermittent pneumatic compression device Consult Discharge Plan - Plan Instructions: Adult Open Jairo Fundoplication (DC) Additional Instructions: General Instructions After Jairo Surgery 1. No pushing, pulling, or lifting greater than 15 lbs for two weeks. 2. You may shower beginning today, but no tub baths, soaking, or swimming for 2 weeks. 3. You may resume driving when you are off narcotics and are safe to react in a car. 4. Take narcotics as directed. Do not take more narcotics then directed and do not share your narcotics with any other person. Do not drink alcohol while on narcotics. 5. Take stool softeners (Colace) or a water based laxative (Miramax) while taking narcotics. You may hold for loose stools. 6. Report any fevers greater than 100.5F, increase abdominal discomfort, drainage that looks like pus, increased redness or pain at the surgical site, or any vomiting. 7. Report any pain in the calves, shortness of breath, or rapid heartbeat. 8. Continue to take your heartburn medications until directed to stop. Do not stop them abruptly as this can cause symptoms of reflux. 9. Do not drink alcohol or carbonated beverages. 10. Do not deviate from the recommended Jairo diet below. Doing so can affect your outcomes. [place] [facility] Diet After Jairo Fundoplication Surgery This diet information is for patients who have recently had Jairo Fundoplication Surgery to correct reflux disease or to repair various types of hernias, such as hiatal hernia and intrathoracic stomach. This diet may also be used for other gastrointestinal surgeries, such as Heller myotomy and repair of achalasia. The diet will help control diarrhea, excess gas and swallowing problems, which may occur after this type of surgery. Important Steps to Keep Your Stomach From Stretching Eat small, frequent meals (six to eight per day). This will help you consume the majority of the nutrients you need without causing your stomach to feel full or distended. Drinking large amounts of fluids with meals can stretch your stomach. You may drink fluids between meals as often as you like, but limit fluids to 1/2 cup (4 fluid ounces) with meals and one cup (8 fluid ounces) with snacks. Sit upright while eating, and stay upright for 30 minutes after each meal. [place] can help food move through your digestive tract. Do not lie down after eating. Sit upright for 2 hours after your last meal or snack of the day. Eat very slowly. Take your time when eating. Take small bites and chew your food well to help desk engineer in swallowing and digestion. Avoid crusty breads and sticky, gummy foods, such as bananas, fresh doughy breads, rolls and doughnuts. These types of foods become sticky and difficult to swallow. Toasted breads tend to be better tolerated. Lastly, if you eat sweets, consume them at the end of your meal to avoid a group of symptoms referred to as dumping syndrome. This describes the rapid emptying of foods from the stomach to the small intestine. Sweetened beverages, candy and desserts move more rapidly and dump quickly into the intestines. This can cause symptoms of nausea, weakness, cold sweats, cramps, diarrhea and dizzy spells. Important Steps to Avoid Gas Do not drink through a straw, chew gum, or chew tobacco. These actions cause you to swallow air, which will produce excess gas in your stomach. Chew with your mouth closed and chew your food thoroughly. Avoid foods that cause stomach gas and distention. The foods include corn, dried beans, peas, lentils, onions, broccoli, cauliflower, and any food item from the cabbage family. Do not drink carbonated drinks, alcohol, citrus, or tomato products. What Will I Be Able To Eat and Drink After Surgery After Jairo Fundoplication Surgery, your diet will be advanced slowly by your surgeon. Generally, you will be on a thin/clear liquid diet for the first 10 days. Then you will advance to the full liquid diet for 4 days and eventually to a Jairo soft diet for 7 days. After any surgery, protein consumption is important for healing. To get enough protein, drink 3-4 [place] Instant Breakfast, Ensure, or equivalent daily. Reminder: Carbonated beverages (such as sodas, energy drinks, flavored carbonated water), and alcohol are not permitted for the 1st 6 to 8 weeks after surgery. After this time you may attempt to reintroduce them in small amounts. Please note: Dairy products such as milk, ice cream, and pudding may cause diarrhea in some people after surgery. You may need to avoid milk products. If so you may substitute them with lactose free beverages, such as soy, rice, lactate, or almond milk. Please be aware that each patient's tolerance to food is different. Your doctor will advance your diet depending on how well you progress after surgery. Thin Liquid Diet The first diet after Jairo Fundoplication Surgery is the thin liquids diet. Follow this diet for postoperative days 1-10 05/14- 05/24. Thin liquids include: Apple, Cranberry, or Grape Juice (no citrus juice) Chicken Broth Beef Broth Flavored Gelatin (Jell-O) Decaffeinated Tea or Coffee Popsicles or [place] Ice Caffeinated Beverages Will Be Permitted Based upon Tolerance and at a later date Dairy if tolerated Thin Milkshakes (strawberry or vanilla flavored- No chocolate) Drink 3-4 [place] instant breakfast, Ensure, or equivalent daily. May be mixed with dairy for thin milkshakes Full Liquid Diet Follow this diet for postoperative days -14 05/25/2018 - 05/02/2018. Full liquid diet includes anything in the thin liquid diet plus: Milk: Dairy, Soy, Rice, and [place] (No Chocolate) Cream of Wheat, Cream of Rice, Grits Strained Creamed Soups (No Tomato or Broccoli) Vanilla and [place] Flavored Ice Cream Sherbet Vanilla and Butterscotch Pudding (No Chocolate or Coconut) Continue 3-4 [place] Instant Breakfast, Ensure, or an Equivalent Daily. May be mixed with Dairy for Thin Milkshakes. Jairo Soft Diet Follow this diet for postoperative days 15-20 05/29/2018 - 06/04/2018. (If you are consuming enough protein, you may stop the protein supplements). Please note: You will need extra fluids throughout the day to meet your fluid needs. Referrals: Maxwell Ramos MD [Primary Care Provider] - (PER DR. RAMOS'S OFFICE THE PATIENT HAS TO MAKE THEIR OWN APPOINTMENT) Wiliam Connor CNP [Advanced Practice Nurse] - (OFFICE WILL CALL PATIENT AT HOME WITH FOLLOW UP APPOINTMENT) Day Katz CNP [Advanced Practice Nurse] - 06/08/18 1:45 pm
[2018-05-26] MEDS ORDERED: Metoclopramide 10 MG/2 ML VIAL IVP SCH (11:30)
--- NOTE | 2018-05-26 14:43 | Internal Med Progress Note ---
Date of Encounter: 05/26/18 Time of Encounter: 14:40 - Assessment and plan (1) Gastric volvulus Current Visit: Yes Status: Acute Assessment and plan: POD #12 s/p exploratory laparotomy with reduction of gastric volvulus, hiatal hernia repair, Jairo fundoplication, and gastropexy. Surgery consulted; appreciate input. WILLIAM drain pulled today. TPN discontinued and full liquid diet started. Will await further recommendations per surgery. Recheck labwork in AM. (2) New onset a-fib Current Visit: Yes Status: Resolved Assessment and plan: Resolved. ECHO with normal ejection fraction. Continue PO Cardizem and xarelto. (3) Pneumonia Current Visit: Yes Status: Acute Assessment and plan: Leukocytosis improving. Continue IV zosyn. Qualifiers: Laterality: left Lung location: lower lobe of lung Qualified Code(s): J18.1 - Lobar pneumonia, unspecified organism (4) Exudative pleural effusion Current Visit: Yes Status: Acute Assessment and plan: S/P thoracentesis. Continue to monitor. (5) Leukocytosis Current Visit: Yes Status: Acute Assessment and plan: Improving. Management of pneumonia as per above. Recheck CBC in AM. Qualifiers: Leukocytosis type: unspecified Qualified Code(s): D72.829 - Elevated white blood cell count, unspecified (6) Hypertension Current Visit: Yes Status: Chronic Assessment and plan: Continue home medications. Qualifiers: Hypertension type: essential hypertension Qualified Code(s): I10 - Essential (primary) hypertension Code(s): I10 - Essential (primary) hypertension SNOMED Code(s): 11816851 (7) Hypophosphatemia Current Visit: Yes Status: Resolved Assessment and plan: Resolved. Continue to monitor. Code(s): E83.39 - Other disorders of phosphorus metabolism (8) Hyponatremia Current Visit: Yes Status: Acute Assessment and plan: Improving. Continue sodium tablets until tolerating good PO. Recheck BMP in AM. (9) DVT prophylaxis Current Visit: Yes Status: Acute Assessment and plan: Continue home xarelto and SCDs. - Time Spent With Patient Total time spent is greater than 50% in coordination of care (as documented) at patient's floor/unit and/or counseling patient: - Subjective Interval history: Patient had no acute events overnight. She states that she is feeling "pretty good" today. She states pain is well-controlled. She denies nausea and vomiting. She ate oatmeal this AM and potato soup this afternoon without any issues. She denies fever, chills, chest pain, and SOB. She has no other complaints at this time. - Constitutional Vitals: Temp Pulse Resp BP Pulse Ox 98.4 F 80 18 116/65 94 05/26/18 10:40 05/26/18 10:40 05/26/18 10:40 05/26/18 10:40 05/26/18 10:40 General appearance: Present: cooperative, A&O X 3, pleasant, no acute distress, answers questions appropriately - Respiratory Respiratory exam: Present: CTAB. Absent: accessory muscle use, rales, rhonchi, wheezes - Cardiovascular Cardiovascular exam: Present: RRR, +S1, +S2. Absent: diastolic murmur, gallop, rubs, systolic murmur Additional comments: No BLE edema - GI/Abdominal GI/Abdominal exam: Present: normal bowel sounds, soft. Absent: distended, hepatomegaly, mass, splenomegaly, tenderness Additional comments: Surgical incision intact without signs of infection - Psychiatric Psychiatric exam: Present: normal affect, normal mood. Absent: agitated, anxious, depressed - Skin Skin exam: Present: dry, warm. Absent: cyanosis, rash Internal Medicine: Result - Labs CBC & Chem 7: 05/26/18 04:54 05/26/18 04:54 Labs: Short CBC 05/26/18 Range/Units 04:54 WBC 14.0 H (4.3-11.1) K/mcL Hgb 8.6 L D (11.5-15.4) g/dL Hct 26.4 L (35.3-44.9) % Plt Count 196 (140-400) K/mcL Neutrophils # 10.4 H (1.6-8.9) K/mcL BMP 05/26/18 04:54 Sodium 127 L Potassium 3.9 Chloride 102 Carbon Dioxide 21 L BUN 34 H Creatinine 0.82 Glucose 121 H Calcium 8.0 L - ABG Interpretation ABG results: PT/INR, D-dimer PT 11.5 Seconds (9.4-12.1) 05/13/18 18:00 - VTE Documentation of Mechanical Device: Intermittent pneumatic compression device Contraindication No Overlap Therapy: Admin of oral Factor Xa Inhibitor Consult Discharge Plan - Plan Instructions: Adult Open Jairo Fundoplication (DC) Additional Instructions: General Instructions After Jairo Surgery 1. No pushing, pulling, or lifting greater than 15 lbs for two weeks. 2. You may shower beginning today, but no tub baths, soaking, or swimming for 2 weeks. 3. You may resume driving when you are off narcotics and are safe to react in a car. 4. Take narcotics as directed. Do not take more narcotics then directed and do not share your narcotics with any other person. Do not drink alcohol while on narcotics. 5. Take stool softeners (Colace) or a water based laxative (Miramax) while taking narcotics. You may hold for loose stools. 6. Report any fevers greater than 100.5F, increase abdominal discomfort, drainage that looks like pus, increased redness or pain at the surgical site, or any vomiting. 7. Report any pain in the calves, shortness of breath, or rapid heartbeat. 8. Continue to take your heartburn medications until directed to stop. Do not stop them abruptly as this can cause symptoms of reflux. 9. Do not drink alcohol or carbonated beverages. 10. Do not deviate from the recommended Jairo diet below. Doing so can affect your outcomes. [place] [facility] Diet After Jairo Fundoplication Surgery This diet information is for patients who have recently had Jairo Fundoplication Surgery to correct reflux disease or to repair various types of hernias, such as hiatal hernia and intrathoracic stomach. This diet may also be used for other gastrointestinal surgeries, such as Heller myotomy and repair of achalasia. The diet will help control diarrhea, excess gas and swallowing problems, which may occur after this type of surgery. Important Steps to Keep Your Stomach From Stretching Eat small, frequent meals (six to eight per day). This will help you consume the majority of the nutrients you need without causing your stomach to feel full or distended. Drinking large amounts of fluids with meals can stretch your stomach. You may drink fluids between meals as often as you like, but limit fluids to 1/2 cup (4 fluid ounces) with meals and one cup (8 fluid ounces) with snacks. Sit upright while eating, and stay upright for 30 minutes after each meal. [place] can help food move through your digestive tract. Do not lie down after eating. Sit upright for 2 hours after your last meal or snack of the day. Eat very slowly. Take your time when eating. Take small bites and chew your food well to diver helper in swallowing and digestion. Avoid crusty breads and sticky, gummy foods, such as bananas, fresh doughy breads, rolls and doughnuts. These types of foods become sticky and difficult to swallow. Toasted breads tend to be better tolerated. Lastly, if you eat sweets, consume them at the end of your meal to avoid a group of symptoms referred to as dumping syndrome. This describes the rapid emptying of foods from the stomach to the small intestine. Sweetened beverages, candy and desserts move more rapidly and dump quickly into the intestines. This can cause symptoms of nausea, weakness, cold sweats, cramps, diarrhea and dizzy spells. Important Steps to Avoid Gas Do not drink through a straw, chew gum, or chew tobacco. These actions cause you to swallow air, which will produce excess gas in your stomach. Chew with your mouth closed and chew your food thoroughly. Avoid foods that cause stomach gas and distention. The foods include corn, dried beans, peas, lentils, onions, broccoli, cauliflower, and any food item from the cabbage family. Do not drink carbonated drinks, alcohol, citrus, or tomato products. What Will I Be Able To Eat and Drink After Surgery After Jairo Fundoplication Surgery, your diet will be advanced slowly by your surgeon. Generally, you will be on a thin/clear liquid diet for the first 10 days. Then you will advance to the full liquid diet for 4 days and eventually to a Jairo soft diet for 7 days. After any surgery, protein consumption is important for healing. To get enough protein, drink 3-4 [place] Instant Breakfast, Ensure, or equivalent daily. Reminder: Carbonated beverages (such as sodas, energy drinks, flavored carbonated water), and alcohol are not permitted for the 1st 6 to 8 weeks after surgery. After this time you may attempt to reintroduce them in small amounts. Please note: Dairy products such as milk, ice cream, and pudding may cause diarrhea in some people after surgery. You may need to avoid milk products. If so you may substitute them with lactose free beverages, such as soy, rice, lactate, or almond milk. Please be aware that each patient's tolerance to food is different. Your doctor will advance your diet depending on how well you progress after surgery. Thin Liquid Diet The first diet after Jairo Fundoplication Surgery is the thin liquids diet. Follow this diet for postoperative days 1-10 05/14- 05/24. Thin liquids include: Apple, Cranberry, or Grape Juice (no citrus juice) Chicken Broth Beef Broth Flavored Gelatin (Jell-O) Decaffeinated Tea or Coffee Popsicles or [place] Ice Caffeinated Beverages Will Be Permitted Based upon Tolerance and at a later date Dairy if tolerated Thin Milkshakes (strawberry or vanilla flavored- No chocolate) Drink 3-4 [place] instant breakfast, Ensure, or equivalent daily. May be mixed with dairy for thin milkshakes Full Liquid Diet Follow this diet for postoperative days 11-14 05/25/2018 - 05/02/2018. Full liquid diet includes anything in the thin liquid diet plus: Milk: Dairy, Soy, Rice, and [place] (No Chocolate) Cream of Wheat, Cream of Rice, Grits Strained Creamed Soups (No Tomato or Broccoli) Vanilla and [place] Flavored Ice Cream Sherbet Vanilla and Butterscotch Pudding (No Chocolate or Coconut) Continue 3-4 [place] Instant Breakfast, Ensure, or an Equivalent Daily. May be mixed with Dairy for Thin Milkshakes. Jairo Soft Diet Follow this diet for postoperative days 15-20 05/29/2018 - 06/04/2018. (If you are consuming enough protein, you may stop the protein supplements). Please note: You will need extra fluids throughout the day to meet your fluid needs. Referrals: Maxwell Ramos MD [Primary Care Provider] - (PER DR. RAMOS'S OFFICE THE PATIENT HAS TO MAKE THEIR OWN APPOINTMENT) Wiliam Connor CNP [Advanced Practice Nurse] - (OFFICE WILL CALL PATIENT AT HOME WITH FOLLOW UP APPOINTMENT) Day Katz CNP [Advanced Practice Nurse] - 06/08/18 1:45 pm
[2018-05-26] MEDS: *HR* Rivaroxaban 10 MG TABLET PO SCH (17:48)
[2018-05-26] MEDS: Ibuprofen 600 MG TABLET PO PRN (17:48)
[2018-05-27] MEDS: Insulin LISPRO 300 UNITS/3 ML VIAL SQ SCH ×5 (00:27→17:11)
[2018-05-27] MEDS: Piperacillin/Tazobactam 3.375 GM in 0.9 % Sodium Chloride Mini Bag 100 ML IVPB SCH ×2 (01:07→09:50)
[2018-05-27 04:26] LABS: Basophils % 0.4 %; Eosinophils # 0.1 K/mcL (0.0-0.6); Eosinophils % 0.5 %; Hematocrit 25.6 % (35.3-44.9); Hemoglobin 8.4 g/dL (11.5-15.4); Immature Granulocytes % 7.9 % (0-4); Lymphocytes # 1.6 K/mcL (0.6-4.6); Lymphocytes % 15.1 %; Mean Corpuscular HGB Conc 32.8 g/dL (31.6-35.5); Mean Corpuscular Hemoglobin 29.9 pg (28.0-33.3); Mean Corpuscular Volume 91.1 fL (83.0-100.0); Mean Platelet Volume 9.5 fL (9.4-12.4); Monocytes # 0.8 K/mcL (0.0-1.3); Nucleated Red Blood Cells 0.2 /100 WBC (0); Platelet Count 215 K/mcL (140-400); Red Blood Count 2.81 M/mcL (3.82-4.97); Red Cell Distribution Width 14.2 % (11.5-14.5); Segmented Neutrophils % 68.1 %
[2018-05-27 04:28] LABS: Neutrophils # 7.2 K/mcL (1.6-8.9)
[2018-05-27 04:46] LABS: BUN/Creatinine Ratio 34 (6-26); Blood Urea Nitrogen 28 mg/dL (8-23); Calcium 7.9 mg/dL (8.6-10.3); Carbon Dioxide 22 mEq/L (23-29); Chloride 106 mEq/L (98-107); Glucose 89 mg/dL (70-105); Osmolality,Calculated 281 (280-300); Potassium 3.8 mEq/L (3.5-5.1); Sodium 133 mEq/L (136-145); eGFR For African Americans > 60 (> 60); eGFR For Non-African Americans > 60 (> 60)
[2018-05-27 04:50] LABS: Platelet Estimate Normal (Normal); Reactive Lymphocytes Present (Not Present); Toxic Granulation Present (Not Present)
[2018-05-27] MEDS: Diltiazem CD (24hr) 120 MG CAPSULE PO SCH (09:51)
--- NOTE | 2018-05-27 11:50 | Discharge Summary ---
- NOTES TO OUTPATIENT PROVIDER Notes to Outpatient Provider: Follow up with ECF physician in 2-3 days after discharge. Recheck BMP and CBC at that time. Follow up with surgery as directed. Orders not resulted at time of discharge: Pending orders 05/14/18 07:09 EKG [ECG 12 lead ECG] [ECG] Stat 05/28/18 04:00 Basic Metabolic Panel AM 0400 Date of Encounter: 05/27/18 Time of Encounter: 11:48 - Discharge Diagnosis (1) Gastric volvulus Priority: Primary Status: Resolved (2) New onset a-fib Priority: Secondary Status: Resolved (3) Pneumonia Priority: Secondary Status: Acute Qualifiers: Laterality: left Lung location: lower lobe of lung Qualified Code(s): J18.1 - Lobar pneumonia, unspecified organism (4) Exudative pleural effusion Priority: Secondary Status: Acute (5) Leukocytosis Priority: Secondary Status: Resolved Qualifiers: Leukocytosis type: unspecified Qualified Code(s): D72.829 - Elevated white blood cell count, unspecified (6) Hypertension Priority: Secondary Status: Chronic Qualifiers: Hypertension type: essential hypertension Qualified Code(s): I10 - Essential (primary) hypertension Code(s): I10 - Essential (primary) hypertension SNOMED Code(s): 41902322 (7) Hypophosphatemia Priority: Secondary Status: Resolved Code(s): E83.39 - Other disorders of phosphorus metabolism (8) Hyponatremia Priority: Secondary Status: Resolved (9) DVT prophylaxis Priority: Secondary Status: Acute Hospital course: Ms. Wolf is a 77 year old female admitted for abdominal pain, nausea, and vomiting secondary to gastric volvulus, and new onset Afib. She was admitted to general medical floor with telemetry. NG tube was placed and made NPO. She was started on IVF, anti-emetics, and pain medications. Surgery was consulted. She was started on cardizem and xarelto for AFib. ECHO showed normal EF without any other abnormalities. She had exploratory laparotomy with reduction of gastric volvulus, hiatal hernia repair, Jairo fundoplication, and gastropexy. Hospital stay was complicated by leukocytosis, pneumonia, and plueral effusion. IR was consulted and performed thoracentesis, which showed exudative fluid. She was started on IV zosyn for pneumonia. Leukocytosis slowly improved. She received sodium tablets for hyponatremia, which resolved with starting diet. PT/OT were consulted and worked with patient. Patient is agreeable to going to ECF. Surgery started her on PPI and slowly advanced her to clear liquid diet. She is tolerating diet without issues on day of discharge. She was transitioned to PO augmentin to complete 7 days total for pneumonia. She will follow up with surgery as directed for suture removal. Patient has met maximum benefit of this hospitalization and will be discharged to ECF pending acceptance in stable condition. Discharge discussed with: patient, nurse, social work, other (Pharmacist) - Time Spent with Patient Total time spent providing and/or coordinating discharge services: Greater than 30 minutes - Discharge Medications Prescriptions: HYDROcodone/Acet 5/325 mg [[place] 5-325 mg] 1 tab PO Q4HR PRN 4 Days #24 tablet PRN Reason: Severe Pain Amoxicillin/Clavulanate [Augmentin] 875 mg PO BIDWM #5 tablet Diltiazem CD (24hr) [Cardizem CD] 120 mg PO DAILY 4 Days #4 cap.er.24h Omeprazole [PriLOSEC] 40 mg PO DAILY@0730 4 Days #4 capsule. Rivaroxaban [Xarelto] 20 mg PO 1700 4 Days #4 tablet Home Medications: Levothyroxine Sodium 75 mcg PO 0630 01/09/18 [History] Simvastatin [Zocor] 10 mg PO HS 01/09/18 [History] Ondansetron ODT [Zofran ODT] 4 mg SL Q6HR PRN #10 tab.rapdis 05/11/18 [Rx] Lisinopril-HCTZ 10-12.5 [Prinzide 10-12.5] 1 tab PO DAILY 05/13/18 [History] Tramadol HCl [Ultram] 50 mg PO HS 05/13/18 [History] Amoxicillin/Clavulanate [Augmentin] 875 mg PO BIDWM #5 tablet 05/27/18 [Rx] Diltiazem CD (24hr) [Cardizem CD] 120 mg PO DAILY 4 Days #4 cap.er.24h 05/27/18 [Rx] HYDROcodone/Acet 5/325 mg [[place] 5-325 mg] 1 tab PO Q4HR PRN 4 Days #24 tablet 05/27/18 [Rx] Omeprazole [PriLOSEC] 40 mg PO DAILY@0730 4 Days #4 capsule. 05/27/18 [Rx] Rivaroxaban [Xarelto] 20 mg PO 1700 4 Days #4 tablet 05/27/18 [Rx] Allergies/Adverse Reactions: 3 Allergy/AdvReac Type Severity Reaction Status Date / Time tramadol AdvReac Dizziness Verified 05/13/18 20:27 Date of admission: 05/13/18 23:54 Primary care physician: Maxwell Ramos MD Consults: 05/18/18 08:43 Consult to Occupational Therapy [CONS] Routine Comment: Evaluate, develop and implement POC Reason for Consult: s/p abdominal surgery, ambulating with walker prior to surgery Does patient have active BEDREST order?: No Is patient medically & hemodynamically stable?: Yes Consult to Physical Therapy [CONS] Routine Comment: Evaluate, develop and implement POC Reason for Consult: s/p abdominal surgery, ambulating with walker prior to surgery Does patient have active BEDREST order?: No Is patient medically & hemodynamically stable?: Yes Consult to Accounts Receivable Manager [CONS] Routine Reason for SW Consult: s/p abdominal surgery. Eval for discharge planning: HH vs ECF 05/18/18 10:28 Consult to Invasive Line Access Team [CONS] Routine Reason for Consult: Picc Line Insertion Line Type: PICC PICC line indications: Parental nutrition Time Notified: 10:29 Call Completed: Yes 05/18/18 10:30 consult to valuation manager [Consult to Nutrition] [CONS] Routine Comment: Total fluid rate- TPN goal rate Consulting Provider: NUTRITION Reason for Dietary Consult: TPN Start and Manage 05/22/18 11:40 Consult to Interventional Radiology [CONS] Routine Consulting Provider: Radiology Interventional Cols Reason for Consult: left sided thoracentesis Call Completed: Yes 05/27/18 11:44 Consult to Accounts Receivable Manager [CONS] Stat Reason for SW Consult: ECF placement. Ready for discharge today. Patient now agreeable to going to ECF. Thanks. Discharging clinician: Ricky Sanders Anticipated date of discharge: 05/27/18 - Constitutional Vitals: Temp Pulse Resp BP Pulse Ox 97.8 F 83 16 143/56 95 05/27/18 10:56 05/27/18 10:56 05/27/18 10:56 05/27/18 10:56 05/27/18 10:56 General appearance: Present: cooperative, A&O X 3, pleasant, no acute distress, obese, answers questions appropriately - Respiratory Respiratory exam: Present: CTAB. Absent: accessory muscle use, rales, rhonchi, wheezes Additional comments: Normal WOB - Cardiovascular Cardiovascular exam: Present: RRR, +S1, +S2. Absent: diastolic murmur, gallop, rubs, systolic murmur Additional comments: No BLE edema - GI/Abdominal GI/Abdominal exam: Present: normal bowel sounds, soft. Absent: distended, hepatomegaly, mass, splenomegaly, tenderness Additional comments: Surgical incision intact without signs of infection - Psychiatric Psychiatric exam: Present: normal affect, normal mood. Absent: agitated, anxious, depressed - Skin Skin exam: Present: dry, intact, warm. Absent: cyanosis, rash - Patient Status Disposition: Transfer SNF Condition: Good Overall status at discharge: patient is progressing back to baseline - Discharge Instructions Instructions: Adult Open Jairo Fundoplication (DC) Follow Up With: Maxwell Ramos MD [Primary Care Provider] - (PER DR. RAMOS'S OFFICE THE PATIENT HAS TO MAKE THEIR OWN APPOINTMENT) Wiliam Connor CNP [Advanced Practice Nurse] - (OFFICE WILL CALL PATIENT AT HOME WITH FOLLOW UP APPOINTMENT) Day Katz CNP [Advanced Practice Nurse] - 06/08/18 1:45 pm Additional Instructions: Follow up with ECF physician in 2-3 days after discharge. Recheck BMP and CBC at that time. Follow up with surgery as directed. General Instructions After Jairo Surgery 1. No pushing, pulling, or lifting greater than 15 lbs for two weeks. 2. You may shower beginning today, but no tub baths, soaking, or swimming for 2 weeks. 3. You may resume driving when you are off narcotics and are safe to react in a car. 4. Take narcotics as directed. Do not take more narcotics then directed and do not share your narcotics with any other person. Do not drink alcohol while on narcotics. 5. Take stool softeners (Colace) or a water based laxative (Miramax) while taking narcotics. You may hold for loose stools. 6. Report any fevers greater than 100.5F, increase abdominal discomfort, drainage that looks like pus, increased redness or pain at the surgical site, or any vomiting. 7. Report any pain in the calves, shortness of breath, or rapid heartbeat. 8. Continue to take your heartburn medications until directed to stop. Do not stop them abruptly as this can cause symptoms of reflux. 9. Do not drink alcohol or carbonated beverages. 10. Do not deviate from the recommended Jairo diet below. Doing so can affect your outcomes. [facility] Diet After Jairo Fundoplication Surgery This diet information is for patients who have recently had Jairo Fundoplication Surgery to correct reflux disease or to repair various types of hernias, such as hiatal hernia and intrathoracic stomach. This diet may also be used for other gastrointestinal surgeries, such as Heller myotomy and repair of achalasia. The diet will help control diarrhea, excess gas and swallowing problems, which may occur after this type of surgery. Important Steps to Keep Your Stomach From Stretching Eat small, frequent meals (six to eight per day). This will help you consume the majority of the nutrients you need without causing your stomach to feel full or distended. Drinking large amounts of fluids with meals can stretch your stomach. You may drink fluids between meals as often as you like, but limit fluids to 1/2 cup (4 fluid ounces) with meals and one cup (8 fluid ounces) with snacks. Sit upright while eating, and stay upright for 30 minutes after each meal. [place] can help food move through your digestive tract. Do not lie down after eating. Sit upright for 2 hours after your last meal or snack of the day. Eat very slowly. Take your time when eating. Take small bites and chew your food well to knitter helper in swallowing and digestion. Avoid crusty breads and sticky, gummy foods, such as bananas, fresh doughy breads, rolls and doughnuts. These types of foods become sticky and difficult to swallow. Toasted breads tend to be better tolerated. Lastly, if you eat sweets, consume them at the end of your meal to avoid a group of symptoms referred to as dumping syndrome. This describes the rapid emptying of foods from the stomach to the small intestine. Sweetened beverages, candy and desserts move more rapidly and dump quickly into the intestines. This can cause symptoms of nausea, weakness, cold sweats, cramps, diarrhea and dizzy spells. Important Steps to Avoid Gas Do not drink through a straw, chew gum, or chew tobacco. These actions cause you to swallow air, which will produce excess gas in your stomach. Chew with your mouth closed and chew your food thoroughly. Avoid foods that cause stomach gas and distention. The foods include corn, dried beans, peas, lentils, onions, broccoli, cauliflower, and any food item from the cabbage family. Do not drink carbonated drinks, alcohol, citrus, or tomato products. What Will I Be Able To Eat and Drink After Surgery After Jairo Fundoplication Surgery, your diet will be advanced slowly by your surgeon. Generally, you will be on a thin/clear liquid diet for the first 10 days. Then you will advance to the full liquid diet for 4 days and eventually to a Jairo soft diet for 7 days. After any surgery, protein consumption is important for healing. To get enough protein, drink 3-4 [place] Instant Breakfast, Ensure, or equivalent daily. Reminder: Carbonated beverages (such as sodas, energy drinks, flavored carbonated water), and alcohol are not permitted for the 1st 6 to 8 weeks after surgery. After this time you may attempt to reintroduce them in small amounts. Please note: Dairy products such as milk, ice cream, and pudding may cause diarrhea in some people after surgery. You may need to avoid milk products. If so you may substitute them with lactose free beverages, such as soy, rice, lactate, or almond milk. Please be aware that each patient's tolerance to food is different. Your doctor will advance your diet depending on how well you progress after surgery. Thin Liquid Diet The first diet after Jairo Fundoplication Surgery is the thin liquids diet. Follow this diet for postoperative days 1-10 05/14- 05/24. Thin liquids include: Apple, Cranberry, or Grape Juice (no citrus juice) Chicken Broth Beef Broth Flavored Gelatin (Jell-O) Decaffeinated Tea or Coffee Popsicles or [place] Ice Caffeinated Beverages Will Be Permitted Based upon Tolerance and at a later date Dairy if tolerated Thin Milkshakes (strawberry or vanilla flavored- No chocolate) Drink 3-4 [place] instant breakfast, Ensure, or equivalent daily. May be mixed with dairy for thin milkshakes Full Liquid Diet Follow this diet for postoperative days 11-14 05/25/2018 - 05/02/2018. Full liquid diet includes anything in the thin liquid diet plus: Milk: Dairy, Soy, Rice, and [place] (No Chocolate) Cream of Wheat, Cream of Rice, Grits Strained Creamed Soups (No Tomato or Broccoli) Vanilla and [place] Flavored Ice Cream Sherbet Vanilla and Butterscotch Pudding (No Chocolate or Coconut) Continue 3-4 [place] Instant Breakfast, Ensure, or an Equivalent Daily. May be mixed with Dairy for Thin Milkshakes. Jairo Soft Diet Follow this diet for postoperative days 15-20 05/29/2018 - 06/04/2018. (If you are consuming enough protein, you may stop the protein supplements). Please note: You will need extra fluids throughout the day to meet your fluid needs. - Diet and Activity Activity: as per physical therapy Diet: advance to your usual diet (Advance diet as directed by surgery), other ( Ensure Clear TID with meals) - VTE Documentation of Mechanical Device: Intermittent pneumatic compression device Contraindication No Overlap Therapy: Admin of oral Factor Xa Inhibitor
--- NOTE | 2018-05-27 12:11 | Physician Discharge Referral ---
ExtendedCare Referral Info Transfer To: ECF Provider in Charge after Transfer: Other (ECF Physician) Institutional Level of Care: Skilled - Diagnosis (1) Gastric volvulus Priority: Primary Status: Resolved (2) New onset a-fib Priority: Secondary Status: Resolved (3) Pneumonia Priority: Secondary Status: Acute (4) Exudative pleural effusion Priority: Secondary Status: Acute (5) Leukocytosis Priority: Secondary Status: Resolved (6) Hypertension Priority: Secondary Status: Chronic (7) Hypophosphatemia Priority: Secondary Status: Resolved (8) Hyponatremia Priority: Secondary Status: Resolved (9) DVT prophylaxis Priority: Secondary Status: Acute Expected Duration of Placement: 4-6 weeks Prognosis: Fair Aware of Diagnosis: Patient Aware of Prognosis: Patient - Transfer Medications Prescriptions: HYDROcodone/Acet 5/325 mg [[place] 5-325 mg] 1 tab PO Q4HR PRN 4 Days #24 tablet PRN Reason: Severe Pain Amoxicillin/Clavulanate [Augmentin] 875 mg PO BIDWM #5 tablet Diltiazem CD (24hr) [Cardizem CD] 120 mg PO DAILY 4 Days #4 cap.er.24h Omeprazole [PriLOSEC] 40 mg PO DAILY@0730 4 Days #4 capsule. Rivaroxaban [Xarelto] 20 mg PO 1700 4 Days #4 tablet Home Medications: Levothyroxine Sodium 75 mcg PO 0630 01/09/18 [History] Simvastatin [Zocor] 10 mg PO HS 01/09/18 [History] Ondansetron ODT [Zofran ODT] 4 mg SL Q6HR PRN #10 tab.rapdis 05/11/18 [Rx] Lisinopril-HCTZ 10-12.5 [Prinzide 10-12.5] 1 tab PO DAILY 05/13/18 [History] Tramadol HCl [Ultram] 50 mg PO HS 05/13/18 [History] Amoxicillin/Clavulanate [Augmentin] 875 mg PO BIDWM #5 tablet 05/27/18 [Rx] Diltiazem CD (24hr) [Cardizem CD] 120 mg PO DAILY 4 Days #4 cap.er.24h 05/27/18 [Rx] HYDROcodone/Acet 5/325 mg [[place] 5-325 mg] 1 tab PO Q4HR PRN 4 Days #24 tablet 05/27/18 [Rx] Omeprazole [PriLOSEC] 40 mg PO DAILY@0730 4 Days #4 capsule. 05/27/18 [Rx] Rivaroxaban [Xarelto] 20 mg PO 1700 4 Days #4 tablet 05/27/18 [Rx] Allergies/Adverse Reactions: 3 Allergy/AdvReac Type Severity Reaction Status Date / Time tramadol AdvReac Dizziness Verified 05/13/18 20:27 - Respiratory Orders None Smoking Cessation: Smoking cessation has been advised. For more information, call the [place] Tobacco Quit Line at 7-880-BRIT-NOW. - Lab Orders Lab Orders: CBC (in 2-3 days after discharge), Other (include drug levels w/ frequency) (BMP in 2-3 days after discharge) - Advance Directives Code Status: Full Code - Mobility Orders Other (Per physical therapy) - Rehabiliation Orders Rehab Potential: Fair Rehab Orders: Evaluation for Physical Therapy, Evaluation for Occupational Therapy - Diet Orders No Concentrated Sweets (Advance diet per surgery recommendations), Cardiac ( Advance diet per surgery recommendations) House Supplement per Dietary: Ensure Clear TID with meals CERTIFICATION: I certify that the transfer of the above named patient to an Extended Care Facility is necessary for the continuing treatment of the diagnosis listed. The above information is true and accurate reflection of patient's current condition. Confidential - Redisclosure prohibited without a patient's written consent.
[2018-05-27] MEDS: *HR* Rivaroxaban 10 MG TABLET PO SCH (15:51)
[2018-05-27] MEDS ORDERED: Insulin LISPRO 300 UNITS/3 ML VIAL SQ SCH (21:00)
[2018-05-28 05:21] LABS: Basophils % 0.7 %; Eosinophils % 0.8 %; Hematocrit 26.9 % (35.3-44.9); Hemoglobin 8.6 g/dL (11.5-15.4); Immature Granulocytes % 6.3 % (0-4); Lymphocytes % 17.6 %; Mean Corpuscular Hemoglobin 28.9 pg (28.0-33.3); Mean Corpuscular Volume 90.3 fL (83.0-100.0); Mean Platelet Volume 9.1 fL (9.4-12.4); Monocytes % 9.1 %; Platelet Count 235 K/mcL (140-400); Red Blood Count 2.98 M/mcL (3.82-4.97); Red Cell Distribution Width 14.6 % (11.5-14.5); Segmented Neutrophils % 65.5 %
[2018-05-28 05:22] LABS: Basophils # 0.1 K/mcL (0.0-0.2); Eosinophils # 0.1 K/mcL (0.0-0.6); Lymphocytes # 1.3 K/mcL (0.6-4.6); Monocytes # 0.7 K/mcL (0.0-1.3); Neutrophils # 4.9 K/mcL (1.6-8.9); Nucleated Red Blood Cells 0.3 /100 WBC (0)
[2018-05-28 05:44] LABS: BUN/Creatinine Ratio 29 (6-26); Blood Urea Nitrogen 20 mg/dL (8-23); Calcium 8.2 mg/dL (8.6-10.3); Carbon Dioxide 21 mEq/L (23-29); Chloride 108 mEq/L (98-107); Glucose 101 mg/dL (70-105); Osmolality,Calculated 281 (280-300); Potassium 3.7 mEq/L (3.5-5.1); Sodium 134 mEq/L (136-145); eGFR For African Americans > 60 (> 60); eGFR For Non-African Americans > 60 (> 60)
[2018-05-28 05:54] LABS: Platelet Estimate Normal (Normal); Polychromasia 1+ (Not Present); Toxic Granulation Present (Not Present)
[2018-05-28] MEDS: Insulin LISPRO 300 UNITS/3 ML VIAL SQ SCH ×2 (08:33→12:17)
[2018-05-28] MEDS: Diltiazem CD (24hr) 120 MG CAPSULE PO SCH (08:34)
[2018-05-28 11:14] VITALS: BP 134/80
--- NOTE | 2018-05-28 12:12 | Internal Med Progress Note ---
Date of Encounter: 05/28/18 Time of Encounter: 12:08 - Assessment and plan (1) Gastric volvulus Current Visit: Yes Status: Resolved Assessment and plan: POD #14 s/p exploratory laparotomy with reduction of gastric volvulus, hiatal hernia repair, Jairo fundoplication, and gastropexy. Patient accepted to SNF, but wants to go to different facility; SW working on placement. Patient was conditionally discharged yesterday. Advance to regular diet today. Recheck labwork in AM. (2) New onset a-fib Current Visit: Yes Status: Resolved Assessment and plan: Resolved. ECHO with normal ejection fraction. Continue PO Cardizem and xarelto. (3) Pneumonia Current Visit: Yes Status: Acute Assessment and plan: Leukocytosis resolved. Continue PO augmentin 2 more days. Qualifiers: Laterality: left Lung location: lower lobe of lung Qualified Code(s): J18.1 - Lobar pneumonia, unspecified organism (4) Exudative pleural effusion Current Visit: Yes Status: Acute Assessment and plan: S/P thoracentesis. Continue to monitor. (5) Leukocytosis Current Visit: Yes Status: Resolved Assessment and plan: Resolved. Management of pneumonia as per above. Recheck CBC in AM. Qualifiers: Leukocytosis type: unspecified Qualified Code(s): D72.829 - Elevated white blood cell count, unspecified (6) Hypertension Current Visit: Yes Status: Chronic Assessment and plan: Continue home medications. Qualifiers: Hypertension type: essential hypertension Qualified Code(s): I10 - Essential (primary) hypertension Code(s): I10 - Essential (primary) hypertension SNOMED Code(s): 50696327 (7) Hypophosphatemia Current Visit: Yes Status: Resolved Assessment and plan: Resolved. Continue to monitor. Code(s): E83.39 - Other disorders of phosphorus metabolism (8) Hyponatremia Current Visit: Yes Status: Resolved Assessment and plan: Improving. Continue sodium tablets until tolerating good PO. Recheck BMP in AM. (9) DVT prophylaxis Current Visit: Yes Status: Acute Assessment and plan: Continue home xarelto and SCDs. - Time Spent With Patient Total time spent is greater than 50% in coordination of care (as documented) at patient's floor/unit and/or counseling patient: less than 15 minutes - Subjective Interval history: Patient had no acute events overnight. She states that she is feeling "ok" today. She was discharged yesterday, but she was not agreeable to SNF that [facility] got approved yesterday. SW working today on placement to new SNF facility. She states pain is well-controlled. She denies nausea and vomiting. She is tolerating diet without any issues. She is agreeable to trial of regular diet. She denies fever, chills, chest pain, and SOB. She has no other complaints at this time. - Constitutional Vitals: Temp Pulse Resp BP Pulse Ox 98.5 F 78 18 134/80 95 05/28/18 11:12 05/28/18 11:12 05/28/18 11:12 05/28/18 11:12 05/28/18 11:12 General appearance: Present: cooperative, A&O X 3, pleasant, no acute distress, obese, answers questions appropriately - Respiratory Respiratory exam: Present: CTAB. Absent: accessory muscle use, rales, rhonchi, wheezes Additional comments: Normal WOB - Cardiovascular Cardiovascular exam: Present: RRR, +S1, +S2. Absent: diastolic murmur, gallop, rubs, systolic murmur Additional comments: No BLE edema - GI/Abdominal GI/Abdominal exam: Present: normal bowel sounds, soft. Absent: distended, hepatomegaly, mass, splenomegaly, tenderness - Psychiatric Psychiatric exam: Present: normal affect, normal mood. Absent: agitated, anxious, depressed - Skin Skin exam: Present: dry, intact, warm. Absent: cyanosis, rash Internal Medicine: Result - Labs CBC & Chem 7: 05/28/18 05:08 05/28/18 05:08 Labs: Short CBC 05/28/18 Range/Units 05:08 WBC 7.5 (4.3-11.1) K/mcL Hgb 8.6 L (11.5-15.4) g/dL Hct 26.9 L (35.3-44.9) % Plt Count 235 (140-400) K/mcL Neutrophils # 4.9 (1.6-8.9) K/mcL BMP 05/28/18 05:08 Sodium 134 L Potassium 3.7 Chloride 108 H Carbon Dioxide 21 L BUN 20 Creatinine 0.70 Glucose 101 Calcium 8.2 L - ABG Interpretation ABG results: PT/INR, D-dimer PT 11.5 Seconds (9.4-12.1) 05/13/18 18:00 - VTE Documentation of Mechanical Device: Intermittent pneumatic compression device Contraindication No Overlap Therapy: Admin of oral Factor Xa Inhibitor Consult Discharge Plan - Plan Instructions: Adult Open Jairo Fundoplication (DC) Additional Instructions: Follow up with ECF physician in 2-3 days after discharge. Recheck BMP and CBC at that time. Follow up with surgery as directed. General Instructions After Jairo Surgery 1. No pushing, pulling, or lifting greater than 15 lbs for two weeks. 2. You may shower beginning today, but no tub baths, soaking, or swimming for 2 weeks. 3. You may resume driving when you are off narcotics and are safe to react in a car. 4. Take narcotics as directed. Do not take more narcotics then directed and do not share your narcotics with any other person. Do not drink alcohol while on narcotics. 5. Take stool softeners (Colace) or a water based laxative (Miramax) while taking narcotics. You may hold for loose stools. 6. Report any fevers greater than 100.5F, increase abdominal discomfort, drainage that looks like pus, increased redness or pain at the surgical site, or any vomiting. 7. Report any pain in the calves, shortness of breath, or rapid heartbeat. 8. Continue to take your heartburn medications until directed to stop. Do not stop them abruptly as this can cause symptoms of reflux. 9. Do not drink alcohol or carbonated beverages. 10. Do not deviate from the recommended Jairo diet below. Doing so can affect your outcomes. [place] [facility] Diet After Jairo Fundoplication Surgery This diet information is for patients who have recently had Jairo Fundoplication Surgery to correct reflux disease or to repair various types of hernias, such as hiatal hernia and intrathoracic stomach. This diet may also be used for other gastrointestinal surgeries, such as Heller myotomy and repair of achalasia. The diet will help control diarrhea, excess gas and swallowing problems, which may occur after this type of surgery. Important Steps to Keep Your Stomach From Stretching Eat small, frequent meals (six to eight per day). This will help you consume the majority of the nutrients you need without causing your stomach to feel full or distended. Drinking large amounts of fluids with meals can stretch your stomach. You may drink fluids between meals as often as you like, but limit fluids to 1/2 cup (4 fluid ounces) with meals and one cup (8 fluid ounces) with snacks. Sit upright while eating, and stay upright for 30 minutes after each meal. [place] can help food move through your digestive tract. Do not lie down after eating. Sit upright for 2 hours after your last meal or snack of the day. Eat very slowly. Take your time when eating. Take small bites and chew your food well to hot saw helper in swallowing and digestion. Avoid crusty breads and sticky, gummy foods, such as bananas, fresh doughy breads, rolls and doughnuts. These types of foods become sticky and difficult to swallow. Toasted breads tend to be better tolerated. Lastly, if you eat sweets, consume them at the end of your meal to avoid a group of symptoms referred to as dumping syndrome. This describes the rapid emptying of foods from the stomach to the small intestine. Sweetened beverages, candy and desserts move more rapidly and dump quickly into the intestines. This can cause symptoms of nausea, weakness, cold sweats, cramps, diarrhea and dizzy spells. Important Steps to Avoid Gas Do not drink through a straw, chew gum, or chew tobacco. These actions cause you to swallow air, which will produce excess gas in your stomach. Chew with your mouth closed and chew your food thoroughly. Avoid foods that cause stomach gas and distention. The foods include corn, dried beans, peas, lentils, onions, broccoli, cauliflower, and any food item from the cabbage family. Do not drink carbonated drinks, alcohol, citrus, or tomato products. What Will I Be Able To Eat and Drink After Surgery After Jairo Fundoplication Surgery, your diet will be advanced slowly by your surgeon. Generally, you will be on a thin/clear liquid diet for the first 10 days. Then you will advance to the full liquid diet for 4 days and eventually to a Jairo soft diet for 7 days. After any surgery, protein consumption is important for healing. To get enough protein, drink 3-4 [place] Instant Breakfast, Ensure, or equivalent daily. Reminder: Carbonated beverages (such as sodas, energy drinks, flavored carbonated water), and alcohol are not permitted for the 1st 6 to 8 weeks after surgery. After this time you may attempt to reintroduce them in small amounts. Please note: Dairy products such as milk, ice cream, and pudding may cause diarrhea in some people after surgery. You may need to avoid milk products. If so you may substitute them with lactose free beverages, such as soy, rice, lactate, or almond milk. Please be aware that each patient's tolerance to food is different. Your doctor will advance your diet depending on how well you progress after surgery. Thin Liquid Diet The first diet after Jairo Fundoplication Surgery is the thin liquids diet. Follow this diet for postoperative days 1-10 05/14- 05/24. Thin liquids include: Apple, Cranberry, or Grape Juice (no citrus juice) Chicken Broth Beef Broth Flavored Gelatin (Jell-O) Decaffeinated Tea or Coffee Popsicles or [place] Ice Caffeinated Beverages Will Be Permitted Based upon Tolerance and at a later date Dairy if tolerated Thin Milkshakes (strawberry or vanilla flavored- No chocolate) Drink 3-4 [place] instant breakfast, Ensure, or equivalent daily. May be mixed with dairy for thin milkshakes Full Liquid Diet Follow this diet for postoperative days 11-14 05/25/2018 - 05/02/2018. Full liquid diet includes anything in the thin liquid diet plus: Milk: Dairy, Soy, Rice, and [place] (No Chocolate) Cream of Wheat, Cream of Rice, Grits Strained Creamed Soups (No Tomato or Broccoli) Vanilla and [place] Flavored Ice Cream Sherbet Vanilla and Butterscotch Pudding (No Chocolate or Coconut) Continue 3-4 [place] Instant Breakfast, Ensure, or an Equivalent Daily. May be mixed with Dairy for Thin Milkshakes. Jairo Soft Diet Follow this diet for postoperative days 15-20 05/29/2018 - 06/04/2018. (If you are consuming enough protein, you may stop the protein supplements). Please note: You will need extra fluids throughout the day to meet your fluid needs. Referrals: Maxwell Ramos MD [Primary Care Provider] - (PER DR. RAMOS'S OFFICE THE PATIENT HAS TO MAKE THEIR OWN APPOINTMENT Patient is going to [facility]) Wiliam Connor HANDBAG FRAMES INSPECTOR [Advanced Practice Nurse] - (OFFICE WILL CALL PATIENT AT HOME WITH FOLLOW UP APPOINTMENT) Day Katz CNP [Advanced Practice Nurse] - 06/08/18 1:45 pm Prescriptions: HYDROcodone/Acet 5/325 mg [[place] 5-325 mg] 1 tab PO Q4HR PRN 4 Days #24 tablet PRN Reason: Severe Pain Amoxicillin/Clavulanate [Augmentin] 875 mg PO BIDWM #5 tablet Diltiazem CD (24hr) [Cardizem CD] 120 mg PO DAILY 4 Days #4 cap.er.24h Omeprazole [PriLOSEC] 40 mg PO DAILY@0730 4 Days #4 capsule. Rivaroxaban [Xarelto] 20 mg PO 1700 4 Days #4 tablet
== END 2018-05-28 14:49 | DRG 326 ==
LOC: 2NENU 17:32 → EMEROO 17:32 → 2NENU 22:23 → ICNU 05-14 11:34 → 2NNU 05-16 16:06 → 2ANU 05-25 19:10
PROVIDERS: ADMIT Family Medicine; ATTEND Family Medicine

== ENCOUNTER 2018-07-23 11:21 | Inpatient (IN) ==
--- NOTE | 2018-07-23 11:39 | Emergency Department Note ---
Disposition Clinical Impression: Shortness of breath, Exertional dyspnea, Elevated troponin I level Disposition: Admitted As Inpatient Condition: Fair General Adult HPI - General Chief complaint: ED Shortness of Breath/Dyspnea Stated complaint: nausea Time Seen by Provider: 07/23/18 11:32 Source: EMS Limitations: no limitations - History of Present Illness Pain Scale: 0 - Related Data Home Medications Medication Instructions Recorded Confirmed Levothyroxine Sodium 75 mcg PO 0630 01/09/18 07/23/18 Simvastatin [Zocor] 10 mg PO HS 01/09/18 07/23/18 Lisinopril-HCTZ 10-12.5 [Prinzide 1 tab PO DAILY 05/13/18 07/23/18 10-12.5] Tramadol HCl [Ultram] 50 mg PO HS 05/13/18 07/23/18 Potassium Chloride 20 mg PO DAILY 07/23/18 07/23/18 Previous Rx's Medication Instructions Recorded Omeprazole [PriLOSEC] 40 mg PO DAILY@0730 4 Days #4 05/27/18 capsule. Rivaroxaban [Xarelto] 20 mg PO 1700 4 Days #4 tablet 05/27/18 Allergies Allergy/AdvReac Type Severity Reaction Status Date / Time tramadol AdvReac Dizziness Verified 07/23/18 13:28 Past Medical History - Past Medical History Medical history: Reports: GERD, hyperlipidemia, hypertension, thyroid disease Surgical history: Reports: hysterectomy Psychiatric history: Reports: no psych history - Social History Smoking Status: Never smoker Smokeless Tobacco Status: No Alcohol use: Reports: none Drug use: Reports: none Physical Exam - General Limitations: no limitations General appearance: alert, in no apparent distress Course Vital Signs Temperature 97.9 F 07/23/18 11:26 Pulse Rate 92 07/23/18 11:26 Respiratory Rate 21 07/23/18 11:26 Blood Pressure 117/70 07/23/18 11:26 O2 Sat by Pulse Oximetry 100 07/23/18 11:26 Temperature 97.9 F 07/23/18 11:26 Pulse Rate 87 07/23/18 13:16 Respiratory Rate 18 07/23/18 14:21 Blood Pressure 0/0 07/23/18 14:21 O2 Sat by Pulse Oximetry 100 07/23/18 13:16 Oxygen Delivery Oxygen Delivery Nasal Cannula Medical Decision Making - Lab Data Result diagrams: 07/23/18 11:45 08/23/18 11:45 Lab Results 07/23/18 07/23/18 07/23/18 Range/Units 11:45 11:45 11:45 WBC 17.3 H (4.3-11.1) K/mcL RBC 3.75 L (3.82-4.97) M/mcL Hgb 10.9 L (11.5-15.4) g/dL Hct 33.0 L (35.3-44.9) % MCV 88.0 (83.0-100.0) fL MCH 29.1 (28.0-33.3) pg MCHC 33.0 (31.6-35.5) g/dL RDW 14.9 H (11.5-14.5) % Plt Count 222 (140-400) K/mcL MPV 9.3 L (9.4-12.4) fL Immature Gran % 1.0 (0-4) % Seg Neutrophils % 79.0 % Lymphocytes % 12.9 % Monocytes % 6.9 % Eosinophils % 0.0 % Basophils % 0.2 % Neutrophils # 13.7 H (1.6-8.9) K/mcL Lymphocytes # 2.2 (0.6-4.6) K/mcL Monocytes # 1.2 (0.0-1.3) K/mcL Eosinophils # 0.0 (0.0-0.6) K/mcL Basophils # 0.0 (0.0-0.2) K/mcL APTT (26.0-36.0) Seconds Sodium 127 L (136-145) mEq/L Potassium 3.7 (3.5-5.1) mEq/L Chloride 99 (98-107) mEq/L Carbon Dioxide 24 (23-29) mEq/L BUN 30 H (8-23) mg/dL Creatinine 1.23 H (0.60-1.20) mg/dL Est GFR ( Amer) 51 L (> 60) Est GFR (Non-Af Amer) 42 L (> 60) BUN/Creatinine Ratio 24 (6-26) Glucose 133 H (70-105) mg/dL Calculated Osmolality 272 L (280-300) Calcium 10.3 (8.6-10.3) mg/dL Troponin I 0.04 H* (< 0.04) ng/mL B-Natriuretic Peptide 337 H (Less than 100) pg/mL 07/23/18 Range/Units 13:32 WBC (4.3-11.1) K/mcL RBC (3.82-4.97) M/mcL Hgb (11.5-15.4) g/dL Hct (35.3-44.9) % MCV (83.0-100.0) fL MCH (28.0-33.3) pg MCHC (31.6-35.5) g/dL RDW (11.5-14.5) % Plt Count (140-400) K/mcL MPV (9.4-12.4) fL Immature Gran % (0-4) % Seg Neutrophils % % Lymphocytes % % Monocytes % % Eosinophils % % Basophils % % Neutrophils # (1.6-8.9) K/mcL Lymphocytes # (0.6-4.6) K/mcL Monocytes # (0.0-1.3) K/mcL Eosinophils # (0.0-0.6) K/mcL Basophils # (0.0-0.2) K/mcL APTT 27.1 (26.0-36.0) Seconds Sodium (136-145) mEq/L Potassium (3.5-5.1) mEq/L Chloride (98-107) mEq/L Carbon Dioxide (23-29) mEq/L BUN (8-23) mg/dL Creatinine (0.60-1.20) mg/dL Est GFR ( Amer) (> 60) Est GFR (Non-Af Amer) (> 60) BUN/Creatinine Ratio (6-26) Glucose (70-105) mg/dL Calculated Osmolality (280-300) Calcium (8.6-10.3) mg/dL Troponin I (< 0.04) ng/mL B-Natriuretic Peptide (Less than 100) pg/mL Attestation Statement - Attestation Attestation: I examined this patient and my medical decision-making was reviewed with the ORACLE MANUFACTURING CONSULTANT/PA/Advanced Practice Nurse/Resident Physician. I agree with the documented findings, disposition and treatment plan as described except to the extent set forth below. I did see the patient immediately upon arrival and also spoke with the paramedics and she does live at home with her and went to the primary care office today for a regularly scheduled appointment and was complaining of shortness of breath which is still persistent but improved. She was transferred here per EMS. I did review the pre-arrival EKG did have a wavy baseline but did show some ST changes so a 12-lead is being repeated emergently at this time. The patient will be further evaluated for her shortness of breath for myocardial ischemia, CHF, chest x-ray will be done. She denies any chest pain or discomfort. I did review the previous record. Results pending. 1139 I did review the EKG showing normal sinus rhythm which is narrow complex which has a rate just over 100 bpm. There is some ST change that was present on the previous EKG from June 24. Further evaluation including troponin testing is pending. 1149 The patient will be admitted. Elevated troponin. Shortness of breath - new onset. Continued evaluation and management as a inpatient. Sat 100% on RA. [id number]
--- NOTE | 2018-07-23 11:45 | Emergency Department Note ---
Disposition Clinical Impression: Shortness of breath, Exertional dyspnea, Elevated troponin I level Disposition: Admitted As Inpatient Condition: Fair Time of Disposition: 14:14 SOB HPI - General Chief Complaint: ED Shortness of Breath/Dyspnea Stated Complaint: nausea Time Seen by Provider: 07/23/18 11:32 Source: EMS Limitations: no limitations Nursing Notes Reviewed: Yes Vital Signs Reviewed: Yes - History of Present Illness I have re-performed and reviewed the history documented by the medical student, and I confirm its accuracy except as noted below Pt Subjective Complaint: shortness of breath Onset (ago): week(s) (1) Severity: moderate Consistency/Duration: gradually worsening Improves with: nothing Worsens with: exertion Associated symptoms: Denies: chest pain, fever, cough, nausea/vomiting, abdominal pain Treatment prior to arrival: none Cough present: No - Related Data Home oxygen amount: none Home Medications Medication Instructions Recorded Confirmed Levothyroxine Sodium 75 mcg PO 0630 01/09/18 07/23/18 Simvastatin [Zocor] 10 mg PO HS 01/09/18 07/23/18 Lisinopril-HCTZ 10-12.5 [Prinzide 1 tab PO DAILY 05/13/18 07/23/18 10-12.5] Tramadol HCl [Ultram] 50 mg PO HS 05/13/18 07/23/18 Potassium Chloride 20 mg PO DAILY 07/23/18 07/23/18 Previous Rx's Medication Instructions Recorded Omeprazole [PriLOSEC] 40 mg PO DAILY@0730 4 Days #4 05/27/18 capsule. Rivaroxaban [Xarelto] 20 mg PO 1700 4 Days #4 tablet 05/27/18 Allergies Allergy/AdvReac Type Severity Reaction Status Date / Time tramadol AdvReac Dizziness Verified 07/23/18 13:28 All systems ED: reviewed and negative except as stated. Past Medical History - Past Medical History Attestation: Yes The following information was validated with the patient. Source: patient Medical history: Reports: GERD, hyperlipidemia, hypertension, thyroid disease Surgical history: Reports: hysterectomy Psychiatric history: Reports: no psych history - Social History Smoking Status: Never smoker Smokeless Tobacco Status: No Alcohol use: Reports: none Drug use: Reports: none Physical Exam - General Limitations: no limitations General appearance: alert, in no apparent distress - Head Head exam: atraumatic, normocephalic, normal inspection - Eye Eye exam: Present: EOMI - ENT ENT exam: normal exam, normal oropharynx, mucous membranes moist - Neck Neck exam: Present: normal inspection, full ROM, trachea midline - Chest Chest inspection: Present: normal inspection, symmetric chest wall rise - Respiratory Respiratory exam: Present: normal lung sounds bilaterally - Cardiovascular Cardiovascular exam: Present: regular rate, normal rhythm, normal heart sounds - Abdominal Exam Abdominal exam: Present: soft, Non-Tender. Absent: tenderness, distention, guarding, rebound, rigidity - Extremities Exam Extremities exam: Present: normal inspection, full ROM. Absent: tenderness, pedal edema - Neurological Exam Neurological exam: Present: alert, oriented X3 - Psychiatric Psychiatric exam: Present: normal affect, normal mood - Skin Skin exam: Present: warm, dry, intact, normal color Course Course Narrative: Patient seen and examined. Exertional dyspnea worse with exertion. Cardiopulmonary workup was initiated. EKG initially showed some signs of diffuse ST elevation. However when compared with her prior EKG, this was unchanged. I do not have concern at this time for a pulmonary embolus. Patient 's oxygen saturation is 100% on room air and her heart rate is normal. She does not have any pleuritic chest pain. - Reevaluation(s) Reevaluation #1: Labwork shows a mildly elevated troponin of 0.04. This was also elevated during her previous admission. Patient also has an elevated BNP over 300 that was previously normal. Concern for possible congestive heart failure. I discussed with the hospitalist Dr. Harris who has accepted patient for admission. Time: 14:12 Vital Signs Temperature 97.9 F 07/23/18 11:26 Pulse Rate 92 07/23/18 11:26 Respiratory Rate 21 07/23/18 11:26 Blood Pressure 117/70 07/23/18 11:26 O2 Sat by Pulse Oximetry 100 07/23/18 11:26 Temperature 97.9 F 07/23/18 11:26 Pulse Rate 87 07/23/18 13:16 Respiratory Rate 18 07/23/18 13:16 Blood Pressure 125/75 07/23/18 13:16 O2 Sat by Pulse Oximetry 100 07/23/18 13:16 Oxygen Delivery Oxygen Delivery Room Air Shortness of Breath/Dyspnea - Medical Records Medical records reviewed: Yes I reviewed the patient's medical records. - Lab Data Lab results reviewed: Yes I reviewed the patient's lab results. Result diagrams: 07/23/18 11:45 07/23/18 11:45 Lab Results 07/23/18 07/23/18 07/23/18 Range/Units 11:45 11:45 11:45 WBC 17.3 H (4.3-11.1) K/mcL RBC 3.75 L (3.82-4.97) M/mcL Hgb 10.9 L (11.5-15.4) g/dL Hct 33.0 L (35.3-44.9) % MCV 88.0 (83.0-100.0) fL MCH 29.1 (28.0-33.3) pg MCHC 33.0 (31.6-35.5) g/dL RDW 14.9 H (11.5-14.5) % Plt Count 222 (140-400) K/mcL MPV 9.3 L (9.4-12.4) fL Immature Gran % 1.0 (0-4) % Seg Neutrophils % 79.0 % Lymphocytes % 12.9 % Monocytes % 6.9 % Eosinophils % 0.0 % Basophils % 0.2 % Neutrophils # 13.7 H (1.6-8.9) K/mcL Lymphocytes # 2.2 (0.6-4.6) K/mcL Monocytes # 1.2 (0.0-1.3) K/mcL Eosinophils # 0.0 (0.0-0.6) K/mcL Basophils # 0.0 (0.0-0.2) K/mcL APTT (26.0-36.0) Seconds Sodium 127 L (136-145) mEq/L Potassium 3.7 (3.5-5.1) mEq/L Chloride 99 (98-107) mEq/L Carbon Dioxide 24 (23-29) mEq/L BUN 30 H (8-23) mg/dL Creatinine 1.23 H (0.60-1.20) mg/dL Est GFR ( Amer) 51 L (> 60) Est GFR (Non-Af Amer) 42 L (> 60) BUN/Creatinine Ratio 24 (6-26) Glucose 133 H (70-105) mg/dL Calculated Osmolality 272 L (280-300) Calcium 10.3 (8.6-10.3) mg/dL Troponin I 0.04 H* (< 0.04) ng/mL B-Natriuretic Peptide 337 H (Less than 100) pg/mL 07/23/18 Range/Units 13:32 WBC (4.3-11.1) K/mcL RBC (3.82-4.97) M/mcL Hgb (11.5-15.4) g/dL Hct (35.3-44.9) % MCV (83.0-100.0) fL MCH (28.0-33.3) pg MCHC (31.6-35.5) g/dL RDW (11.5-14.5) % Plt Count (140-400) K/mcL MPV (9.4-12.4) fL Immature Gran % (0-4) % Seg Neutrophils % % Lymphocytes % % Monocytes % % Eosinophils % % Basophils % % Neutrophils # (1.6-8.9) K/mcL Lymphocytes # (0.6-4.6) K/mcL Monocytes # (0.0-1.3) K/mcL Eosinophils # (0.0-0.6) K/mcL Basophils # (0.0-0.2) K/mcL APTT 27.1 (26.0-36.0) Seconds Sodium (136-145) mEq/L Potassium (3.5-5.1) mEq/L Chloride (98-107) mEq/L Carbon Dioxide (23-29) mEq/L BUN (8-23) mg/dL Creatinine (0.60-1.20) mg/dL Est GFR ( Amer) (> 60) Est GFR (Non-Af Amer) (> 60) BUN/Creatinine Ratio (6-26) Glucose (70-105) mg/dL Calculated Osmolality (280-300) Calcium (8.6-10.3) mg/dL Troponin I (< 0.04) ng/mL B-Natriuretic Peptide (Less than 100) pg/mL - Radiology Data Radiology results reviewed: Yes I reviewed the patient's radiology results. Chest X-Ray 07/23/18 11:34 IMPRESSION: Minimal left basilar atelectasis. Otherwise no acute process. D/ / Aryan Dias MD / Aryan Dias MD Interpreting Provider: Aryan Dias MD - EKG Data EKG attestation: Yes I reviewed and interpreted this EKG. EKG results narrative: EKG done at 1133 shows normal sinus rhythm with a rate of around 75 bpm. Signs of possible diffuse ST elevation diffusely, though unchanged from her prior EKG done 06/24/2018.
[2018-07-23] MEDS ORDERED: Ondansetron 4 MG/2 ML VIAL IVP ONE ×2 (11:49→13:15)
--- NOTE | 2018-07-23 12:06 | Emergency Department Note ---
Disposition Clinical Impression: Shortness of breath, Exertional dyspnea, Elevated troponin I level Disposition: Admitted As Inpatient Condition: Fair SOB HPI - General Chief Complaint: ED Shortness of Breath/Dyspnea Stated Complaint: nausea Time Seen by Provider: 07/23/18 11:32 Source: EMS Limitations: no limitations - History of Present Illness Pt is a 78 year old female with past medical history significant for hyperlipidemia, HTN, that presents to the ED from her PCP for shortness of breath. Pt states that she has had increasing shortness of breath for one week that is worse with exertion. She denies chest pain. Pt additionally endorses 3 days of increasing weakness, fatigue, and intermittent nausea. She states that the nausea is worse after eating, although she has not had much of an appetite. Pt denies chest pain, vomiting, diarrhea, abdominal pain, dizziness, vision changes, fever, chills, dysuria. She has not fallen recently. - Related Data Home Medications Medication Instructions Recorded Confirmed Levothyroxine Sodium 75 mcg PO 0630 01/09/18 07/23/18 Simvastatin [Zocor] 10 mg PO HS 01/09/18 07/23/18 Lisinopril-HCTZ 10-12.5 [Prinzide 1 tab PO DAILY 05/13/18 07/23/18 10-12.5] Tramadol HCl [Ultram] 50 mg PO HS 05/13/18 07/23/18 Potassium Chloride 20 mg PO DAILY 07/23/18 07/23/18 Previous Rx's Medication Instructions Recorded Omeprazole [PriLOSEC] 40 mg PO DAILY@0730 4 Days #4 05/27/18 capsule. Rivaroxaban [Xarelto] 20 mg PO 1700 4 Days #4 tablet 05/27/18 Allergies Allergy/AdvReac Type Severity Reaction Status Date / Time tramadol AdvReac Dizziness Verified 07/23/18 13:28 All systems ED: reviewed and negative except as stated. Constitutional: Reports: weakness. Denies: fever, chills Cardiovascular: Reports: dyspnea on exertion. Denies: chest pain, palpitations Respiratory: Reports: dyspnea. Denies: cough, wheezes Gastrointestinal: Reports: nausea. Denies: abdominal pain, vomiting, diarrhea Endocrine: Reports: fatigue Past Medical History - Past Medical History Medical history: Reports: GERD, hyperlipidemia, hypertension, thyroid disease Surgical history: Reports: hysterectomy Psychiatric history: Reports: no psych history - Social History Smoking Status: Never smoker Smokeless Tobacco Status: No Alcohol use: Reports: none Drug use: Reports: none Physical Exam - General Limitations: no limitations General appearance: alert, in no apparent distress - Head Head exam: atraumatic, normocephalic - Respiratory Respiratory exam: Present: normal lung sounds bilaterally, other ( conversational dyspnea). Absent: respiratory distress, wheezes - Cardiovascular Cardiovascular exam: Present: regular rate, normal rhythm. Absent: systolic murmur, diastolic murmur - Abdominal Exam Abdominal exam: Present: soft, Non-Tender, normal bowel sounds - Extremities Exam Extremities exam: Present: normal inspection. Absent: pedal edema - Neurological Exam Neurological exam: Present: alert, oriented X3 - Psychiatric Psychiatric exam: Present: normal affect, normal mood - Skin Skin exam: Present: warm, dry, intact. Absent: rash Course Vital Signs Temperature 97.9 F 07/23/18 11:26 Pulse Rate 92 07/23/18 11:26 Respiratory Rate 21 07/23/18 11:26 Blood Pressure 117/70 07/23/18 11:26 O2 Sat by Pulse Oximetry 100 07/23/18 11:26 Temperature 97.9 F 07/23/18 11:26 Pulse Rate 87 07/23/18 13:16 Respiratory Rate 18 07/23/18 14:21 Blood Pressure 0/0 07/23/18 14:21 O2 Sat by Pulse Oximetry 100 07/23/18 13:16 Oxygen Delivery Oxygen Delivery Nasal Cannula Shortness of Breath/Dyspnea - Lab Data Result diagrams: 07/23/18 11:45 07/23/18 11:45 Lab Results 07/23/18 07/23/18 07/23/18 Range/Units 11:45 11:45 11:45 WBC 17.3 H (4.3-11.1) K/mcL RBC 3.75 L (3.82-4.97) M/mcL Hgb 10.9 L (11.5-15.4) g/dL Hct 33.0 L (35.3-44.9) % MCV 88.0 (83.0-100.0) fL MCH 29.1 (28.0-33.3) pg MCHC 33.0 (31.6-35.5) g/dL RDW 14.9 H (11.5-14.5) % Plt Count 222 (140-400) K/mcL MPV 9.3 L (9.4-12.4) fL Immature Gran % 1.0 (0-4) % Seg Neutrophils % 79.0 % Lymphocytes % 12.9 % Monocytes % 6.9 % Eosinophils % 0.0 % Basophils % 0.2 % Neutrophils # 13.7 H (1.6-8.9) K/mcL Lymphocytes # 2.2 (0.6-4.6) K/mcL Monocytes # 1.2 (0.0-1.3) K/mcL Eosinophils # 0.0 (0.0-0.6) K/mcL Basophils # 0.0 (0.0-0.2) K/mcL APTT (26.0-36.0) Seconds Sodium 127 L (136-145) mEq/L Potassium 3.7 (3.5-5.1) mEq/L Chloride 99 (98-107) mEq/L Carbon Dioxide 24 (23-29) mEq/L BUN 30 H (8-23) mg/dL Creatinine 1.23 H (0.60-1.20) mg/dL Est GFR ( Amer) 51 L (> 60) Est GFR (Non-Af Amer) 42 L (> 60) BUN/Creatinine Ratio 24 (6-26) Glucose 133 H (70-105) mg/dL Calculated Osmolality 272 L (280-300) Calcium 10.3 (8.6-10.3) mg/dL Troponin I 0.04 H* (< 0.04) ng/mL B-Natriuretic Peptide 337 H (Less than 100) pg/mL 07/23/18 Range/Units 13:32 WBC (4.3-11.1) K/mcL RBC (3.82-4.97) M/mcL Hgb (11.5-15.4) g/dL Hct (35.3-44.9) % MCV (83.0-100.0) fL MCH (28.0-33.3) pg MCHC (31.6-35.5) g/dL RDW (11.5-14.5) % Plt Count (140-400) K/mcL MPV (9.4-12.4) fL Immature Gran % (0-4) % Seg Neutrophils % % Lymphocytes % % Monocytes % % Eosinophils % % Basophils % % Neutrophils # (1.6-8.9) K/mcL Lymphocytes # (0.6-4.6) K/mcL Monocytes # (0.0-1.3) K/mcL Eosinophils # (0.0-0.6) K/mcL Basophils # (0.0-0.2) K/mcL APTT 27.1 (26.0-36.0) Seconds Sodium (136-145) mEq/L Potassium (3.5-5.1) mEq/L Chloride (98-107) mEq/L Carbon Dioxide (23-29) mEq/L BUN (8-23) mg/dL Creatinine (0.60-1.20) mg/dL Est GFR ( Amer) (> 60) Est GFR (Non-Af Amer) (> 60) BUN/Creatinine Ratio (6-26) Glucose (70-105) mg/dL Calculated Osmolality (280-300) Calcium (8.6-10.3) mg/dL Troponin I (< 0.04) ng/mL B-Natriuretic Peptide (Less than 100) pg/mL
[2018-07-23 12:08] LABS: Basophils % 0.2 %; Hemoglobin 10.9 g/dL (11.5-15.4); Lymphocytes # 2.2 K/mcL (0.6-4.6); Lymphocytes % 12.9 %; Mean Corpuscular Hemoglobin 29.1 pg (28.0-33.3); Mean Platelet Volume 9.3 fL (9.4-12.4); Monocytes # 1.2 K/mcL (0.0-1.3); Monocytes % 6.9 %; Neutrophils # 13.7 K/mcL (1.6-8.9); Platelet Count 222 K/mcL (140-400); Red Blood Count 3.75 M/mcL (3.82-4.97); Red Cell Distribution Width 14.9 % (11.5-14.5)
[2018-07-23 12:27] LABS: Calcium 10.3 mg/dL (8.6-10.3); Potassium 3.7 mEq/L (3.5-5.1)
[2018-07-23 12:43] LABS: Troponin I 0.04 ng/mL (< 0.04)
[2018-07-23] MEDS ORDERED: Aspirin 325 MG TABLET PO ONE (13:14)
[2018-07-23] MEDS ORDERED: Naloxone 0.4 MG/ML INJ IVP PRN (14:11)
[2018-07-23] MEDS ORDERED: Isovue-370 500 ML INFUS..BTL IV ONE (14:34)
[2018-07-23] MEDS ORDERED: 0.9 % Sodium Chloride 1,000 ML ONE (14:39)
[2018-07-23] MEDS ORDERED: 0.9 % Sodium Chloride 1,000 ML IVC SCH ×2 (14:45)
--- NOTE | 2018-07-23 15:56 | Internal Med History&Physical ---
Date of Encounter: 07/23/18 Time of Encounter: 15:20 Internal Medicine - H&P: HPI Chief complaint: SOB Admitted From: Home History of present illness: Ms. 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 Had significantly worsened since this AM. Also has chills and mild cough without much sputum production. Associated with nausea but no vomiting. Denies any chest pain, palpitation, diaphoresis, orthopnea, PND, or leg swelling. No abdominal pain, change in bowel habits, dysuria, or urinary frequency. No focal weakness or numbness, headache, change in vision, dysarthria, or dysphagia. Denies any joint pain or new onset rash. She was seen in her PCP's office earlier on and was advised to come to the ED. According to the , she has not been able to eat much since her surgery back in May. In the ED, she was afebrile and hemodynamically stable. However , she was tachypneic around 20-24 breaths/minute. Saturating 97-100% on RA. Investigation showed leukocytosis of 17.3, sodium of 127, creatinine 1.23 with her baseline being ~ 0.9, and mild troponin elevation of 0.04. Of note, back in 05/2018, her troponin was also noted to be elevated at 0.04-0.06. BNP 337 which is new however. CXR was essentially unremarkable ?L retrocardiac haziness. Patient was given aspirin and Zofran and admitted for further management. Past Med Surg Social Fam HX - Past Medical History Attestation: Yes The following information was validated with the patient. Medical history: GERD, hyperlipidemia, hypertension, thyroid disease Psychiatric history: no psych history - Past Surgical History Surgical History: hysterectomy Additional surgical history: exploratory laparotomy with reduction of gastric volvulus, hiatal hernia repair, Jairo fundoplication - Social History Smoking Status: Never smoker Smokeless Tobacco Status: No Alcohol use: none Drug use: none - Family History Son Living Status: Hx Family Cancer: Yes (Liver cancer) Internal Medicine - H&P: Meds Levothyroxine Sodium 75 mcg PO 0630 01/09/18 [History] Simvastatin [Zocor] 10 mg PO HS 01/09/18 [History] Lisinopril-HCTZ 10-12.5 [Prinzide 10-12.5] 1 tab PO DAILY 05/13/18 [History] Tramadol HCl [Ultram] 50 mg PO HS 05/13/18 [History] Omeprazole [PriLOSEC] 40 mg PO DAILY@0730 4 Days #4 capsule. 05/27/18 [Rx] Rivaroxaban [Xarelto] 20 mg PO 1700 4 Days #4 tablet 05/27/18 [Rx] Potassium Chloride 20 mg PO DAILY 07/23/18 [History] 3 Allergy/AdvReac Type Severity Reaction Status Date / Time tramadol AdvReac Dizziness Verified 07/23/18 13:28 All Systems PM: A 10-system review of systems was performed and is negative for pertinent findings except as documented above in the HPI. - Constitutional Vitals: Temp Pulse Resp BP Pulse Ox 97.6 F 94 24 161/96 97 07/23/18 15:28 07/23/18 15:28 07/23/18 15:28 07/23/18 15:28 07/23/18 15:28 Exam: General: Alert and oriented, mild respiratory distress HEENT:EOM, pupils equal, round and reactive. Cardiovascular:Normal S1 & S2, No JVD. Pulse regular. Lungs: equal breath sounds bilaterally, no wheezes/rales Abdomen:Soft, non-tender, midline scar well-healed. No guarding/rebound/rigidity Extremities:No deformity or swelling Neurological:Normal cognition and motor skills. Non-focal Skin:Normal color, no rash, no lesions. Pulses:Carotid and radial pulses normal +2. Rest of the physical exam is non contributory Internal Med - H&P Results - Labs CBC & Chem 7: 07/23/18 11:45 07/23/18 11:45 - Assessment and plan (1) Shortness of breath Current Visit: Yes Status: Acute Assessment and plan: unclear etiology, she presents with SOB, cough, and tachypnea on exam Leukocytosis but CXR without obvious consolidation ?possibly L retrocardiac opacity but very subtle if any ?possible underlying sepsis, check lactic acid and obtain blood cultures unsure whether she is taking xarelto at home, will bring in the medications also has mild CECILLE due to poor oral intake post-surgery which could complicate the issue with IV contrast discussed with the patient at length -> if she is not taking xarelto, will hydrate her prior to CT chest angio If she is on xarelto, will proceed with non-con chest CT will also check d-dimer while waiting for to return (2) CECILLE (acute kidney injury) Current Visit: Yes Status: Acute Assessment and plan: states that her oral intake since the operation in 05/2018 had been poor, continuously nauseous reviewed the latest EGD report from 06/03 which showed majority of the stomach above the diaphragm and ischemic type of changes within the mucosa trial of clear liquid today if persistent, will consider consulting surgery (3) Elevated troponin I level Current Visit: Yes Status: Acute Assessment and plan: a/w no new EKG changes, previously was noted to be in the range of 0.04-0.06 denies any chest pain loaded with ASA in the ED trend (4) PAF (paroxysmal atrial fibrillation) Current Visit: Yes Status: Acute Assessment and plan: currently in sinus rhythm not 100% sure whether she is on diltiazem and xarelto at home, to bring in pill bottles (5) Hypertension Current Visit: No Status: Chronic Assessment and plan: hold off on HCTZ/lisinopril given CECILLE Qualifiers: Hypertension type: essential hypertension Qualified Code(s): I10 - Essential (primary) hypertension (6) Hypothyroidism Current Visit: No Status: Chronic Assessment and plan: resume home meds Qualifiers: Hypothyroidism type: unspecified Qualified Code(s): E03.9 - Hypothyroidism , unspecified (7) DVT prophylaxis Current Visit: No Status: Acute Assessment and plan: resume xarelto after confirming the med list - Time Spent With Patient Total time spent is greater than 50% in coordination of care (as documented) at patient's floor/unit and/or counseling patient:
[2018-07-23] MEDS ORDERED: Ondansetron 4 MG/2 ML VIAL IVP PRN (16:17)
[2018-07-23] MEDS ORDERED: *HR* Rivaroxaban 10 MG TABLET PO SCH (17:00)
[2018-07-23] MEDS: 0.9 % Sodium Chloride 1,000 ML IVC SCH (18:08)
[2018-07-23] MEDS ORDERED: traMADol 50 MG TABLET PO SCH (21:00)
[2018-07-24 00:51] LABS: Hematocrit 33.5 % (35.3-44.9); Mean Corpuscular HGB Conc 32.8 g/dL (31.6-35.5); Mean Corpuscular Hemoglobin 29.5 pg (28.0-33.3); Mean Corpuscular Volume 89.8 fL (83.0-100.0); Mean Platelet Volume 8.8 fL (9.4-12.4); Platelet Count 164 K/mcL (140-400); Red Blood Count 3.73 M/mcL (3.82-4.97); Red Cell Distribution Width 15.1 % (11.5-14.5)
[2018-07-24 01:28] LABS: Lymphocytes # 1.1 K/mcL (0.6-4.6); Monocytes # 0.1 K/mcL (0.0-1.3); Neutrophils # 4.6 K/mcL (1.6-8.9); Platelet Estimate Normal (Normal); Toxic Granulation Present (Not Present)
[2018-07-24 01:29] LABS: Reactive Lymphocytes Present (Not Present)
[2018-07-24] MEDS: 0.9 % Sodium Chloride 1,000 ML IVC SCH (05:01)
[2018-07-24 06:18] LABS: Acinetobacter baumannii by PCR Not Detected (Not Detect); Candida albicans by PCR Not Detected (Not Detect); Candida glabrata by PCR Not Detected (Not Detect); Candida krusei by PCR Not Detected (Not Detect); Candida parapsilosis by PCR Not Detected (Not Detect); Candida tropicalis by PCR Not Detected (Not Detect); Enterobacter cloacae Cmplx PCR Not Detected (Not Detect); Enterobacteriaceae by PCR DETECTED (Not Detect); Enterococcus by PCR Not Detected (Not Detect); Escherichia coli by PCR DETECTED (Not Detect); Klebsiella oxytoca by PCR Not Detected (Not Detect); Klebsiella pneumoniae by PCR Not Detected (Not Detect); Proteus by PCR Not Detected (Not Detect); Pseudomonas aeruginosa by PCR Not Detected (Not Detect); Serratia marcescens by PCR Not Detected (Not Detect); Staphylococcus aureus by PCR Not Detected (Not Detect); Staphylococcus by PCR Not Detected (Not Detect); Streptococcus agalactiae(B)PCR Not Detected (Not Detect); Streptococcus by PCR Not Detected (Not Detect); Streptococcus pneumoniae PCR Not Detected (Not Detect); Streptococcus pyogenes (A) PCR Not Detected (Not Detect); blaKPC Carbapenem-Resist Gene Not Detected (Not Detect)
[2018-07-24] MEDS ORDERED: cefTRIAXone 2,000 MG in 0.9 % Sodium Chloride Mini Bag 100 ML IVPB SCH (07:00)
[2018-07-24 08:47] LABS: Potassium 3.2 mEq/L (3.5-5.1)
[2018-07-24 08:48] LABS: Calcium 8.8 mg/dL (8.6-10.3); Magnesium 1.4 mg/dL (1.6-2.6)
[2018-07-24 08:54] LABS: Hematocrit 29.4 % (35.3-44.9); Hemoglobin 9.5 g/dL (11.5-15.4); Mean Corpuscular HGB Conc 32.3 g/dL (31.6-35.5); Mean Corpuscular Hemoglobin 29.4 pg (28.0-33.3); Mean Platelet Volume 9.9 fL (9.4-12.4); Platelet Count 145 K/mcL (140-400); Red Blood Count 3.23 M/mcL (3.82-4.97); Red Cell Distribution Width 15.2 % (11.5-14.5)
--- NOTE | 2018-07-24 09:09 | Electrocardiograph Report ---
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
[2018-07-24 09:13] LABS: Troponin I 0.21 ng/mL (< 0.04)
[2018-07-24] MEDS ORDERED: Isovue-370 500 ML INFUS..BTL IV ONE (09:16)
[2018-07-24 09:40] LABS: Lymphocytes # 2.5 K/mcL (0.6-4.6); Monocytes # 0.7 K/mcL (0.0-1.3); Neutrophils # 14.5 K/mcL (1.6-8.9); Platelet Estimate Normal (Normal)
[2018-07-24] MEDS: 0.9 % Sodium Chloride w KCl 40 MEQ/1,000 ML MLS IVC SCH ×2 (11:59→21:04)
--- NOTE | 2018-07-24 14:08 | Internal Med Progress Note ---
Hospitalist Progress Note - Encounter Date of Encounter: 07/24/18 Time of Encounter: 10:20 - Subjective Interval History: states that her nausea mildly improved but had an episode where she had uncontrollable chills. Continues to deny significant cough, sputum, abdominal pain, or diarrhea. Noted that she now has 18% bands and GNR bacteremia - Exam Vitals: Temp Pulse Resp BP Pulse Ox 99.2 F 112 22 146/78 95 07/24/18 11:34 07/24/18 11:34 07/24/18 11:34 07/24/18 11:34 07/24/18 11:34 Exam: General: Alert and oriented, not in distress Cardiovascular:Normal S1 & S2, No JVD. Pulse regular. Lungs: equal breath sounds bilaterally, no wheezes/rales Abdomen:Soft, non-tender, midline scar well-healed. No guarding/rebound/rigidity Extremities:No deformity or swelling Neurological:Normal cognition and motor skills. Non-focal Skin:Normal color, no rash, no lesions. - Assessment and Plan (1) Sepsis Current Visit: Yes Status: Acute Assessment and Plan: presented with non-specific symptoms of nausea and weakness, now with bandemia and tachycardia along with GNR bacteremia respiratory rate variable but as high as 24/min 3/4 SIRS criteria +ve unclear where the source of GNR is, CT chest was unremarkable given her relatively recent GI surgery, will check CT abdo/pelvis Urinalysis start zosyn for pseudomonal + anaerobic coverage ID consult (2) Gram-negative bacteremia Current Visit: Yes Status: Acute Assessment and Plan: as above, unclear source as of now (3) CECILLE (acute kidney injury) Current Visit: Yes Status: Acute Assessment and Plan: improving, continue IVF (4) Elevated troponin I level Current Visit: Yes Status: Acute Assessment and Plan: a/w no new EKG changes, previously was noted to be in the range of 0.04-0.06 trended upto 0.21 in the absence of chest pain but with GNR sepsis, likely a demand ischemia still regardless, patient is on xarelto for Afib. Loaded with ASA in the ED will continue to trend and check Echo consult cardio if her clinical course changes (5) PAF (paroxysmal atrial fibrillation) Current Visit: Yes Status: Acute Assessment and Plan: currently in sinus rhythm xarelto for AC, she has not been taking diltiazem at home if develops RVR, will resume diltiazem (6) Hypertension Current Visit: No Status: Chronic Assessment and Plan: hold off on HCTZ/lisinopril given CECILLE (7) Hypothyroidism Current Visit: No Status: Chronic Assessment and Plan: resume home meds (8) DVT prophylaxis Current Visit: No Status: Acute Assessment and Plan: on xarelto - Time Spent with Patient Total time spent is greater than 50% in coordination of care (as documented) at patient's floor/unit and/or counseling patient: Plan of Care Discussed with: nurse Internal Medicine: Result - Labs CBC & Chem 7: 07/24/18 06:55 07/24/18 08:01 Labs: Short CBC 07/24/18 07/24/18 Range/Units 00:40 06:55 WBC 6.1 D 17.7 H D (4.3-11.1) K/mcL Hgb 11.0 L 9.5 L D (11.5-15.4) g/dL Hct 33.5 L 29.4 L (35.3-44.9) % Plt Count 164 145 (140-400) K/mcL Neutrophils # 4.6 14.5 H (1.6-8.9) K/mcL BMP 07/24/18 08:01 Sodium 134 L Potassium 3.2 L Chloride 103 Carbon Dioxide 25 BUN 29 H Creatinine 1.11 Glucose 150 H Calcium 8.8 Cardiac Enzymes 07/23/18 07/24/18 07/24/18 Range/Units 17:17 01:55 08:01 Troponin I 0.04 H* 0.19 H* 0.21 H* (< 0.04) ng/mL - ABG Interpretation ABG results: PT/INR, D-dimer D-Dimer 890 ng/mLFEU (0-500) H 07/23/18 17:00 - Impressions Impressions Chest CT 07/23/18 16:57 IMPRESSION: No evidence for pneumonia. Mild right lower lobe scarring/atelectasis. Chronic elevation of the left hemidiaphragm due to left lower lobe volume loss. D/ / Tunde Dewey MD / Tunde Dewey MD Interpreting Provider: Tunde Dewey MD Abdomen/Pelvis CT 07/24/18 09:16 IMPRESSION: 1. No CT evidence for acute intra-abdominal process. 2. Diverticulosis without CT evidence of diverticulitis. 3. Small bilateral pleural effusions with likely associated atelectasis. 4. Other stable findings, as above. D/ / Jatinder Caceres / Jatinder Caceres Interpreting Provider: Jatinder Caceres Consult Discharge Plan - Plan Referrals: Maxwell Ramos MD [Primary Care Provider] - (1) Sepsis Qualifiers: Sepsis type: sepsis due to unspecified organism Qualified Code(s): A41.9 - Sepsis, unspecified organism (6) Hypertension Qualifiers: Hypertension type: essential hypertension Qualified Code(s): I10 - Essential (primary) hypertension (7) Hypothyroidism Qualifiers: Hypothyroidism type: unspecified Qualified Code(s): E03.9 - Hypothyroidism, unspecified
--- NOTE | 2018-07-24 15:08 | Infectious Disease Consult ---
Date of Encounter: 07/24/18 Time of Encounter: 15:07 Assessment and Plan (1) Sepsis Status: Acute Assessment and plan: The patient had two SIRS criteria on admission. Likely secondary to bacteremia. Improved. WBC normal, but has bandemia. No documented fevers, but the patient has been noted to have chills and rigors while here in the hospital. Continues to have some intermittent tachycardia. Blood cultures drawn 07/23/18 are positive 2/2 sets for E. coli per PCR. Qualifiers: Sepsis type: sepsis due to unspecified organism Qualified Code(s): A41.9 - Sepsis, unspecified organism (2) Gram-negative bacteremia Status: Acute Assessment and plan: Causative organism: E. coli per PCR. Source: Unclear. CT abdomen and pelvis negative for intra-abdominal source. Could be the urine as the patient does report some urinary frequency. Blood cultures drawn 07/23/18 are positiv e2/2 sets for E. coli per PCR, sensitivities are pending. Repeat blood cultures x 2 sets in the AM. Check urinalysis and culture. Continue Zosyn 3.375 grams IV Q8H. Duration of treatment depends on the clinical picture. Monitor renal function and for drug toxicity and dose-adjust antibiotics. (3) Shortness of breath Status: Acute Assessment and plan: Etiology unclear. CT of the chest was negative for pneumonia or pleural effusion. Supportive care per the primary team. (4) Nausea and vomiting Status: Acute Assessment and plan: Persistent nausea and poor appetite since her surgery in May. Consider GI consult to evaluate. Qualifiers: Vomiting type: unspecified Vomiting Intractability: intractable Qualified Code(s): R11.2 - Nausea with vomiting, unspecified (5) Hyponatremia Status: Acute Assessment and plan: Likely secondary to poor PO intake since her surgery. Further workup and management per the primary team. (6) Elevated troponin Status: Acute Assessment and plan: Cardiology consult pending. (7) Atrial fibrillation with controlled ventricular rate Status: Acute (8) Hypertension Status: Chronic Qualifiers: Hypertension type: essential hypertension Qualified Code(s): I10 - Essential (primary) hypertension (9) Hypothyroidism Status: Chronic Qualifiers: Hypothyroidism type: unspecified Qualified Code(s): E03.9 - Hypothyroidism , unspecified Infectious Disease HPI - Data of Consult Patient: new to practice Consult date: 07/25/18 Requesting Physician: Jaspal Reina MD Primary Care Provider: Maxwell Ramos MD - Consult Narrative Reason for consult: Bacteremia History of present illness: Ms. Wolf is a 78 year old female with medical history of GERD, hyperlipidemia , hypertension, hypothyroid, A. fib, status post exploratory laparotomy for gastric volvulus with niece and fundoplication and hiatal hernia repair in May 2018. The patient was admitted to the hospital July 23 for shortness of breath and elevated troponin. We are consulted July 24 for further recommendations for gram-negative bacteremia. Since 78-year-old female with a past medical history as stated above. The patient presented to the emergency department with a one-week history of shortness of breath, nausea, weakness, and fatigue. She states that she has not really gotten back to baseline from her surgery back in May and has had a pretty poor appetite since then. Upon arrival, the patient was mildly tachycardic. Her white blood cell count was 17,000 with neutrophilic predominance. She had a normal lactic acid and normal serum creatinine. Her mildly elevated troponin was noted. She had a chest x-ray that showed a minimal left basilar atelectasis. Cultures were obtained 2 sets. The patient was admitted to the hospital for further evaluation. Since admission, the patient has remained afebrile and hemodynamically stable. Her blood cultures that were drawn on the came back +2 out of 2 sets for Escherichia coli per the PCR. She had a CT of the chest that showed mild right lower lobe scarring without evidence of pneumonia. She had a CT of the abdomen and pelvis that showed diverticulosis without diverticulitis, and was negative for any other acute abnormality. Today, her white blood cell count is normal, but she has 18% bands. Her troponin continues to be elevated and cardiology has been consulted. She was started on Zosyn empirically for the positive blood cultures. We have been asked to evaluate and make further recommendations. During my exam today, the patient endorses the history as stated above. She denies any fevers or chills or rigors at home, but documentation reflects that she has had significant chills and rigors while here in the hospital. There has been no documented fevers. She denies any chest pain, but states she has been short of breath, mainly with exertion. She denies a cough. She reports persistent nausea and poor appetite with some intermittent vomiting. No blood in the vomit that she has been aware of. She denies abdominal pain or urinary complaints other than urinary frequency. She denies flank pain or back pain. She denies abdominal pain. She denies pain in her joints or extremities. She denies oral thrush or new skin lesions. As a home with her family. She denies any tobacco, alcohol, or illicit drug use. She denies any chronic infectious diseases. CC: Jaspal Reina MD Past Med Surg Social Fam HX - Past Medical History Attestation: Yes The following information was validated with the patient. Source: patient, old records reviewed, nursing notes reviewed Medical history: atrial fibrillation, GERD, hyperlipidemia, hypertension, thyroid disease Psychiatric history: no psych history - Past Surgical History Surgical History: hysterectomy Additional surgical history: exploratory laparotomy with reduction of gastric volvulus, hiatal hernia repair, Jairo fundoplication - Social History Smoking Status: Never smoker Smokeless Tobacco Status: No Alcohol use: none Drug use: none Occupational status: retired Current living situation: Home, With Family Activity Level: Independent ambulation Recent Out of Country Travel Within the Last 8 Weeks: No Exposure or Possible Exposure to Illness During Travel: No - Family History Son Living Status: Hx Family Cancer: Yes (Liver cancer) Infectious Disease-CN:Meds Levothyroxine Sodium 75 mcg PO 0630 01/09/18 [History] Simvastatin [Zocor] 10 mg PO HS 01/09/18 [History] Lisinopril-HCTZ 10-12.5 [Prinzide 10-12.5] 1 tab PO DAILY 05/13/18 [History] Tramadol HCl [Ultram] 50 mg PO HS 05/13/18 [History] Omeprazole [PriLOSEC] 40 mg PO DAILY@0730 4 Days #4 capsule. 05/27/18 [Rx] Rivaroxaban [Xarelto] 20 mg PO 1700 4 Days #4 tablet 05/27/18 [Rx] Potassium Chloride 20 mg PO DAILY 07/23/18 [History] 3 Allergy/AdvReac Type Severity Reaction Status Date / Time tramadol AdvReac Dizziness Verified 07/23/18 13:28 All systems: reviewed and no additional remarkable complaints except as stated Exam - Constitutional Vitals: Temp Pulse Resp BP Pulse Ox 99.2 F 112 22 146/78 95 07/24/18 11:34 07/24/18 11:34 07/24/18 11:34 07/24/18 11:34 07/24/18 11:34 General appearance: average body habitus, cooperative, no acute distress - Head Head exam: Present: atraumatic, normal inspection, normocephalic - Eye Eye exam: Present: EOMI, normal appearance, PERRL Pupils: Present: normal accommodation - ENT ENT exam: Present: mucous membranes moist - Neck Neck exam: Present: normal inspection - Respiratory Respiratory exam: Present: CTAB. Absent: rales, respiratory distress, rhonchi, wheezes - Cardiovascular Cardiovascular exam: Present: RRR, +S1, +S2 - GI/Abdominal GI/Abdominal exam: Present: normal bowel sounds, soft. Absent: distended, tenderness - Extremities Exam Extremities exam: Present: normal inspection. Absent: joint swelling, pedal edema, tenderness - Back Exam Back exam: Present: normal inspection. Absent: CVA tenderness (L), CVA tenderness (R), paraspinal tenderness, vertebral tenderness - Neurological Exam Neurological exam: Present: alert, oriented X3, no focal deficits - Psychiatric Psychiatric exam: Present: normal affect, normal mood - Skin Skin exam: Present: dry, intact, normal color, warm Infectious Disease CN: Results - Labs CBC & Chem 7: 07/25/18 05:08 07/25/18 05:08 Cultures: Cultures 07/23/18 17:17 Blood Culture - Preliminary Peripheral Venipuncture Gram Negative Conor 07/23/18 17:00 Blood Culture - Preliminary Peripheral Venipuncture Gram Negative Conor Serology: Serology 07/23/18 Range/Units 17:00 A. baumannii (PCR) Not Detected (Not Detect) Linda albicans (PCR) Not Detected (Not Detect) C. glabrata (PCR) Not Detected (Not Detect) C. krusei (PCR) Not Detected (Not Detect) C. parapsilosis (PCR) Not Detected (Not Detect) C. tropicalis (PCR) Not Detected (Not Detect) Enterobacteriac sp PCR DETECTED A (Not Detect) E. cloacae complex PCR Not Detected (Not Detect) Enterococcus sp PCR Not Detected (Not Detect) E. coli (PCR) DETECTED A (Not Detect) H. influenzae (PCR) Not Detected (Not Detect) Klebsiella oxytoca PCR Not Detected (Not Detect) Klebsiella pneumoniae Not Detected (Not Detect) List. monocytogenes PCR Not Detected (Not Detect) N. meningitidis (PCR) Not Detected (Not Detect) Proteus species (PCR) Not Detected (Not Detect) Serratia marcescens PCR Not Detected (Not Detect) Staphylococcus sp PCR Not Detected (Not Detect) Staph aureus (PCR) Not Detected (Not Detect) mecA-Methicil Res Gene N/A (Not Detect) Streptococcus sp PCR Not Detected (Not Detect) Group A Strep DNA Not Detected (Not Detect) Group B Strep (PCR) Not Detected (Not Detect) Strep pneumoniae (PCR) Not Detected (Not Detect) P. aeruginosa (PCR) Not Detected (Not Detect) Farzana/B-Vanco Res Genes N/A (Not Detect) KPC (blaKPC) Detect PCR Not Detected (Not Detect) Consult Discharge Plan - Plan Referrals: Maxwell Ramos MD [Primary Care Provider] -
[2018-07-24] MEDS: Piperacillin/Tazobactam 3.375 GM in 0.9 % Sodium Chloride Mini Bag 100 ML IVPB SCH (16:08)
[2018-07-24] MEDS: *HR* Rivaroxaban 15 MG TABLET PO SCH (16:08)
[2018-07-24] MEDS ORDERED: 0.9 % Sodium Chloride 500 ML IVC ONE (16:09)
[2018-07-24] MEDS ORDERED: 0.9 % Sodium Chloride 500 ML ONE (16:10)
[2018-07-24 17:54] LABS: Bilirubin,Urine Negative (Negative); Blood,Urine Moderate (Negative); Clarity,Urine Turbid (Clear); Color,Urine Yellow (Yellow); Glucose,Urine (UA) Normal (Normal); Ketones,Urine Trace mg/dL (Negative); Leukocyte Esterase,Urine Large (Negative); Nitrite,Urine Negative (Negative); Protein,Urine 100 mg/dL (Neg-Trace); Specific Gravity,Urine > 1.030 (1.010-1.025); Urobilinogen,Urine Normal (Normal)
[2018-07-24 17:56] LABS: Bacteria,Urine Moderate per hpf (None-Few); Hyaline Casts,Urine None Seen per lpf (None-Few); Squamous Epithelial Cell,Urine Many per lpf (None-Few); WBC,Urine TNTC per hpf (0-3)
[2018-07-25] MEDS: Piperacillin/Tazobactam 3.375 GM in 0.9 % Sodium Chloride Mini Bag 100 ML IVPB SCH ×3 (01:09→16:31)
[2018-07-25 05:21] LABS: Hematocrit 26.9 % (35.3-44.9); Hemoglobin 8.7 g/dL (11.5-15.4); Mean Corpuscular HGB Conc 32.3 g/dL (31.6-35.5); Mean Corpuscular Hemoglobin 29.5 pg (28.0-33.3); Mean Corpuscular Volume 91.2 fL (83.0-100.0); Mean Platelet Volume 9.7 fL (9.4-12.4); Platelet Count 103 K/mcL (140-400); Red Blood Count 2.95 M/mcL (3.82-4.97); Red Cell Distribution Width 15.4 % (11.5-14.5)
[2018-07-25 05:41] LABS: Calcium 8.1 mg/dL (8.6-10.3); Chol/HDL Ratio 8.6 (0-4.9); Magnesium 1.9 mg/dL (1.6-2.6); Potassium 3.8 mEq/L (3.5-5.1)
[2018-07-25] MEDS: 0.9 % Sodium Chloride w KCl 40 MEQ/1,000 ML MLS IVC SCH ×3 (05:59→21:52)
[2018-07-25 06:04] LABS: Lymphocytes # 3.7 K/mcL (0.6-4.6); Monocytes # 0.3 K/mcL (0.0-1.3); Neutrophils # 12.1 K/mcL (1.6-8.9)
[2018-07-25 06:05] LABS: Platelet Estimate Normal (Normal)
--- NOTE | 2018-07-25 10:09 | Cardiology Consult Note ---
<SangIris - Last Filed: 07/25/18 10:14> Date of Encounter: 07/25/18 Time of Encounter: 07:30 Assessment and Plan (1) Sepsis Current Visit: Yes Status: Acute Per cardiology: -Admitted with sepsis. -Blood cultures positive for gram negative alex. -ON ATB. -Management per primary service. Qualifiers: Sepsis type: sepsis due to unspecified organism Qualified Code(s): A41.9 - Sepsis, unspecified organism (2) Elevated troponin I level Current Visit: Yes Status: Acute Per cardiology: -Troponins noted to be elavated 0.04, 0.04, 0.19, 0.21, 0.68, 0.36 in the setting of sepsis, bacteremia, mild CECILLE, anemia. -Patient denies chest pain. -ECG with no acute ischemic changes noted. -TTE 05/2018 with LVEF 60%, mild diastolic dysfunction, no segmental wall motion abnormalities noted. -Repeat TTE with LVEF preserved, no segmental wall motion abnormalities noted. -On statin. NOt on asa due to thrombocytopenia. Not on BB due to hypotension. Not on heparin due to anticoagulated with xarelto. -Patient is currently not a candidate for invasive cardiac procedures due to anemia, thrombocytopenia, and bacteremia. Discussed and reviewed with patient. -Consider addition of low dose ASA and low dose BB, if patient can tolerate. (3) PAF (paroxysmal atrial fibrillation) Current Visit: Yes Status: Acute Per cardiology: -Recently diagnosed with PAF 05/2018. -Patient was started on xarelto for anticoagulation. [id number] score 4 (gender , age, HTN). -Now with worsening anemia. Hemoglobin on admission 10.9, now 8.7. No active signs of bleeding. -Currently SR, HR controlled. Not on AV jenna blockers. Of note, BPs have been 90-110s systolic. -Consider addition of low dose BB, if patient will tolerate. -Recommend stopping xarelto if hemoglobin continues to decline or any active signs of bleeding. Discussion w patient/family: The assessment and plan as outlined above was discussed with the patient who expressed understanding and agreement. All questions were answered. Thank you for involving us in the care of your patient. Please call with any questions. Discussed and reviewed with . History of Present Illness Consult date: 07/24/18 Requesting physician: Jaspal Reina Consult reason: elevated troponin Chief complaint: shortness of breath History of present illness: Ms. Wolf is a 78 year old female with a relevant past medical history of HTN, thyroid dysfunction, atrial fibrillation, recent exploratory laparatomy 05/2018 who was admitted to [facility] with complaints of shortness of breath, fever, and chills. Patient denies chest pain. Currently denies shortness of breath. Patient denies bleeding or blood loss. Past Med Surg Social Fam HX - Past Medical History Attestation: Yes The following information was validated with the patient. Source: patient, old records reviewed Medical history: atrial fibrillation, GERD, hyperlipidemia, hypertension, thyroid disease Psychiatric history: no psych history - Past Surgical History Surgical History: hysterectomy Additional surgical history: exploratory laparotomy with reduction of gastric volvulus, hiatal hernia repair, Jairo fundoplication - Social History Smoking Status: Never smoker Smokeless Tobacco Status: No Alcohol use: none Drug use: none - Family History Son Living Status: Hx Family Cancer: Yes (Liver cancer) Medications and Allergies Levothyroxine Sodium 75 mcg PO 0630 01/09/18 [History] Simvastatin [Zocor] 10 mg PO HS 01/09/18 [History] Lisinopril-HCTZ 10-12.5 [Prinzide 10-12.5] 1 tab PO DAILY 05/13/18 [History] Tramadol HCl [Ultram] 50 mg PO HS 05/13/18 [History] Omeprazole [PriLOSEC] 40 mg PO DAILY@0730 4 Days #4 capsule. 05/27/18 [Rx] Rivaroxaban [Xarelto] 20 mg PO 1700 4 Days #4 tablet 05/27/18 [Rx] Potassium Chloride 20 mg PO DAILY 07/23/18 [History] 3 Allergy/AdvReac Type Severity Reaction Status Date / Time tramadol AdvReac Dizziness Verified 07/23/18 13:28 All Systems Review: The remainder of the systems were reviewed and are negative - Constitutional Constitutional: chills, fatigue - Cardiovascular Cardiovascular: as per HPI, dyspnea on exertion Physical Examination Vital Signs, Last 4 Hours Temp Pulse Resp BP Pulse Ox 07/25/18 06:51 97.7 F 75 18 123/80 99 General: Conversant, No Apparent Distress HEENT: Atraumatic, Normocephaly, Mucus Membranes Moist Neck: No JVD, Normal carotid pulses Cardiac: Reg Rate and Rhythm, Normal S1 and S2, No Murmur Lungs: Normal Breath Sounds, No Wheeze, Rales, Rhonchi Neuro: Alert and responsive, No focal deficits noted Abdomen: Soft, Non-Tender Skin: No rashes noted on visualized skin Musculoskeletal: No Chest Wall Tenderness Extremities: No Clubbing, No Cyanosis, No Edema, Normal Pulses Results 07/25/18 05:08 07/25/18 05:08 Lab Results Impressions Abdomen/Pelvis CT 07/24/18 09:16 IMPRESSION: 1. No CT evidence for acute intra-abdominal process. 2. Diverticulosis without CT evidence of diverticulitis. 3. Small bilateral pleural effusions with likely associated atelectasis. 4. Other stable findings, as above. D/ / Jatinder Caceres / Jatinder Caceres Interpreting Provider: Jatinder Caceres Echocardiogram Limited Views 07/24/18 14:58 Impressions: LVEF 55%. Normal LV wall motion. Grossly RV appears dilated with borderline normal function on this limited study. Left Ventricular Wall Motion: Rest Echo Findings All wall segments showed normal motion. Findings: Study Quality * Technically adequate exam. ECG Findings * Normal sinus rhythm. Left Ventricle * LVEF 55%. * Asymmetric basal septal hypertrophy. Right Ventricle * Grossly RV appears dilated with borderline normal function on this limited study. Left Atrium * Moderately dilated left atrium. Right Atrium * Mildly dilated right atrium. Active Medications Piperacillin Sod/Tazobactam (Sod 3.375 gm/ Sodium Chloride) 100 mls @ 25 mls/ hr IVPB Q8HR [facility] Stop: 01/23/19 16:01 Last Admin: 07/25/18 07:35 Dose: 25 mls/hr Potassium Chloride/Sodium Chloride (Kcl 40meq In 0.9% Sodium Chloride) 40 meq in 1,000 mls @ 125 mls/hr IVC .Q8H [facility] Stop: 01/23/19 11:16 Last Admin: 07/25/18 05:59 Dose: 125 mls/hr Levothyroxine Sodium (Synthroid) 75 mcg PO 0630 DEDE Stop: 01/23/19 06:31 Last Admin: 07/25/18 05:59 Dose: 75 mcg Naloxone HCl (Narcan) 0.4 mg IVP Q2MIN PRN PRN Reason: SEE COMMENTS Stop: 01/22/19 14:12 Omeprazole (Prilosec) 40 mg PO DAILY@0730 DEDE PRN Reason: Protocol Stop: 01/23/19 07:31 Last Admin: 07/25/18 07:34 Dose: 40 mg Ondansetron HCl (Zofran) 4 mg IVP Q8HR PRN; Protocol PRN Reason: Nausea And Vomiting Stop: 01/22/19 16:18 Promethazine HCl (Phenergan) 12.5 mg IVP Q6HR PRN PRN Reason: Nausea And Vomiting Stop: 01/22/19 16:18 Rivaroxaban (Xarelto) 15 mg PO 1700 [facility] Stop: 01/23/19 17:01 Last Admin: 07/24/18 16:08 Dose: 15 mg Simvastatin (Zocor) 10 mg PO HS [facility] Stop: 01/22/19 21:01 Last Admin: 07/24/18 21:03 Dose: 10 mg Laboratory Tests 07/23/18 07/23/18 07/23/18 11:45 11:45 17:17 WBC Hgb 10.9 L Plt Count 222 Creatinine 1.23 H Troponin I 0.04 H* 0.04 H* 07/24/18 07/24/18 07/24/18 01:55 08:01 14:04 WBC Hgb Plt Count Creatinine Troponin I 0.19 H* 0.21 H* 0.68 H* 07/25/18 07/25/18 07/25/18 05:08 05:08 05:08 WBC 16.8 H Hgb 8.7 L Plt Count 103 L Creatinine 1.16 Troponin I 0.36 H* - Imaging and Cardiology Chest Xray: report reviewed Echo: report reviewed - EKG Interpretation EKG results cardiology: personally reviewed (ECG with SR, HR 85.), other ( Telemety reviewed with average HR previous 12 hours noted to be 72, SR. PVCs and PACs noted.) Consult Discharge Plan - Plan Referrals: Maxwell Ramos MD [Primary Care Provider] - <Yamilet Kiser - Last Filed: 07/25/18 10:32> Date of Encounter: 07/25/18 - Attending Attestation I personally interviewed and examined this patient. I have reviewed all the pertinent clinical, radiologic and laboratory findings. I agree with the findings, assessment and plan as outlined by the nurse practitioner with the following additional comments: Ms. Wolf is a 78 year old female presenting with sepsis incidentally discovered to have elevated troponins, 0.68 now downtrending. Patient denies chest pain at the bedside. She is AAOx3 but ill appearing. Hemodynamically stable No concerning exam findings. Echo demonstrates preserved LV systolic function and normal RV function. Impression/Plan: 1. Elevated troponin - etiology unclear possibly related to demand ischemia. Patient is ill appearing at bedside and Hgb/Plt counts have decreased. Recommend considering ischemic evaluation when patient recovers and blood counts improve. This can be done as outpatient. Continue statin. 2. PAF - Started on xarelto in May 2018 now with worsening anemia. No active signs of bleeding at this time. If Hgb decreases further or if bleeding is apparent, then would stop xarelto and complete GI workup. Currently in NSR. Not on AVN blockers - SBPs borderline. No further recommendations at this time. Please call with questions if clinical status warrants. Will sign off. Assessment and Plan Discussion w patient/family: The assessment and plan as outlined above was discussed with the patient and/or family members who expressed understanding and agreement. All questions were answered. Thank you for involving us in the care of your patient. Please call with any questions. History of Present Illness History of present illness: Ms. Wolf is a 78 year old female All Systems Review: The remainder of the systems were reviewed and are negative Physical Examination Vital Signs, Last 4 Hours Temp Pulse Resp BP Pulse Ox 07/25/18 06:51 97.7 F 75 18 123/80 99 Results 07/25/18 05:08 07/25/18 05:08 Lab Results 07/25/18 07/25/18 07/25/18 05:08 05:08 05:08 WBC 16.8 H Hgb 8.7 L Hct 26.9 L Plt Count 103 L Sodium 133 L Potassium 3.8 Chloride 107 Carbon Dioxide 21 L BUN 28 H Creatinine 1.16 Glucose 104 Calcium 8.1 L Magnesium 1.9 Troponin I 0.36 H*
--- NOTE | 2018-07-25 10:44 | Internal Med Progress Note ---
Hospitalist Progress Note - Encounter Date of Encounter: 07/25/18 Time of Encounter: 09:40 - Subjective Interval History: Feels much better today, nausea significantly improved and did not have any more chills. Does not complain of any dysuria, flank pain, or suprapubic discomfort. No melena, hematochezia, BRBPR, or hematemesis. - Exam Vitals: Temp Pulse Resp BP Pulse Ox 97.7 F 75 18 123/80 99 07/25/18 06:51 07/25/18 06:51 07/25/18 06:51 07/25/18 06:51 07/25/18 06:51 Exam: General: Alert and oriented, not in distress Cardiovascular:Normal S1 & S2, No JVD. Pulse regular. Lungs: equal breath sounds bilaterally, no wheezes/rales Abdomen:Soft, non-tender, midline scar well-healed. No guarding/rebound/rigidity Extremities:No deformity or swelling Neurological:Normal cognition and motor skills. Non-focal Skin:Normal color, no rash, no lesions. - Assessment and Plan (1) Sepsis Current Visit: Yes Status: Acute Assessment and Plan: presented with non-specific symptoms of nausea and weakness then developed bandemia and tachycardia along with GNR bacteremia respiratory rate variable but as high as 24/min 3/4 SIRS criteria +ve blood culture growing GNR, PCR +ve for enterobacter and E.coli was started on zosyn given her relatively recent GI surgery and suspicion for GI source of bactermia -> however, CT abdo/pelvis was unremarkable Urinalysis showed large amount of LE, no pyelonephritis on imaging -> please send urine culture clinically improving, will continue zosyn and de-escalate based on final blood culture sensitivity Follow with ID (2) Gram-negative bacteremia Current Visit: Yes Status: Acute Assessment and Plan: as above (3) Elevated troponin I level Current Visit: Yes Status: Acute Assessment and Plan: a/w no new EKG changes, previously was noted to be in the range of 0.04-0.06 trended upto as high as 0.68 in the absence of chest pain. EF shows preserved EF and no wall motion abnormalities patient is on xarelto for Afib. Loaded with ASA in the ED drop in Hb likely due to sepsis, low suspicion for bleeding will check FOBT before starting low dose asa monitor BP today and start bb if continues to be normal appreciate cardiology's input (4) Anemia Current Visit: Yes Status: Acute Assessment and Plan: likely due to sepsis but will get FOBT to make sure monitor (5) Thrombocytopenia Current Visit: Yes Status: Acute Assessment and Plan: sepsis-related, no evidence of bleeding continue xarelto unless FOBT is +ve (6) CECILLE (acute kidney injury) Current Visit: Yes Status: Acute Assessment and Plan: unchanged from yesterday ?ATN, continue IVF (7) PAF (paroxysmal atrial fibrillation) Current Visit: Yes Status: Acute Assessment and Plan: currently in sinus rhythm xarelto for AC, she has not been taking diltiazem at home if develops RVR, will start low dose bb per cardiology (8) Hypothyroidism Current Visit: No Status: Chronic Assessment and Plan: resume home meds (9) DVT prophylaxis Current Visit: No Status: Acute Assessment and Plan: on xarelto - Time Spent with Patient Total time spent is greater than 50% in coordination of care (as documented) at patient's floor/unit and/or counseling patient: Plan of Care Discussed with: nurse Internal Medicine: Result - Labs CBC & Chem 7: 07/25/18 05:08 07/25/18 05:08 Labs: Short CBC 07/25/18 Range/Units 05:08 WBC 16.8 H (4.3-11.1) K/mcL Hgb 8.7 L (11.5-15.4) g/dL Hct 26.9 L (35.3-44.9) % Plt Count 103 L (140-400) K/mcL Neutrophils # 12.1 H (1.6-8.9) K/mcL BMP 07/25/18 05:08 Sodium 133 L Potassium 3.8 Chloride 107 Carbon Dioxide 21 L BUN 28 H Creatinine 1.16 Glucose 104 Calcium 8.1 L Cardiac Enzymes 07/25/18 Range/Units 05:08 Troponin I 0.36 H* (< 0.04) ng/mL Urine 07/24/18 Range/Units 17:45 Urine Color Yellow (Yellow) Urine Clarity Turbid A (Clear) Urine pH 6.0 (5.0-8.0) pH Units Ur Specific [place] > 1.030 H (1.010-1.025) Urine Protein 100 H (Neg-Trace) mg/dL Urine Glucose (UA) Normal (Normal) mg/dL - ABG Interpretation ABG results: PT/INR, D-dimer D-Dimer 890 ng/mLFEU (0-500) H 07/23/18 17:00 Consult Discharge Plan - Plan Referrals: Maxwell Ramos MD [Primary Care Provider] - (1) Sepsis Qualifiers: Sepsis type: sepsis due to unspecified organism Qualified Code(s): A41.9 - Sepsis, unspecified organism (4) Anemia Qualifiers: Anemia type: other cause Other causes of anemia: other cause, not classified Qualified Code(s): D64.89 - Other specified anemias (8) Hypothyroidism Qualifiers: Hypothyroidism type: unspecified Qualified Code(s): E03.9 - Hypothyroidism, unspecified
[2018-07-25 13:27] LABS: Estimated Average Glucose 85 mg/dl; Hemoglobin A1C 4.6 %
[2018-07-25] MEDS: *HR* Rivaroxaban 15 MG TABLET PO SCH (16:31)
[2018-07-26] MEDS: Piperacillin/Tazobactam 3.375 GM in 0.9 % Sodium Chloride Mini Bag 100 ML IVPB SCH ×3 (00:13→16:28)
[2018-07-26 04:43] LABS: Basophils % 0.1 %; Eosinophils # 0.1 K/mcL (0.0-0.6); Eosinophils % 0.4 %; Hematocrit 27.7 % (35.3-44.9); Hemoglobin 8.8 g/dL (11.5-15.4); Immature Granulocytes % 1.6 % (0-4); Lymphocytes # 2.1 K/mcL (0.6-4.6); Lymphocytes % 14.7 %; Mean Corpuscular HGB Conc 31.8 g/dL (31.6-35.5); Mean Corpuscular Hemoglobin 29.2 pg (28.0-33.3); Mean Platelet Volume 9.9 fL (9.4-12.4); Monocytes # 0.8 K/mcL (0.0-1.3); Monocytes % 5.9 %; Neutrophils # 10.9 K/mcL (1.6-8.9); Platelet Count 115 K/mcL (140-400); Red Blood Count 3.01 M/mcL (3.82-4.97); Red Cell Distribution Width 15.8 % (11.5-14.5); Segmented Neutrophils % 77.3 %
[2018-07-26 05:01] LABS: Calcium 8.1 mg/dL (8.6-10.3); Magnesium 1.7 mg/dL (1.6-2.6); Potassium 4.7 mEq/L (3.5-5.1)
[2018-07-26] MEDS: 0.9 % Sodium Chloride w KCl 40 MEQ/1,000 ML MLS IVC SCH (05:52)
[2018-07-26] MEDS: Aspirin Enteric Coated 81 MG Tablet PO SCH (08:57)
[2018-07-26] MEDS: *HR* Promethazine 25 MG/ML VIAL IVP PRN ×2 (09:05→16:32)
--- NOTE | 2018-07-26 10:33 | Internal Med Progress Note ---
Hospitalist Progress Note - Encounter Date of Encounter: 07/26/18 Time of Encounter: 09:30 - Subjective Interval History: continues to improve, denies any more nausea or chills. Does not complain of any dysuria, flank pain, or suprapubic discomfort. - Exam Vitals: Temp Pulse Resp BP Pulse Ox 97.5 F L 76 16 118/74 92 07/26/18 10:08 07/26/18 10:08 07/26/18 10:08 07/26/18 10:08 07/26/18 10:08 Exam: General: Alert and oriented, not in distress Cardiovascular:Normal S1 & S2, No JVD. Pulse regular. Lungs: equal breath sounds bilaterally, no wheezes/rales Abdomen:Soft, non-tender, midline scar well-healed. No guarding/rebound/rigidity Extremities:No deformity or swelling Neurological:Normal cognition and motor skills. Non-focal - Assessment and Plan (1) Sepsis Current Visit: Yes Status: Acute Assessment and Plan: presented with non-specific symptoms of nausea and weakness then developed bandemia and tachycardia along with GNR bacteremia respiratory rate variable but as high as 24/min which would satisfy 3/4 SIRS criteria blood culture growing GNR, PCR +ve for enterobacter and E.coli -> pending final speciation and sensitivity was started on zosyn given her relatively recent GI surgery and suspicion for GI source of bactermia -> however, CT abdo/pelvis was unremarkable Urinalysis showed large amount of LE, no pyelonephritis on imaging clinically improving with downtrending WBC, will continue zosyn (D2-3) and de- escalate based on final blood culture sensitivity Follow with ID (2) Gram-negative bacteremia Current Visit: Yes Status: Acute Assessment and Plan: as above (3) CECILLE (acute kidney injury) Current Visit: Yes Status: Acute Assessment and Plan: Improving, likely ATN with sepsis slightly hyperchloremic today, will encourage oral intake and monitor off IVF (4) Elevated troponin I level Current Visit: Yes Status: Acute Assessment and Plan: absence of symptoms and no new EKG changes, previously was noted to be in the range of 0.04-0.06 trended upto as high as 0.68. EF shows preserved EF and no wall motion abnormalities patient is on xarelto for Afib. Loaded with ASA in the ED drop in Hb likely due to sepsis, low suspicion for bleeding, Hb stable at 8.8 today start ASA once FOBT is completed and -ve start bb and monitor BP appreciate cardiology's input (5) Anemia Current Visit: Yes Status: Acute Assessment and Plan: likely due to sepsis but will get FOBT to make sure hemodynamically stable, Hb stable at 8.8 monitor (6) Thrombocytopenia Current Visit: Yes Status: Acute Assessment and Plan: sepsis-related, no evidence of bleeding, slightly improved today continue xarelto unless FOBT is +ve (7) PAF (paroxysmal atrial fibrillation) Current Visit: Yes Status: Acute Assessment and Plan: currently in sinus rhythm xarelto for AC, she has not been taking diltiazem at home low dose bb started (8) Hypothyroidism Current Visit: No Status: Chronic Assessment and Plan: resume home meds (9) Physical deconditioning Current Visit: Yes Status: Acute Assessment and Plan: PT/OT pending sit out on a chair at least today (10) DVT prophylaxis Current Visit: No Status: Acute Assessment and Plan: on xarelto - Time Spent with Patient Total time spent is greater than 50% in coordination of care (as documented) at patient's floor/unit and/or counseling patient: Plan of Care Discussed with: nurse Internal Medicine: Result - Labs CBC & Chem 7: 07/26/18 04:29 07/26/18 04:29 Labs: Short CBC 07/26/18 Range/Units 04:29 WBC 14.1 H (4.3-11.1) K/mcL Hgb 8.8 L (11.5-15.4) g/dL Hct 27.7 L (35.3-44.9) % Plt Count 115 L (140-400) K/mcL Neutrophils # 10.9 H (1.6-8.9) K/mcL BMP 07/26/18 04:29 Sodium 133 L Potassium 4.7 Chloride 111 H Carbon Dioxide 17 L BUN 20 Creatinine 1.07 Glucose 90 Calcium 8.1 L - ABG Interpretation ABG results: PT/INR, D-dimer D-Dimer 890 ng/mLFEU (0-500) H 07/23/18 17:00 Consult Discharge Plan - Plan Referrals: Maxwell Ramos MD [Primary Care Provider] - (1) Sepsis Qualifiers: Sepsis type: sepsis due to unspecified organism Qualified Code(s): A41.9 - Sepsis, unspecified organism (5) Anemia Qualifiers: Anemia type: other cause Other causes of anemia: other cause, not classified Qualified Code(s): D64.89 - Other specified anemias (8) Hypothyroidism Qualifiers: Hypothyroidism type: unspecified Qualified Code(s): E03.9 - Hypothyroidism, unspecified
[2018-07-26] MEDS: *HR* Rivaroxaban 15 MG TABLET PO SCH (16:32)
[2018-07-26 19:40] LABS: Acinetobacter baumannii by PCR Not Detected (Not Detect); Enterobacter cloacae Cmplx PCR Not Detected (Not Detect); Enterobacteriaceae by PCR DETECTED (Not Detect); Enterococcus by PCR Not Detected (Not Detect); Escherichia coli by PCR DETECTED (Not Detect); Staphylococcus aureus by PCR Not Detected (Not Detect); Staphylococcus by PCR Not Detected (Not Detect); Streptococcus agalactiae(B)PCR Not Detected (Not Detect); Streptococcus by PCR Not Detected (Not Detect); Streptococcus pneumoniae PCR Not Detected (Not Detect); Streptococcus pyogenes (A) PCR Not Detected (Not Detect); blaKPC Carbapenem-Resist Gene Not Detected (Not Detect)
[2018-07-26 19:41] LABS: Candida albicans by PCR Not Detected (Not Detect); Candida glabrata by PCR Not Detected (Not Detect); Candida krusei by PCR Not Detected (Not Detect); Candida parapsilosis by PCR Not Detected (Not Detect); Candida tropicalis by PCR Not Detected (Not Detect); Klebsiella oxytoca by PCR Not Detected (Not Detect); Klebsiella pneumoniae by PCR Not Detected (Not Detect); Proteus by PCR Not Detected (Not Detect); Pseudomonas aeruginosa by PCR Not Detected (Not Detect); Serratia marcescens by PCR Not Detected (Not Detect)
[2018-07-27] MEDS: Piperacillin/Tazobactam 3.375 GM in 0.9 % Sodium Chloride Mini Bag 100 ML IVPB SCH (00:08)
[2018-07-27 01:43] LABS: Basophils % 0.1 %; Eosinophils # 0.1 K/mcL (0.0-0.6); Eosinophils % 0.9 %; Hematocrit 26.6 % (35.3-44.9); Hemoglobin 8.5 g/dL (11.5-15.4); Immature Granulocytes % 4.6 % (0-4); Lymphocytes # 2.2 K/mcL (0.6-4.6); Lymphocytes % 20.7 %; Mean Corpuscular Hemoglobin 29.2 pg (28.0-33.3); Mean Corpuscular Volume 91.4 fL (83.0-100.0); Mean Platelet Volume 9.7 fL (9.4-12.4); Monocytes # 0.6 K/mcL (0.0-1.3); Monocytes % 5.7 %; Neutrophils # 7.2 K/mcL (1.6-8.9); Platelet Count 116 K/mcL (140-400); Red Blood Count 2.91 M/mcL (3.82-4.97); Red Cell Distribution Width 15.7 % (11.5-14.5)
[2018-07-27 02:04] LABS: Calcium 8.2 mg/dL (8.6-10.3); Magnesium 1.7 mg/dL (1.6-2.6); Potassium 4.1 mEq/L (3.5-5.1)
[2018-07-27] MEDS: Aspirin Enteric Coated 81 MG Tablet PO SCH (09:34)
[2018-07-27] MEDS: Ertapenem 1,000 MG in 0.9 % Sodium Chloride Mini Bag 100 ML IVPB SCH (09:34)
--- NOTE | 2018-07-27 12:44 | Internal Med Progress Note ---
Hospitalist Progress Note - Encounter Date of Encounter: 07/27/18 Time of Encounter: 10:50 - Subjective Interval History: continues to improve, denies nausea/vomiting, abdominal pain, flank pain, dysuria, or chills. Feels better than yesterday. - Exam Vitals: Temp Pulse Resp BP Pulse Ox 97.8 F 66 16 157/80 97 07/27/18 11:36 07/27/18 11:36 07/27/18 11:36 07/27/18 11:36 07/27/18 11:36 Exam: General: Alert and oriented, not in distress Cardiovascular:Normal S1 & S2, No JVD. Pulse regular. Lungs: equal breath sounds bilaterally, no wheezes/rales Abdomen:Soft, non-tender, midline scar well-healed. No guarding/rebound/rigidity Extremities:No deformity or swelling Neurological:Normal cognition and motor skills. Non-focal - Assessment and Plan (1) Sepsis Current Visit: Yes Status: Acute Assessment and Plan: presented with non-specific symptoms of nausea and weakness then developed bandemia and tachycardia along with GNR bacteremia respiratory rate variable but as high as 24/min which would satisfy 3/4 SIRS criteria Urinalysis showed large amount of LE, no pyelonephritis on imaging was started on zosyn given her relatively recent GI surgery and suspicion for GI source of bactermia -> however, CT abdo/pelvis was unremarkable blood culture 07/23 and 07/26 growing MDRO E. coli, intermediate sensitivity to zosyn, sen to ertapenem She had been on zosyn for the last 2-3 days, now with WBC downtrending switch abx to ertapenem, plan for 14 day course Follow with ID (2) Gram-negative bacteremia Current Visit: Yes Status: Acute Assessment and Plan: as above (3) CECILLE (acute kidney injury) Current Visit: Yes Status: Acute Assessment and Plan: stable, likely ATN with sepsis encourage oral intake and monitor off IVF (4) Elevated troponin I level Current Visit: Yes Status: Acute Assessment and Plan: absence of symptoms and no new EKG changes, previously was noted to be in the range of 0.04-0.06 trended upto as high as 0.68. EF shows preserved EF and no wall motion abnormalities patient is on xarelto for Afib. Loaded with ASA in the ED drop in Hb likely due to sepsis, low suspicion for bleeding, Hb stable at 8.5 today start ASA once FOBT is completed and -ve BP stable on bb, continue (5) Anemia Current Visit: Yes Status: Acute Assessment and Plan: likely due to sepsis but will get FOBT to make sure hemodynamically stable, Hb stable at 8.5 monitor (6) Thrombocytopenia Current Visit: Yes Status: Acute Assessment and Plan: sepsis-related, no evidence of bleeding, stable at 116 continue xarelto unless FOBT is +ve (7) PAF (paroxysmal atrial fibrillation) Current Visit: Yes Status: Acute Assessment and Plan: currently in sinus rhythm xarelto for AC, she has not been taking diltiazem at home low dose bb started (8) Hypothyroidism Current Visit: No Status: Chronic Assessment and Plan: resume home meds (9) Physical deconditioning Current Visit: Yes Status: Acute Assessment and Plan: PT/OT pending sit out on a chair at least today (10) DVT prophylaxis Current Visit: No Status: Acute Assessment and Plan: on xarelto - Time Spent with Patient Total time spent is greater than 50% in coordination of care (as documented) at patient's floor/unit and/or counseling patient: Greater than 35 minutes Plan of Care Discussed with: nurse (also discussed with pharmacy) Internal Medicine: Result - Labs CBC & Chem 7: 07/27/18 01:32 07/27/18 01:32 Labs: Short CBC 07/27/18 Range/Units 01:32 WBC 10.6 (4.3-11.1) K/mcL Hgb 8.5 L (11.5-15.4) g/dL Hct 26.6 L (35.3-44.9) % Plt Count 116 L (140-400) K/mcL Neutrophils # 7.2 (1.6-8.9) K/mcL BMP 07/27/18 01:32 Sodium 134 L Potassium 4.1 Chloride 110 H Carbon Dioxide 18 L BUN 15 Creatinine 1.13 Glucose 98 Calcium 8.2 L - ABG Interpretation ABG results: PT/INR, D-dimer D-Dimer 890 ng/mLFEU (0-500) H 07/23/18 17:00 Consult Discharge Plan - Plan Referrals: Maxwell Ramos MD [Primary Care Provider] - (1) Sepsis Qualifiers: Sepsis type: sepsis due to unspecified organism Qualified Code(s): A41.9 - Sepsis, unspecified organism (5) Anemia Qualifiers: Anemia type: other cause Other causes of anemia: other cause, not classified Qualified Code(s): D64.89 - Other specified anemias (8) Hypothyroidism Qualifiers: Hypothyroidism type: unspecified Qualified Code(s): E03.9 - Hypothyroidism, unspecified
--- NOTE | 2018-07-27 16:35 | Infectious Disease Progress No ---
Date of Encounter: 07/27/18 Time of Encounter: 11:00 - Assessment and Plan (1) Sepsis Current Visit: Yes Status: Acute The patient had two SIRS criteria on admission. Likely secondary to bacteremia. Improved. WBC normal. No documented fevers, but the patient has been noted to have chills and rigors while here in the hospital. Intermittent tachycardia resolved. Blood cultures drawn 07/23/18 are positive 2/2 sets for E. coli per PCR. Blood cultures drawn 07/26/18 are also positive for 2/2 sets for E.coli. Urine culture 07/24/18 is positive for E.coli. Qualifiers: Sepsis type: sepsis due to unspecified organism Qualified Code(s): A41.9 - Sepsis, unspecified organism (2) Gram-negative bacteremia Current Visit: Yes Status: Acute Causative organism: E. coli per PCR. Source: Urinary. Urine culture 07/24/18 positive for E.coli, sensitive to ertapenem. CT abdomen and pelvis negative for intra-abdominal source. Blood cultures drawn 07/23/18 are positive 2/2 sets for E. coli per PCR, sensitive to ertapenem. Blood culture drawn 07/24/18 are positive 2/2 sets for E.coli. Repeat blood cultures x 2 sets in the AM. Continue Ertapenem. Creatinine clearance calculated at 33. Renal dosing not needed. Duration of treatment depends on the clinical picture. Monitor renal function and for drug toxicity and dose-adjust antibiotics. (3) Shortness of breath Current Visit: Yes Status: Resolved Etiology unclear. Resolved. CT of the chest was negative for pneumonia or pleural effusion. Supportive care per the primary team. (4) Nausea and vomiting Current Visit: No Status: Resolved Persistent nausea and poor appetite since her surgery in May. Resolved. Qualifiers: Vomiting type: unspecified Vomiting Intractability: intractable Qualified Code(s): R11.2 - Nausea with vomiting, unspecified (5) Hyponatremia Current Visit: No Status: Acute Likely secondary to poor PO intake since her surgery. Improved. Sodium level today is 134. Management per the primary team. (6) Elevated troponin Current Visit: No Status: Acute Troponin elavated in the setting of sepsis, bacteremia, mild CECILLE, anemia. Patient denies chest pain. ECG with no acute ischemic changes noted. TTE 05/2018 with LVEF 60%, mild diastolic dysfunction, no segmental wall motion abnormalities noted. Repeat TTE with LVEF preserved, no segmental wall motion abnormalities noted. Management per Cardiology team. (7) Atrial fibrillation with controlled ventricular rate Current Visit: No Status: Acute (8) Hypertension Current Visit: No Status: Chronic Qualifiers: Hypertension type: essential hypertension Qualified Code(s): I10 - Essential (primary) hypertension (9) Hypothyroidism Current Visit: No Status: Chronic Qualifiers: Hypothyroidism type: unspecified Qualified Code(s): E03.9 - Hypothyroidism , unspecified - Subjective Interval history: Patient seen and examined. No acute events noted overnight. Patient states she feels "better." Patient denies pain at this time. Denies fevers, chills, or rigors. Denies chest pain, shortness of breath. Denies cough. Denies nausea, vomiting, or diarrhea. Denies abdominal pain, dysuria, or appetite changes. Denies oral thrush or new skin lesions. Infect Dis PN-Objective Data - Labs CBC & Chem 7: 07/28/18 04:36 07/28/18 04:36 Labs: Laboratory Results - last 24 hr 07/26/18 07/27/18 07/27/18 04:29 01:32 01:32 WBC 10.6 RBC 2.91 L Hgb 8.5 L Hct 26.6 L MCV 91.4 MCH 29.2 MCHC 32.0 RDW 15.7 H Plt Count 116 L MPV 9.7 Immature Gran % 4.6 H Seg Neutrophils % 68.0 Lymphocytes % 20.7 Monocytes % 5.7 Eosinophils % 0.9 Basophils % 0.1 Neutrophils # 7.2 Lymphocytes # 2.2 Monocytes # 0.6 Eosinophils # 0.1 Basophils # 0.0 Sodium 134 L Potassium 4.1 Chloride 110 H Carbon Dioxide 18 L BUN 15 Creatinine 1.13 Est GFR ( Amer) 56 L Est GFR (Non-Af Amer) 46 L BUN/Creatinine Ratio 13 Glucose 98 Calculated Osmolality 279 L Calcium 8.2 L Magnesium 1.7 A. baumannii (PCR) Not Detected Linda albicans (PCR) Not Detected C. glabrata (PCR) Not Detected C. krusei (PCR) Not Detected C. parapsilosis (PCR) Not Detected C. tropicalis (PCR) Not Detected Enterobacteriac sp PCR DETECTED A E. cloacae complex PCR Not Detected Enterococcus sp PCR Not Detected E. coli (PCR) DETECTED A H. influenzae (PCR) Not Detected Klebsiella oxytoca PCR Not Detected Klebsiella pneumoniae Not Detected List. monocytogenes PCR Not Detected N. meningitidis (PCR) Not Detected Proteus species (PCR) Not Detected Serratia marcescens PCR Not Detected Staphylococcus sp PCR Not Detected Staph aureus (PCR) Not Detected Streptococcus sp PCR Not Detected Group A Strep DNA Not Detected Group B Strep (PCR) Not Detected Strep pneumoniae (PCR) Not Detected P. aeruginosa (PCR) Not Detected KPC (blaKPC) Detect PCR Not Detected Cultures: Cultures 07/26/18 04:29 Blood Culture - Final Peripheral Venipuncture Escherichia coli MDRO 07/26/18 04:29 Blood Culture - Final Peripheral Venipuncture Escherichia coli MDRO 07/24/18 17:45 Urine Culture - Final Urine,Clean Catch Escherichia coli MDRO 07/27/18 01:32 Blood Culture - Preliminary Peripheral Venipuncture Culture is incubating and being continuously monitored for growth. Final report to follow. 07/27/18 01:32 Blood Culture - Preliminary Peripheral Venipuncture Culture is incubating and being continuously monitored for growth. Final report to follow. Serology 07/26/18 07/24/18 Range/Units 04:29 17:45 Urine Color Yellow (Yellow) Urine Clarity Turbid A (Clear) Urine pH 6.0 (5.0-8.0) pH Units Ur Specific [place] > 1.030 H (1.010-1.025) Urine Protein 100 H (Neg-Trace) mg/dL Urine Glucose (UA) Normal (Normal) mg/dL Urine Ketones Trace H (Negative) mg/dL Urine Blood Moderate H (Negative) Urine Nitrite Negative (Negative) Urine Bilirubin Negative (Negative) Urine Urobilinogen Normal (Normal) mg/dL Ur Leukocyte Esterase Large H (Negative) Urine Microscopic RBC 5-15 H (0-3) per hpf Urine Microscopic WBC TNTC H (0-3) per hpf Ur Squamous Epith Cells Many H (None-Few) per lpf Urine Bacteria Moderate H (None-Few) per hpf Hyaline Casts None Seen (None-Few) per lpf Ur Culture Indicated? NO. A (NO) A. baumannii (PCR) Not Detected (Not Detect) Linda albicans (PCR) Not Detected (Not Detect) C. glabrata (PCR) Not Detected (Not Detect) C. krusei (PCR) Not Detected (Not Detect) C. parapsilosis (PCR) Not Detected (Not Detect) C. tropicalis (PCR) Not Detected (Not Detect) Enterobacteriac sp PCR DETECTED A (Not Detect) E. cloacae complex PCR Not Detected (Not Detect) Enterococcus sp PCR Not Detected (Not Detect) E. coli (PCR) DETECTED A (Not Detect) H. influenzae (PCR) Not Detected (Not Detect) Klebsiella oxytoca PCR Not Detected (Not Detect) Klebsiella pneumoniae Not Detected (Not Detect) List. monocytogenes PCR Not Detected (Not Detect) N. meningitidis (PCR) Not Detected (Not Detect) Proteus species (PCR) Not Detected (Not Detect) Serratia marcescens PCR Not Detected (Not Detect) Staphylococcus sp PCR Not Detected (Not Detect) Staph aureus (PCR) Not Detected (Not Detect) Streptococcus sp PCR Not Detected (Not Detect) Group A Strep DNA Not Detected (Not Detect) Group B Strep (PCR) Not Detected (Not Detect) Strep pneumoniae (PCR) Not Detected (Not Detect) P. aeruginosa (PCR) Not Detected (Not Detect) KPC (blaKPC) Detect PCR Not Detected (Not Detect) Exam - Constitutional Vitals: Temp Pulse Resp BP Pulse Ox 99.3 F 70 18 151/71 98 07/27/18 15:50 07/27/18 15:50 07/27/18 15:50 07/27/18 15:50 07/27/18 15:50 General appearance: average body habitus, cooperative, no acute distress - Head Head exam: Present: atraumatic, normal inspection, normocephalic - Eye Eye exam: Present: EOMI, normal appearance, PERRL Pupils: Present: normal accommodation - ENT ENT exam: Present: mucous membranes moist - Neck Neck exam: Present: normal inspection - Respiratory Respiratory exam: Present: CTAB. Absent: rales, respiratory distress, rhonchi, wheezes - Cardiovascular Cardiovascular exam: Present: RRR, +S1, +S2 - GI/Abdominal GI/Abdominal exam: Present: normal bowel sounds, soft. Absent: distended, tenderness - Extremities Exam Extremities exam: Present: pedal edema (2+ pitting edema at ankles bilaterally ) . Absent: joint swelling, tenderness - Neurological Exam Neurological exam: Present: alert, oriented X3, no focal deficits - Psychiatric Psychiatric exam: Present: normal affect, normal mood - Skin Skin exam: Present: dry, intact, normal color, warm Consult Discharge Plan - Plan Referrals: Maxwell Ramos MD [Primary Care Provider] - - Attending Attestation I examined this patient and my medical decision-making was reviewed with the Resident Physician. I agree with the documented findings, disposition and treatment plan as described except to the extent set forth below.
--- NOTE | 2018-07-27 17:27 | Electrocardiograph Report ---
[address] [address] Test Date: 2018-07-24 Pat Name: Sis Wolf Department: 112 Room: 2A Gender: F [employer]: : 1940 Requested By: Jaspal Reina Order Number: [id number] Reading MD: Charlie Mahoney Measurements Intervals [place] Rate: 85 P: 26 MN: 170 QRS: -10 QRSD: 93 T: 13 QT: 373 QTc: 415 Interpretive Statements SINUS RHYTHM LOW QRS VOLTAGE IN PRECORDIAL LEADS Electronically Signed On 07-27-2018 17:26:02 EDT by Charlie Mahoney
[2018-07-27] MEDS: *HR* Rivaroxaban 15 MG TABLET PO SCH (17:29)
[2018-07-28 05:10] LABS: Hematocrit 25.7 % (35.3-44.9); Hemoglobin 8.3 g/dL (11.5-15.4); Mean Corpuscular HGB Conc 32.3 g/dL (31.6-35.5); Mean Corpuscular Hemoglobin 28.3 pg (28.0-33.3); Mean Corpuscular Volume 87.7 fL (83.0-100.0); Platelet Count 151 K/mcL (140-400); Red Blood Count 2.93 M/mcL (3.82-4.97); Red Cell Distribution Width 15.8 % (11.5-14.5)
[2018-07-28 05:32] LABS: BUN/Creatinine Ratio 10 (6-26); Blood Urea Nitrogen 10 mg/dL (8-23); Calcium 8.2 mg/dL (8.6-10.3); Carbon Dioxide 18 mEq/L (23-29); Chloride 109 mEq/L (98-107); Glucose 79 mg/dL (70-105); Osmolality,Calculated 278 (280-300); Potassium 3.8 mEq/L (3.5-5.1); Sodium 135 mEq/L (136-145); eGFR For Non-African Americans 53 (> 60)
[2018-07-28 06:33] LABS: Lymphocytes # 2.6 K/mcL (0.6-4.6); Monocytes # 0.6 K/mcL (0.0-1.3); Platelet Estimate Normal (Normal)
[2018-07-28] MEDS: Aspirin Enteric Coated 81 MG Tablet PO SCH (09:56)
[2018-07-28] MEDS: Ertapenem 1,000 MG in 0.9 % Sodium Chloride Mini Bag 100 ML IVPB SCH (09:56)
--- NOTE | 2018-07-28 10:59 | Infectious Disease Progress No ---
Date of Encounter: 07/28/18 Time of Encounter: 09:05 - Assessment and Plan (1) Sepsis Status: Acute The patient had two SIRS criteria on admission. Likely secondary to bacteremia. Improved. WBC normal. No documented fevers, but the patient has been noted to have chills and rigors while here in the hospital. Chills resolved. Intermittent tachycardia resolved. Blood cultures drawn 07/23/18 are positive 2/2 sets for E. coli per PCR, sensitive to ertapenem and trimethoprim/sulfamethoxazole. Blood cultures drawn are also positive for 2/2 sets for E.coli. Urine culture 07/24/18 is positive for E.coli, sensitive to ertapenem and trimethoprim/sulfamethoxazole. Qualifiers: Sepsis type: sepsis due to unspecified organism Qualified Code(s): A41.9 - Sepsis, unspecified organism (2) Gram-negative bacteremia Status: Acute Causative organism: E. coli per PCR. Source: Urinary. Urine culture 07/24/18 positive for E.coli, sensitive to ertapenem and trimethoprim/sulfamethoxazole. CT abdomen and pelvis negative for intra-abdominal source. Blood cultures drawn 07/23/18 are positive 2/2 sets for E. coli per PCR, sensitive to ertapenem and trimethoprim/sulfamethoxazole. Blood culture drawn are positive 2/2 sets for E.coli. Blood cultures drawn 07/27/18 and 07/28/18 are NGTD. Continue Ertapenem. Creatinine clearance calculated at >30. Renal dosing not needed. Duration of treatment depends on the clinical picture. Monitor renal function and for drug toxicity and dose-adjust antibiotics. (3) Shortness of breath Status: Resolved Etiology unclear. Resolved. CT of the chest was negative for pneumonia or pleural effusion. Supportive care per the primary team. (4) Hyponatremia Status: Acute Likely secondary to poor PO intake since her surgery. Improved. Sodium level today is 135. Management per the primary team. (5) Elevated troponin Status: Acute Troponin elevated in the setting of sepsis, bacteremia, mild CECILLE, anemia. Patient denies chest pain. ECG with no acute ischemic changes noted. TTE 05/2018 with LVEF 60%, mild diastolic dysfunction, no segmental wall motion abnormalities noted. Repeat TTE with LVEF preserved, no segmental wall motion abnormalities noted. Management per Cardiology team. (6) Atrial fibrillation with controlled ventricular rate Status: Acute (7) Hypertension Status: Chronic Qualifiers: Hypertension type: essential hypertension Qualified Code(s): I10 - Essential (primary) hypertension (8) Hypothyroidism Status: Chronic Qualifiers: Hypothyroidism type: unspecified Qualified Code(s): E03.9 - Hypothyroidism , unspecified - Subjective Interval history: Patient seen and examined. No acute events noted overnight. Patient states she feels "pretty good." Patient denies pain at this time. Denies fevers, chills, or rigors. Denies chest pain, shortness of breath. Denies cough. Denies nausea, vomiting, or diarrhea. Denies abdominal pain or appetite changes. Denies oral thrush or new skin lesions. Denies urinary frequency or dysuria. Infect Dis PN-Objective Data - Labs CBC & Chem 7: 07/29/18 03:00 07/29/18 03:00 Labs: Laboratory Results - last 24 hr 07/28/18 07/28/18 04:36 04:36 WBC 9.1 RBC 2.93 L Hgb 8.3 L Hct 25.7 L MCV 87.7 MCH 28.3 MCHC 32.3 RDW 15.8 H Plt Count 151 MPV 10.0 Seg Neutrophils % 66.0 Lymphocytes % 28.0 Monocytes % 6.0 Neutrophils # 6.0 Lymphocytes # 2.6 Monocytes # 0.6 Platelet Estimate Normal Sodium 135 L Potassium 3.8 Chloride 109 H Carbon Dioxide 18 L BUN 10 Creatinine 1.01 Est GFR ( Amer) > 60 Est GFR (Non-Af Amer) 53 L BUN/Creatinine Ratio 10 Glucose 79 Calculated Osmolality 278 L Calcium 8.2 L Cultures: Cultures 07/28/18 04:36 Blood Culture - Preliminary Peripheral Venipuncture Culture is incubating and being continuously monitored for growth. Final report to follow. 07/28/18 04:34 Blood Culture - Preliminary Peripheral Venipuncture Culture is incubating and being continuously monitored for growth. Final report to follow. 07/26/18 04:29 Blood Culture - Final Peripheral Venipuncture Escherichia coli MDRO 07/26/18 04:29 Blood Culture - Final Peripheral Venipuncture Escherichia coli MDRO 07/24/18 17:45 Urine Culture - Final Urine,Clean Catch Escherichia coli MDRO 07/27/18 01:32 Blood Culture - Preliminary Peripheral Venipuncture Culture is incubating and being continuously monitored for growth. Final report to follow. 07/27/18 01:32 Blood Culture - Preliminary Peripheral Venipuncture Culture is incubating and being continuously monitored for growth. Final report to follow. Serology 07/26/18 07/24/18 Range/Units 04:29 17:45 Urine Color Yellow (Yellow) Urine Clarity Turbid A (Clear) Urine pH 6.0 (5.0-8.0) pH Units Ur Specific [place] > 1.030 H (1.010-1.025) Urine Protein 100 H (Neg-Trace) mg/dL Urine Glucose (UA) Normal (Normal) mg/dL Urine Ketones Trace H (Negative) mg/dL Urine Blood Moderate H (Negative) Urine Nitrite Negative (Negative) Urine Bilirubin Negative (Negative) Urine Urobilinogen Normal (Normal) mg/dL Ur Leukocyte Esterase Large H (Negative) Urine Microscopic RBC 5-15 H (0-3) per hpf Urine Microscopic WBC TNTC H (0-3) per hpf Ur Squamous Epith Cells Many H (None-Few) per lpf Urine Bacteria Moderate H (None-Few) per hpf Hyaline Casts None Seen (None-Few) per lpf Ur Culture Indicated? NO. A (NO) A. baumannii (PCR) Not Detected (Not Detect) Linda albicans (PCR) Not Detected (Not Detect) C. glabrata (PCR) Not Detected (Not Detect) C. krusei (PCR) Not Detected (Not Detect) C. parapsilosis (PCR) Not Detected (Not Detect) C. tropicalis (PCR) Not Detected (Not Detect) Enterobacteriac sp PCR DETECTED A (Not Detect) E. cloacae complex PCR Not Detected (Not Detect) Enterococcus sp PCR Not Detected (Not Detect) E. coli (PCR) DETECTED A (Not Detect) H. influenzae (PCR) Not Detected (Not Detect) Klebsiella oxytoca PCR Not Detected (Not Detect) Klebsiella pneumoniae Not Detected (Not Detect) List. monocytogenes PCR Not Detected (Not Detect) N. meningitidis (PCR) Not Detected (Not Detect) Proteus species (PCR) Not Detected (Not Detect) Serratia marcescens PCR Not Detected (Not Detect) Staphylococcus sp PCR Not Detected (Not Detect) Staph aureus (PCR) Not Detected (Not Detect) Streptococcus sp PCR Not Detected (Not Detect) Group A Strep DNA Not Detected (Not Detect) Group B Strep (PCR) Not Detected (Not Detect) Strep pneumoniae (PCR) Not Detected (Not Detect) P. aeruginosa (PCR) Not Detected (Not Detect) KPC (blaKPC) Detect PCR Not Detected (Not Detect) Exam - Constitutional Vitals: Temp Pulse Resp BP Pulse Ox 97.3 F L 67 18 155/80 97 07/28/18 08:14 07/28/18 08:14 07/28/18 08:14 07/28/18 08:14 07/28/18 08:14 General appearance: cooperative, no acute distress, obese - Head Head exam: Present: atraumatic, normal inspection, normocephalic - Eye Eye exam: Present: EOMI, normal appearance, PERRL Pupils: Present: normal accommodation - ENT ENT exam: Present: mucous membranes moist - Neck Neck exam: Present: normal inspection - Respiratory Respiratory exam: Present: CTAB. Absent: rales, respiratory distress, rhonchi, wheezes - Cardiovascular Cardiovascular exam: Present: RRR, +S1, +S2 - GI/Abdominal GI/Abdominal exam: Present: normal bowel sounds, soft. Absent: distended, tenderness - Extremities Exam Extremities exam: Present: normal inspection, pedal edema (1+ pitting edema at ankles bilaterally ). Absent: joint swelling, tenderness - Neurological Exam Neurological exam: Present: alert, oriented X3, no focal deficits - Psychiatric Psychiatric exam: Present: normal affect, normal mood - Skin Skin exam: Present: dry, intact, normal color, warm Consult Discharge Plan - Plan Instructions: Atrial Fibrillation (DC), Sepsis (DC), Anemia (GEN) Additional Instructions: Follow up with cardiology for outpatient ischemic workup Follow with surgery for persistent nausea post-op Referrals: Maxwell Ramos MD [Primary Care Provider] - (patient will have to call for an appt) Yamilet Kiser DO [Partnered Physician] - (office will call for an appt.) Prescriptions: Aspirin Enteric Coated [Aspirin EC] 81 mg PO DAILY #30 tablet. Metoprolol [Lopressor] 12.5 mg PO BID #60 tablet Sulfamethoxazole/Trimeth DS [Bactrim DS] 1 each PO BID 11 Days #22 tablet - Attending Attestation I examined this patient and my medical decision-making was reviewed with the Resident Physician. I agree with the documented findings, disposition and treatment plan as described except to the extent set forth below.
--- NOTE | 2018-07-28 14:04 | Internal Med Progress Note ---
Hospitalist Progress Note - Encounter Date of Encounter: 07/28/18 Time of Encounter: 12:50 - Subjective Interval History: continues to improve, denies nausea/vomiting, abdominal pain, flank pain, dysuria, or chills. Feels much better than yesterday. - Exam Vitals: Temp Pulse Resp BP Pulse Ox 97.5 F L 63 19 153/83 96 07/28/18 11:50 07/28/18 11:50 07/28/18 11:50 07/28/18 11:50 07/28/18 11:50 Exam: General: Alert and oriented, not in distress Cardiovascular:Normal S1 & S2, No JVD. Pulse regular. Lungs: equal breath sounds bilaterally, no wheezes/rales Abdomen:Soft, non-tender, midline scar well-healed. No guarding/rebound/rigidity Extremities:No deformity or swelling Neurological:Normal cognition and motor skills. Non-focal - Assessment and Plan (1) Sepsis Current Visit: Yes Status: Acute Assessment and Plan: presented with non-specific symptoms of nausea and weakness then developed bandemia and tachycardia along with GNR bacteremia respiratory rate variable but as high as 24/min which would satisfy 3/4 SIRS criteria Urinalysis showed large amount of LE, no pyelonephritis on imaging was started on zosyn given her relatively recent GI surgery and suspicion for GI source of bactermia -> however, CT abdo/pelvis was unremarkable blood culture 07/23 and 07/26 growing MDRO E. coli, intermediate sensitivity to zosyn, sen to ertapenem and bactrim abx switched to ertapenem yesterday, D2 discussed with ID, if her blood culture from 07/27 is negative after 48 hours, we may be able to discharge her on PO bactrim for a total of 10 day course Follow with ID (2) Gram-negative bacteremia Current Visit: Yes Status: Acute Assessment and Plan: as above (3) CECILLE (acute kidney injury) Current Visit: Yes Status: Acute Assessment and Plan: stable, likely ATN with sepsis Improving, encourage oral intake and monitor off IVF Avoid nephrotoxins and renally adjusted antibiotics. (4) Elevated troponin I level Current Visit: Yes Status: Acute Assessment and Plan: absence of symptoms and no new EKG changes, previously was noted to be in the range of 0.04-0.06 trended upto as high as 0.68. EF shows preserved EF and no wall motion abnormalities patient is on xarelto for Afib. Loaded with ASA in the ED drop in Hb likely due to sepsis, low suspicion for bleeding, Hb stable x last 4 days start ASA BP stable on bb, continue (5) Anemia Current Visit: Yes Status: Acute Assessment and Plan: likely due to sepsis, Hb stable for 4 days hemodynamically stable monitor (6) Thrombocytopenia Current Visit: Yes Status: Acute Assessment and Plan: sepsis-related, no evidence of bleeding, improving and now low normal continue xarelto for afib (7) PAF (paroxysmal atrial fibrillation) Current Visit: Yes Status: Acute Assessment and Plan: currently in sinus rhythm xarelto for AC, she has not been taking diltiazem at home low dose bb started (8) Hypothyroidism Current Visit: No Status: Chronic Assessment and Plan: resume home meds (9) Physical deconditioning Current Visit: Yes Status: Acute Assessment and Plan: PT/OT recommended HHPT (10) DVT prophylaxis Current Visit: No Status: Acute Assessment and Plan: on xarelto - Time Spent with Patient Total time spent is greater than 50% in coordination of care (as documented) at patient's floor/unit and/or counseling patient: Plan of Care Discussed with: absence management consultant (with ID) Internal Medicine: Result - Labs CBC & Chem 7: 07/28/18 04:36 07/28/18 04:36 Labs: Short CBC 07/28/18 Range/Units 04:36 WBC 9.1 (4.3-11.1) K/mcL Hgb 8.3 L (11.5-15.4) g/dL Hct 25.7 L (35.3-44.9) % Plt Count 151 (140-400) K/mcL Neutrophils # 6.0 (1.6-8.9) K/mcL BMP 07/28/18 04:36 Sodium 135 L Potassium 3.8 Chloride 109 H Carbon Dioxide 18 L BUN 10 Creatinine 1.01 Glucose 79 Calcium 8.2 L - ABG Interpretation ABG results: PT/INR, D-dimer D-Dimer 890 ng/mLFEU (0-500) H 07/23/18 17:00 Consult Discharge Plan - Plan Referrals: Maxwell Ramos MD [Primary Care Provider] - (1) Sepsis Qualifiers: Sepsis type: sepsis due to unspecified organism Qualified Code(s): A41.9 - Sepsis, unspecified organism (5) Anemia Qualifiers: Anemia type: other cause Other causes of anemia: other cause, not classified Qualified Code(s): D64.89 - Other specified anemias (8) Hypothyroidism Qualifiers: Hypothyroidism type: unspecified Qualified Code(s): E03.9 - Hypothyroidism, unspecified
[2018-07-28] MEDS: *HR* Rivaroxaban 15 MG TABLET PO SCH (18:02)
[2018-07-28] MEDS: Piperacillin/Tazobactam 3.375 GM in 0.9 % Sodium Chloride Mini Bag 100 ML IVPB SCH (19:55)
[2018-07-29 03:13] LABS: Hematocrit 27.3 % (35.3-44.9); Hemoglobin 8.7 g/dL (11.5-15.4); Mean Corpuscular HGB Conc 31.9 g/dL (31.6-35.5); Mean Corpuscular Hemoglobin 28.2 pg (28.0-33.3); Mean Corpuscular Volume 88.6 fL (83.0-100.0); Mean Platelet Volume 9.8 fL (9.4-12.4); Platelet Count 162 K/mcL (140-400); Red Blood Count 3.08 M/mcL (3.82-4.97); Red Cell Distribution Width 15.8 % (11.5-14.5)
[2018-07-29 04:05] LABS: Monocytes # 0.4 K/mcL (0.0-1.3); Neutrophils # 5.2 K/mcL (1.6-8.9)
[2018-07-29 04:06] LABS: Platelet Estimate Normal (Normal); Polychromasia 1+ (Not Present)
[2018-07-29 05:02] LABS: BUN/Creatinine Ratio 10 (6-26); Blood Urea Nitrogen 9 mg/dL (8-23); Calcium 8.1 mg/dL (8.6-10.3); Carbon Dioxide 20 mEq/L (23-29); Chloride 109 mEq/L (98-107); Glucose 84 mg/dL (70-105); Osmolality,Calculated 280 (280-300); Potassium 3.4 mEq/L (3.5-5.1); Sodium 136 mEq/L (136-145); eGFR For Non-African Americans 58 (> 60)
[2018-07-29] MEDS ORDERED: Potassium Chloride Elixir 20 MEQ/15 ML UDC PO ONE (07:26)
[2018-07-29] MEDS: Aspirin Enteric Coated 81 MG Tablet PO SCH (08:30)
[2018-07-29] MEDS: Ertapenem 1,000 MG in 0.9 % Sodium Chloride Mini Bag 100 ML IVPB SCH (08:30)
[2018-07-29] MEDS ORDERED: Aspirin Enteric Coated 81 MG Tablet PO SCH (09:00)
[2018-07-29 12:10] VITALS: BP 172/93
--- NOTE | 2018-07-29 13:02 | Discharge Summary ---
- NOTES TO OUTPATIENT PROVIDER Notes to Outpatient Provider: She was admitted for sepsis secondary to MDRD Escherichia coli bacteremia from UTI, no evidence of pyelonephritis. She was treated with IV ertapenem for 3 days which is transitioned to oral Bactrim to complete 14 day course, comanaged with infectious disease. CECILLE improved with IV fluid. She also had troponin elevation that peaked at 0.68, in the absence of anginal symptoms or EKG changes. Echocardiogram showed intact EF without wall motion abnormalities. Cardiology is consulted and she was started on ASA, BB and I advised the patient to follow up with them for outpatient ischemic workup. Also her lisinopril/HCTZ was d/anna due to her fluctuating Cr and instead was started on metoprolol which would be helpful for her paroxysmal afib. Since she is going home on bactrim, her BMP will need to be monitored in 5 days. Orders not resulted at time of discharge: Pending orders 07/25/18 10:50 Occult Blood,Stool [BF] Routine 07/27/18 01:32 Culture,Blood [BC] Stat 07/28/18 04:36 Culture,Blood [BC] AM 0400 Date of Encounter: 07/29/18 Time of Encounter: 08:30 - Discharge Diagnosis (1) Sepsis Priority: Primary Status: Acute Qualifiers: Sepsis type: sepsis due to unspecified organism Qualified Code(s): A41.9 - Sepsis, unspecified organism (2) Gram-negative bacteremia Priority: Secondary Status: Acute (3) CECILLE (acute kidney injury) Priority: Secondary Status: Acute (4) Elevated troponin I level Priority: Secondary Status: Acute (5) Anemia Priority: Secondary Status: Acute Qualifiers: Anemia type: other cause Other causes of anemia: other cause, not classified Qualified Code(s): D64.89 - Other specified anemias (6) Thrombocytopenia Priority: Secondary Status: Acute (7) PAF (paroxysmal atrial fibrillation) Priority: Secondary Status: Acute (8) Hypothyroidism Priority: Secondary Status: Chronic Qualifiers: Hypothyroidism type: unspecified Qualified Code(s): E03.9 - Hypothyroidism , unspecified (9) Physical deconditioning Priority: Secondary Status: Acute (10) DVT prophylaxis Priority: Secondary Status: Acute Hospital course: Ms. Wolf is a 78 year old female with HTN, HLD,pAF, was admitted for sepsis secondary to MDRD Escherichia coli bacteremia from UTI, no evidence of pyelonephritis. She was treated with IV ertapenem for 3 days which is transitioned to oral Bactrim to complete 14 day course, comanaged with infectious disease. CECILLE improved with IV fluid. She also had troponin elevation that peaked at 0.68, in the absence of anginal symptoms or EKG changes. Echocardiogram showed intact EF without wall motion abnormalities. Cardiology is consulted and she was started on ASA, BB and I advised the patient to follow up with them for outpatient ischemic workup. Her lisinopril/ hydrochlorothiazide was stopped due to her fluctuating creatinine and her BMP needs to be repeated in about 5 days to monitor her course while on PO bactrim. Discharge discussed with: patient, nurse, other (pharmacist) - Time Spent with Patient Total time spent providing and/or coordinating discharge services: Greater than 30 minutes - Discharge Medications Prescriptions: Aspirin Enteric Coated [Aspirin EC] 81 mg PO DAILY #30 tablet. Metoprolol [Lopressor] 12.5 mg PO BID #60 tablet Sulfamethoxazole/Trimeth DS [Bactrim DS] 1 each PO BID 11 Days #22 tablet Home Medications: Levothyroxine Sodium 75 mcg PO 0630 01/09/18 [History] Simvastatin [Zocor] 10 mg PO HS 01/09/18 [History] Tramadol HCl [Ultram] 50 mg PO HS 05/13/18 [History] Omeprazole [PriLOSEC] 40 mg PO DAILY@0730 4 Days #4 capsule. 05/27/18 [Rx] Rivaroxaban [Xarelto] 20 mg PO 1700 4 Days #4 tablet 05/27/18 [Rx] Potassium Chloride 20 mg PO DAILY 07/23/18 [History] Aspirin Enteric Coated [Aspirin EC] 81 mg PO DAILY #30 tablet. 07/29/18 [Rx] Metoprolol [Lopressor] 12.5 mg PO BID #60 tablet 07/29/18 [Rx] Sulfamethoxazole/Trimeth DS [Bactrim DS] 1 each PO BID 11 Days #22 tablet [Rx] Allergies/Adverse Reactions: 3 Allergy/AdvReac Type Severity Reaction Status Date / Time tramadol AdvReac Dizziness Verified 07/23/18 13:28 Date of admission: 07/24/18 17:40 Primary care physician: Maxwell Ramos MD Consults: 07/25/18 10:23 Consult to Cardiac Rehabilitation-Phase1 [CONS] Routine Comment: Reason for Consult: elevated tropoin Call Completed: No 07/25/18 10:52 Consult to Physical Therapy [CONS] Routine Comment: Evaluate, develop and implement POC Reason for Consult: deconditioning due to acute illness Does patient have active BEDREST order?: No Is patient medically & hemodynamically stable?: Yes - Constitutional Vitals: Temp Pulse Resp BP Pulse Ox 97.7 F 77 19 172/93 93 07/29/18 12:09 07/29/18 12:09 07/29/18 12:09 07/29/18 12:09 07/29/18 12:09 Exam: General: Alert and oriented, not in distress Cardiovascular:Normal S1 & S2, No JVD. Pulse regular. Lungs: equal breath sounds bilaterally, no wheezes/rales Abdomen:Soft, non-tender, midline scar well-healed. No guarding/rebound/rigidity Extremities:No deformity or swelling Neurological:Normal cognition and motor skills. Non-focal - Patient Status Disposition: Home Health Service Condition: Fair Overall status at discharge: patient is progressing back to baseline - Discharge Instructions Instructions: Atrial Fibrillation (DC) Follow Up With: Maxwell Ramos MD [Primary Care Provider] - Additional Instructions: Follow up with cardiology for outpatient ischemic workup Follow with surgery for persistent nausea post-op - Diet and Activity Activity: as per physical therapy Diet: advance to your usual diet
--- NOTE | 2018-07-29 13:15 | Physician Discharge Referral ---
Home Health/Hosp Referral Info Transfer to: Home Health - Diagnosis (1) Sepsis Priority: Primary Status: Acute (2) Gram-negative bacteremia Priority: Secondary Status: Acute (3) CECILLE (acute kidney injury) Priority: Secondary Status: Acute (4) Elevated troponin I level Priority: Secondary Status: Acute (5) Anemia Priority: Secondary Status: Acute (6) Thrombocytopenia Priority: Secondary Status: Acute (7) PAF (paroxysmal atrial fibrillation) Priority: Secondary Status: Acute (8) Hypothyroidism Priority: Secondary Status: Chronic (9) Physical deconditioning Priority: Secondary Status: Acute (10) DVT prophylaxis Priority: Secondary Status: Acute - Respiratory Orders Smoking Cessation: Smoking cessation has been advised. For more information, call the [place] Tobacco Quit Line at 0-267-SSSU-NOW. - Services Needed Following services are medically necessary services: Physical Therapy - Transfer Medications Prescriptions: Aspirin Enteric Coated [Aspirin EC] 81 mg PO DAILY #30 tablet. Metoprolol [Lopressor] 12.5 mg PO BID #60 tablet Sulfamethoxazole/Trimeth DS [Bactrim DS] 1 each PO BID 11 Days #22 tablet Home Medications: Levothyroxine Sodium 75 mcg PO 0630 01/09/18 [History] Simvastatin [Zocor] 10 mg PO HS 01/09/18 [History] Tramadol HCl [Ultram] 50 mg PO HS 05/13/18 [History] Omeprazole [PriLOSEC] 40 mg PO DAILY@0730 4 Days #4 capsule. 05/27/18 [Rx] Rivaroxaban [Xarelto] 20 mg PO 1700 4 Days #4 tablet 05/27/18 [Rx] Potassium Chloride 20 mg PO DAILY 07/23/18 [History] Aspirin Enteric Coated [Aspirin EC] 81 mg PO DAILY #30 tablet. 07/29/18 [Rx] Metoprolol [Lopressor] 12.5 mg PO BID #60 tablet 07/29/18 [Rx] Sulfamethoxazole/Trimeth DS [Bactrim DS] 1 each PO BID 11 Days #22 tablet [Rx] Allergies/Adverse Reactions: 3 Allergy/AdvReac Type Severity Reaction Status Date / Time tramadol AdvReac Dizziness Verified 07/23/18 13:28 Certification: Further, I certify that my clinical findings support that this patient is homebound (i.e. absences from home require considerable and taxing effort and are for medical reasons or restoration services or infrequently or short duration when for other reasons) because: Homebound Reason: Patient requires assistance of a person or device to safely leave home Attestation: My signature below is to certify that this patient is under my care and that I, or nurse practitioner, or a physician's children's nursery assistant working with me, has a face-to -face encounter with this patient.
--- NOTE | 2018-07-29 16:06 | Infectious Disease Progress No ---
Date of Encounter: 07/29/18 Time of Encounter: 09:00 - Assessment and Plan (1) Sepsis Status: Acute The patient had two SIRS criteria on admission. Likely secondary to bacteremia. Improved. WBC normal. No documented fevers, but the patient has been noted to have chills and rigors while here in the hospital. Chills resolved. Intermittent tachycardia resolved. Blood cultures drawn 07/23/18 are positive 2/2 sets for E. coli per PCR, sensitive to ertapenem and trimethoprim/sulfamethoxazole. Blood cultures drawn are also positive for 2/2 sets for E.coli. Urine culture 07/24/18 is positive for E.coli, sensitive to ertapenem and trimethoprim/sulfamethoxazole. Qualifiers: Sepsis type: sepsis due to unspecified organism Qualified Code(s): A41.9 - Sepsis, unspecified organism (2) Gram-negative bacteremia Status: Acute Causative organism: E. coli per PCR. Source: Urinary. Urine culture 07/24/18 positive for E.coli, sensitive to ertapenem and trimethoprim/sulfamethoxazole. CT abdomen and pelvis negative for intra-abdominal source. Blood cultures drawn 07/23/18 are positive 2/2 sets for E. coli per PCR, sensitive to ertapenem and trimethoprim/sulfamethoxazole. Blood culture drawn are positive 2/2 sets for E.coli. Blood cultures drawn 07/27/18 and 07/28/18 are NGTD. Patient can be switched from IV Ertapenem to PO Bactrim. Treat through 08/07. Creatinine clearance calculated at >30. Renal dosing not needed. Monitor renal function and for drug toxicity and dose-adjust antibiotics. (3) Hyponatremia Status: Acute Likely secondary to poor PO intake since her surgery. Improved. Sodium level today is 136. Management per the primary team. (4) Elevated troponin Status: Acute Troponin elevated in the setting of sepsis, bacteremia, mild CECILLE, anemia. Patient denies chest pain. ECG with no acute ischemic changes noted. TTE 05/2018 with LVEF 60%, mild diastolic dysfunction, no segmental wall motion abnormalities noted. Repeat TTE with LVEF preserved, no segmental wall motion abnormalities noted. Management per Cardiology team. (5) Atrial fibrillation with controlled ventricular rate Status: Acute (6) Hypertension Status: Chronic Qualifiers: Hypertension type: essential hypertension Qualified Code(s): I10 - Essential (primary) hypertension (7) Hypothyroidism Status: Chronic Qualifiers: Hypothyroidism type: unspecified Qualified Code(s): E03.9 - Hypothyroidism , unspecified - Subjective Interval history: Patient seen and examined. Patient is sitting comfortably on bed and eating breakfast. No acute events noted overnight. Patient states feeling fine. Patient denies pain at this time. Denies fevers, chills, or rigors. Denies chest pain, shortness of breath. Denies cough. Denies nausea, vomiting, or diarrhea. Denies abdominal pain or appetite changes. Denies oral thrush or new skin lesions. Denies urinary frequency or dysuria. Infect Dis PN-Objective Data - Labs CBC & Chem 7: 07/29/18 03:00 07/29/18 03:00 Labs: Laboratory Results - last 24 hr 07/29/18 07/29/18 03:00 03:00 WBC 10.0 RBC 3.08 L Hgb 8.7 L Hct 27.3 L MCV 88.6 MCH 28.2 MCHC 31.9 RDW 15.8 H Plt Count 162 MPV 9.8 Seg Neutrophils % 52.0 Lymphocytes % 40.0 Monocytes % 4.0 Metamyelocytes % 4.0 H Neutrophils # 5.2 Lymphocytes # 4.0 Monocytes # 0.4 Platelet Estimate Normal Polychromasia 1+ A Sodium 136 Potassium 3.4 L Chloride 109 H Carbon Dioxide 20 L BUN 9 Creatinine 0.93 Est GFR ( Amer) > 60 Est GFR (Non-Af Amer) 58 L BUN/Creatinine Ratio 10 Glucose 84 Calculated Osmolality 280 Calcium 8.1 L Cultures: Cultures 07/28/18 04:36 Blood Culture - Preliminary Peripheral Venipuncture Culture is incubating and being continuously monitored for growth. Final report to follow. 07/28/18 04:34 Blood Culture - Preliminary Peripheral Venipuncture Culture is incubating and being continuously monitored for growth. Final report to follow. 07/26/18 04:29 Blood Culture - Final Peripheral Venipuncture Escherichia coli MDRO 07/26/18 04:29 Blood Culture - Final Peripheral Venipuncture Escherichia coli MDRO 07/24/18 17:45 Urine Culture - Final Urine,Clean Catch Escherichia coli MDRO 07/27/18 01:32 Blood Culture - Preliminary Peripheral Venipuncture Culture is incubating and being continuously monitored for growth. Final report to follow. 07/27/18 01:32 Blood Culture - Preliminary Peripheral Venipuncture Culture is incubating and being continuously monitored for growth. Final report to follow. Serology 07/26/18 07/24/18 Range/Units 04:29 17:45 Urine Color Yellow (Yellow) Urine Clarity Turbid A (Clear) Urine pH 6.0 (5.0-8.0) pH Units Ur Specific [place] > 1.030 H (1.010-1.025) Urine Protein 100 H (Neg-Trace) mg/dL Urine Glucose (UA) Normal (Normal) mg/dL Urine Ketones Trace H (Negative) mg/dL Urine Blood Moderate H (Negative) Urine Nitrite Negative (Negative) Urine Bilirubin Negative (Negative) Urine Urobilinogen Normal (Normal) mg/dL Ur Leukocyte Esterase Large H (Negative) Urine Microscopic RBC 5-15 H (0-3) per hpf Urine Microscopic WBC TNTC H (0-3) per hpf Ur Squamous Epith Cells Many H (None-Few) per lpf Urine Bacteria Moderate H (None-Few) per hpf Hyaline Casts None Seen (None-Few) per lpf Ur Culture Indicated? NO. A (NO) A. baumannii (PCR) Not Detected (Not Detect) Linda albicans (PCR) Not Detected (Not Detect) C. glabrata (PCR) Not Detected (Not Detect) C. krusei (PCR) Not Detected (Not Detect) C. parapsilosis (PCR) Not Detected (Not Detect) C. tropicalis (PCR) Not Detected (Not Detect) Enterobacteriac sp PCR DETECTED A (Not Detect) E. cloacae complex PCR Not Detected (Not Detect) Enterococcus sp PCR Not Detected (Not Detect) E. coli (PCR) DETECTED A (Not Detect) H. influenzae (PCR) Not Detected (Not Detect) Klebsiella oxytoca PCR Not Detected (Not Detect) Klebsiella pneumoniae Not Detected (Not Detect) List. monocytogenes PCR Not Detected (Not Detect) N. meningitidis (PCR) Not Detected (Not Detect) Proteus species (PCR) Not Detected (Not Detect) Serratia marcescens PCR Not Detected (Not Detect) Staphylococcus sp PCR Not Detected (Not Detect) Staph aureus (PCR) Not Detected (Not Detect) Streptococcus sp PCR Not Detected (Not Detect) Group A Strep DNA Not Detected (Not Detect) Group B Strep (PCR) Not Detected (Not Detect) Strep pneumoniae (PCR) Not Detected (Not Detect) P. aeruginosa (PCR) Not Detected (Not Detect) KPC (blaKPC) Detect PCR Not Detected (Not Detect) Exam - Constitutional Vitals: Temp Pulse Resp BP Pulse Ox 97.7 F 77 19 172/93 93 07/29/18 12:09 07/29/18 12:09 07/29/18 12:09 07/29/18 12:09 07/29/18 12:09 General appearance: cooperative, no acute distress, obese - Head Head exam: Present: atraumatic, normal inspection, normocephalic - Eye Eye exam: Present: EOMI, normal appearance, PERRL Pupils: Present: normal accommodation - ENT ENT exam: Present: mucous membranes moist - Neck Neck exam: Present: normal inspection - Respiratory Respiratory exam: Present: CTAB. Absent: rales, respiratory distress, rhonchi, wheezes - Cardiovascular Cardiovascular exam: Present: RRR, +S1, +S2 - GI/Abdominal GI/Abdominal exam: Present: normal bowel sounds, soft. Absent: distended, tenderness - Extremities Exam Extremities exam: Present: normal inspection, pedal edema (2+ pitting edema at ankles bilaterally ). Absent: joint swelling, tenderness - Back Exam Back exam: Present: normal inspection - Neurological Exam Neurological exam: Present: alert, oriented X3, no focal deficits - Psychiatric Psychiatric exam: Present: normal affect, normal mood - Skin Skin exam: Present: dry, intact, normal color, warm Consult Discharge Plan - Plan Instructions: Atrial Fibrillation (DC), Sepsis (DC), Anemia (GEN) Additional Instructions: Follow up with cardiology for outpatient ischemic workup Follow with surgery for persistent nausea post-op Referrals: Maxwell Ramos MD [Primary Care Provider] - (patient will have to call for an appt) Yamilet Kiser DO [Partnered Physician] - (office will call for an appt.) Prescriptions: Aspirin Enteric Coated [Aspirin EC] 81 mg PO DAILY #30 tablet. Metoprolol [Lopressor] 12.5 mg PO BID #60 tablet Sulfamethoxazole/Trimeth DS [Bactrim DS] 1 each PO BID 11 Days #22 tablet - Attending Attestation I examined this patient and my medical decision-making was reviewed with the Resident Physician. I agree with the documented findings, disposition and treatment plan as described except to the extent set forth below.
== END 2018-07-29 15:16 | disposition home health service (06) | DRG 871 ==
LOC: 2ANU 11:21 → EMEROOARM 11:21 → SUATTDRO 14:09 → 2ANU 14:32
PROVIDERS: ADMIT Internal Medicine; ATTEND Internal Medicine